=== PATIENT | male | born 1950 | race Caucasian/White ===

== ENCOUNTER → 2017-03-28 | Outpatient (CLI) | payer OTHER ==
[~2017-03-28] MED LIST: BLOOD PRESSURE; BLOOD SUGAR PO; CHOLESTEROL
[2017-03-28 17:17] LABS: BASO % 0.5 %; BASO ABS # 0.03 K/uL (0-0.2); COMPLETE YES; EOS % 2.3 %; IG% 0.8 %; LYMPH % 29.3 %; LYMPH ABS # 1.93 K/uL (1.2-3.4); MEAN CELL VOLUME 88.9 fL (80-100); MEAN CORPUSCULAR HEMOGLOBIN 30.2 pg (25-34); NEUT % 57.1 %; PLATELET COUNT 189 K/uL (130-400); RED BLOOD COUNT 5.06 M/uL (4.7-6.1); WHITE BLOOD COUNT 6.58 K/uL (4.8-10.8)
[2017-03-28 17:23] LABS: ALT/SGPT 34 U/L (12-78); BLOOD UREA NITROGEN 18 mg/dl (7-18); CALCIUM 9.9 mg/dl (8.5-10.1); CARBON DIOXIDE 29 mmol/L (21-32); CHLORIDE 100 mmol/L (98-107); CHOLESTEROL 120 mg/dl (0-200); CREATININE 0.94 mg/dl (0.60-1.40); GLUCOSE 165 mg/dl (70-99); POTASSIUM 3.7 mmol/L (3.5-5.1); SODIUM 136 mmol/L (136-145)
[2017-03-28 17:35] LABS: ALB/GLOB RATIO 0.9 (0.9-2); ALKALINE PHOSPHATASE 58 U/L (45-117); AST/SGOT 18 U/L (15-37); CHOLESTEROL/HDL RATIO 2.7; HDL CHOLESTEROL 45 mg/dl; LDL CHOLESTEROL CALCULATED 51 mg/dl; TRIGLYCERIDES 119 mg/dl (0-150); VERY LOW DENSITY LIPOPROT CALC 24 mg/dl
[2017-03-29 06:02] LABS: ESTIMATED AVERAGE GLUCOSE 160 mg/dl; HA1C FLAG Normal (Normal)
--- NOTE | 2017-04-03 12:30 | CODING QUERY MEDICAL NECESSITY ---
CQSUPPORTING DIAGNOSIS NEEDED A supporting diagnosis is required for the test/procedure performed on this patient in order for us to be reimbursed by the patient's insurance. Please provide a supporting diagnosis for the following test/procedure listed below next to the test name along with your signature. *If there is no additional diagnosis for this patient that would support the following test/procedure please document that below next to the test/procedure. Test(s)/Procedure(s) that require a supporting diagnosis: DOS 03/28/17 GLYCATED HEMOGLOBIN TEST Provider Signature: Date: Thank you Lea Devries Health Information Management Once completed, please kindly fax back to [phone] For questions please call [phone]
== END | disposition home or self-care (01) ==
LOC: C.LABBC 14:42
PROVIDERS: ATTEND Physician Assistant
DX: Z12.5 Encounter for screening for malignant neoplasm of prostate (principal); I21.3 ST elevation (STEMI) myocardial infarction of unspecified site; Z11.59 Encounter for screening for other viral diseases; E11.9 Type 2 diabetes mellitus without complications

== ENCOUNTER → 2018-01-22 | Outpatient (CLI) | payer OTHER ==
[2018-01-22 13:05] LABS: BASO % 0.6 %; BASO ABS # 0.04 K/uL (0-0.2); EOS % 2.1 %; EOS ABS # 0.14 K/uL (0-0.5); HEMATOCRIT 46.4 % (42-52); HEMOGLOBIN 15.8 g/dL (14.0-18.0); IG# 0.07 K/uL (0.00-0.02); LYMPH % 28.9 %; LYMPH ABS # 1.94 K/uL (1.2-3.4); MEAN CELL VOLUME 89.2 fL (80-100); MEAN CORPUSCULAR HEMOGLOBIN 30.4 pg (25-34); MEAN CORPUSCULAR HGB CONC 34.1 g/dl (32-36); MEAN PLATELET VOLUME 9.8 fL (7.4-10.4); MONO % 8.6 %; MONO ABS # 0.58 K/uL (0.11-0.59); NEUT % 58.8 %; NEUT ABS # 3.95 K/uL (1.4-6.5); PLATELET COUNT 175 K/uL (130-400); RED CELL DISTRIBUTION WIDTH CV 14.3 % (11.5-14.5); RED CELL DISTRIBUTION WIDTH SD 46.5 fL (36.4-46.3); WHITE BLOOD COUNT 6.72 K/uL (4.8-10.8)
[2018-01-22 13:41] LABS: HEMOGLOBIN A1C 7.7 % (4.5-5.6)
[2018-01-22 15:07] LABS: ALBUMIN 4.2 gm/dl (3.4-5.0); ALKALINE PHOSPHATASE 64 U/L (45-117); ALT/SGPT 35 U/L (12-78); AST/SGOT 23 U/L (15-37); BLOOD UREA NITROGEN 15 mg/dl (7-18); CALCIUM 9.9 mg/dl (8.5-10.1); CARBON DIOXIDE 28 mmol/L (21-32); CHOLESTEROL 130 mg/dl (0-200); CREATININE 0.85 mg/dl (0.60-1.40); GLUCOSE 140 mg/dl (70-99); LDL CHOLESTEROL CALCULATED 55 mg/dl; POTASSIUM 3.8 mmol/L (3.5-5.1); SODIUM 133 mmol/L (136-145); TOTAL PROTEIN 8.5 gm/dl (6.4-8.2)
== END | disposition home or self-care (01) ==
LOC: C.LABBC 11:40
PROVIDERS: ATTEND Internal Medicine
DX: Z00.00 Encounter for general adult medical examination without abnormal findings (principal); I10 Essential (primary) hypertension; E11.9 Type 2 diabetes mellitus without complications; E78.5 Hyperlipidemia, unspecified; I25.10 Atherosclerotic heart disease of native coronary artery without angina pectoris

== ENCOUNTER 2019-06-28 11:30 | Inpatient (IN) ==
--- NOTE | 2019-06-28 12:07 | CT Scan Report ---
HEAD CT NONCONTRAST CT DOSE: 1459.56 mGycm HISTORY: Stroke symptoms. Right arm weakness. stroke alert TECHNIQUE: Multiaxial CT images of the head were performed without the use of intravenous contrast. A utomated exposure control was utilized for this study. A dose lowering technique was utilized adheri ng to the principles of ALARA. Comparison: Head CT 02/11/2019. Findings: The paranasal sinuses and mastoid air cells are clear. The calvarium and skull base are int act. There is no mass, hematoma, midline shift, acute infarct. White matter hypodensity is nonspecifi c but suggestive of microvascular ischemic change. The ventricles and sulci demonstrate mild age-rela diane involutional changes. Motion artifact. Impression: Motion artifact. No definite acute intracranial abnormality. Electronically signed by: Lucas Manuel M.D. 06/28/2019 12:06 PM
[2019-06-28 12:21] LABS: Basophils # (auto) 0.02 K/uL (0-0.2); Basophils % (auto) 0.3 %; Eosinophils # (auto) 0.12 K/uL (0-0.5); Eosinophils % (auto) 1.8 %; Hematocrit (blood only) 44.9 % (42-52); Hemoglobin 15.1 g/dL (14.0-18.0); Immature Granulocytes # (auto) 0.06 K/uL (0.00-0.02); Immature Granulocytes % (auto) 0.9 %; Lymphocytes # (auto) 1.39 K/uL (1.2-3.4); Lymphocytes % (auto) 21.2 %; Mean Corpuscular Hemoglobin 30.7 pg (25-34); Mean Corpuscular Hgb Conc 33.6 g/dL (32-36); Mean Corpuscular Volume 91.3 fL (80-100); Mean Platelet Volume 10.4 fL (7.4-10.4); Monocytes # (auto) 0.54 K/uL (0.11-0.59); Monocytes % (auto) 8.2 %; Neutrophils # (auto) 4.42 K/uL (1.4-6.5); Neutrophils % (auto) 67.6 %; Platelet Count 147 K/uL (130-400); RDW Coefficient of Variation 14.8 % (11.5-14.5); Red Blood Count 4.92 M/uL (4.7-6.1); White Blood Count 6.55 K/uL (4.8-10.8)
[2019-06-28] MEDS ORDERED: TPA for Stroke IV STA (12:34)
[2019-06-28 12:36] LABS: INR 1.1 (0.9-1.1); Partial Thromboplastin Time 26.5 Seconds (21.0-31.0); Prothrombin Time 11.5 Seconds (9.0-12.0)
[2019-06-28 12:40] LABS: Alanine Aminotransferase 29 U/L (12-78); Aspartate Aminotransferase 17 U/L (15-37); BUN Creatinine Ratio 18.2 (10-20); Bilirubin,Total 1.1 mg/dl (0.2-1); Blood Urea Nitrogen 14 mg/dl (7-18); Calcium 9.3 mg/dl (8.5-10.1); Carbon Dioxide 28 mmol/L (21-32); Chloride 102 mmol/L (98-107); Creatinine Clr Calc Pharmacy 110.1 ml/min; Est GFR (African American) 110.6; Est GFR (Non-African American) 95.4; Globulin 4.2 gm/dl (2.5-4.0); Glucose 113 mg/dl (70-99); Magnesium 2.2 mg/dl (1.8-2.4); Potassium 3.6 mmol/L (3.5-5.1); Sodium 138 mmol/L (136-145); Total Protein 8.2 gm/dl (6.4-8.2)
[2019-06-28 12:43] LABS: Alkaline Phosphatase 58 U/L (45-117); Troponin I < 0.015 ng/ml (0-0.045)
[2019-06-28] MEDS ORDERED: Alteplase Bolus 8.2 MG in SYRINGE 0 ML IV ONE (12:44)
[2019-06-28] MEDS ORDERED: ALTEPLASE IV ONE (12:45)
[2019-06-28] MEDS ORDERED: PRIMARY PLUMSET, PE LINED TUBING, 113 IN, NON-DEHP (2260-0500) IV ONE (12:45)
[2019-06-28] MEDS ORDERED: RECOMBINANT IV ONE (12:45)
[2019-06-28 13:09] LABS: Appearance Urine Clear (Clear); Bilirubin Urine Negative (Negative); Blood Urine Negative (Negative); Color Urine Yellow; Glucose Urine UA Negative (Negative); Ketones Urine Negative (Negative); Leukocyte Esterase Urine Negative (Negative); Nitrite Urine Negative (Negative); Protein Urine Negative (Negative); Specific Gravity Urine 1.015 (1.000-1.030); Urobilinogen Urine Negative (Negative)
--- NOTE | 2019-06-28 14:06 | History & Physical Report ---
Date of Service June 28, 2019 Assessment & Plan (1) CVA (cerebrovascular accident): Admit to ICU for acute ischemic stroke Continue TPA Continue management of acute stroke Neurochecks every 4 hours as per protocol Speech/swallow study Echocardiogram US venous Doppler, to rule out DVT CT angio head /neck CBC CMP BNP Replenish electrolytes PT/OT Neurology consult Lipid panel Start aspirin for stroke Started atorvastatin 40 mg nightly p.o. Patient is full code Present on Admission?: Yes (2) Right arm weakness: As above Present on Admission?: Yes (3) Intellectual disability: Chronic, continue monitoring, continue home meds Present on Admission?: Yes (4) Diabetes: ACHS, SSI , Glycemic control per pharmacy, A1c Present on Admission?: Yes (5) Dyslipidemia: Lipid panel pending, started atorvastatin 40 mg p.o. nightly Present on Admission?: Yes (6) Hypertension: Continue triamterene 37.5/hydrochlorothiazide 25 mg tablet Monitor blood pressure every 4 hours Present on Admission?: Yes History of Present Illness Chief Complaint: Weakness of the right upper extremity Primary Care Provider: Renzo Patten MD Patient is a 69 years old male with past medical history of mental retardation since , diabetes mellitus, dyslipidemia, hypertension, was brought to the e mergency room with a concern that he cannot move his right hand since this morning 8:30 and he has CVA. Her physician called the stroke center in [facility] and they recommended to start TPA for ischemic stroke. Initial CT of the head did not define acute intracranial abnormality. There are visible areas of hypodensity that are nonspecific but suggestive of microvascular ischemic changes seen on the head CT without contrast. Patient is poor historian and review of system is is difficult. Brother who was sitting next to patient bedside states that patient did not have headache chills fever chest pain, shortness of breath, syncope, near syncope, fall, hematemesis, hematuria, dysuria, hemoptysis, nausea, vomiting. There is no change in bowel movements. Labs are reviewed: WBC 6.55, hemoglobin 15.1, hematocrit 44.9, platelets 147, PT 11.5, INR 1.1, APTT 26.5, sodium 138, potassium 3.6, chloride 102, BUN 14, creatinine 95.4, glucose 113, hemoglobin A1c pending, troponin -0 0.015, AST 17, ALT 29, magnesium 2.2 bilirubin 1.1. Urine all negative. Decision was made to admit patient to the ICU for further treatment and management of acute stroke. Allergies Allergy/AdvReac Type Severity Reaction Status Date / Time No Known Allergies Allergy Verified 05/18/19 11:09 Home Medications Home Medications Medication Instructions Recorded Confirmed Type aspirin 81 mg PO PM 11/13/18 05/18/19 History glimepiride 2 mg PO PM 11/13/18 05/18/19 History lovastatin 20 mg PO PM 11/13/18 05/18/19 History sitagliptin [Januvia] 100 mg PO PM 11/13/18 05/18/19 History metformin ER 500 mg 2,000 mg PO DAILY tab 05/14/19 05/18/19 History tablet,extended release 24 hr benzonatate 200 mg capsule 200 mg PO TID PRN #30 cap 05/18/19 05/18/19 Rx acetaminophen 500 mg tablet 1,000 mg PO PM 06/25/19 History triamterene 37.5 1 tab PO QAM tab 06/25/19 History mg-hydrochlorothiazide 25 mg tablet Past Med/Surg History Medical History History of small bowel obstruction (Resolved) Mentally challenged (Chronic) Diabetes (Chronic) Dyslipidemia (Chronic) Hypertension (Chronic) GI bleed (Resolved) Surgical History History of cholecystectomy (Resolved) History of colonoscopy (Resolved) Social History Preferred Language: Tuvaluan Communication Ability: Impaired Communication Ability Comment: mentally challenged/disability Refurbish Technician Required: No Beliefs That Will Affect Care: None Current Living Situation: Family Other Information That Helps Us Care for You: No Feels Safe at Home: Yes Safety Concerns: Feels Safe At This Time Smoking Status: Never smoker Do You Dip or Chew Tobacco: No ; Second Hand Exposure: No ; Tobacco Cessation Education Requested by Patient: No Hx Alcohol Use: No Hx Substance Use: No Review of Systems Review of Systems: All systems reviewed & are unremarkable except as noted in HPI & below Physical Exam Constitutional: WD/WN, vitals as above well developed and + obese Eyes: PERRL, conjunctivae normal, anicteric sclerae ENMT: external ear and nose normal, oropharynx normal Neck: trachea midline, no thyromegaly Respiratory: normal respiratory effort, lungs clear to auscultation Cardiovascular: RRR, no murmur, no edema Chest (Breasts): normal inspection/palpation of breasts Gastrointestinal (Abdomen): normal bowel sounds, soft, nontender, no hepatosplenomegaly Musculoskeletal: Right upper extremity weakness 2 of 5. Poor coordination. Patient is having mental disability and difficult to follow the instructions. Skin: no rashes, warm and dry Neurologic: patellar DTR's 2+ bilat, sensation intact Psychiatric: Patient with severe mental disability, nonverbal, unable to follow the instructions nor transferred to questions. Lymphatic: no cervical or axillary lymphadenopathy Results & Data Vital Signs (Past 12 Hours) Vital Signs Temp Pulse Pulse Resp BP BP Pulse Ox 06/28/19 13:51 75 18 158/73 H 96 06/28/19 13:37 76 20 139/76 96 06/28/19 13:21 74 22 150/84 H 96 06/28/19 13:07 74 18 152/94 H 97 06/28/19 12:53 76 18 158/97 H 96 06/28/19 12:24 78 20 158/74 H 97 06/28/19 12:09 72 20 162/89 H 97 06/28/19 12:01 97 06/28/19 11:59 78 22 173/96 H 97 06/28/19 11:58 96 06/28/19 11:34 36.9 C 81 18 179/102 H 100 Code Status & VTE Plan Code Status Family, brother POA requested full code VTE Prophylaxis Plan VTE Prophylaxis will be ordered: Yes PG Care Time/CCT Total # of Minutes Spent Total Time Spent with Patient: Total time spent is greater than 50% in coordination of care (as documented) at patient's floor/unit and/or counseling patient: (1) CVA (cerebrovascular accident) CVA mechanism: unspecified Qualified Code(s): I63.9 - Cerebral infarction, unspecified
--- NOTE | 2019-06-28 15:14 | Critical Care Consultation ---
Date of Consultation June 28, 2019 Assessment & Plan (1) CVA (cerebrovascular accident): REason Critically Ill: 69 year old man with history of intellectual disability who presents with stroke like symptoms status post TPA infusion Neuro: Right sided weakness last seen well at 8:[address] head, CTA head and neck negative Will consult neurology and continue to check neuro status Baseline intellectual disability, family says he is at his baseline Cardiovascular Possible stroke status post TPA Will monitor in ICU for 24 hours Rescan tomorrow around noon and step down to the floor Respiratory: No concerns at this time GI: No concern over GI issues at this time Renal: No concern for renal issues at this time. ID: No acute infection Dispo: ICU s/p TPA F/E/N: REgular diet DVT Ppx: Contraindicated secondary to TPA (2) Right arm weakness: (3) Intellectual disability: (4) History of small bowel obstruction: (5) History of cholecystectomy: (6) History of colonoscopy: (7) Mentally challenged: (8) Diabetes: (9) Dyslipidemia: Supervising Physician Co-Signing Physician Notes Dr. Swanson was the resident-physician during care of patient. I separately evaluated patient for taylor portions of the history and the exam. I was present during the critical portion of medical decision making, and I discussed the case with the resident. I generally agree with the findings and plan except for any additions/exceptions noted. Patient has baseline decrease mentation. Patient follows command. Keep systolic blood pressure less than 160. Continue with stroke protocol with neuro checks. Fall precautions. Follow-up CT head in [address] head is negative patient can be downgraded to medical floor. I have personally spent 35 minutes of critical care time in the direct management of this patient. This is a life/limb threatening event. This includes time spent evaluating patient, direct bedside care, chart review, placing orders, interpretation of diagnostic studies, discussion with consultants, patient, and/or family members regarding treatment decisions, as well as other required patient management activities. This time is exclusive of all separately billable procedures, and teaching time and separate from and in addition to any other critical care service time. History of Present Illness Reason for Consultation: Stroke; status post TPA Requesting Physician: Dr. Lazaro BUTLER Attending Physician: Dr. Bhumika BUTLER History of Present Illness Allen Bella is a 69 year old man with a past medical history significant for mental retardation, hypertension, hyperlipidemia, type II diabetes, and living under care of his brother. He was last seen well at around 8:30 this morning before he went in to a group adult daycare around nine am his family was called saying something was wrong with the right side of his body in particular his right arm. He was brought in to the emergency department and noted to have some abnormal right arm muscle strength and tone. After consulting with [facility] the decision was made to begin TPA. Patient is currently resting comfortably and says he feels fine. He is unable to give me a very thorough history but most of the history has been provided from his brother and sister who are present at bedside and the emergency room physician taking care of him. Allergies Allergy/AdvReac Type Severity Reaction Status Date / Time No Known Allergies Allergy Verified 05/18/19 11:09 Home Medications Home Medications Medication Instructions Recorded Confirmed Type aspirin 81 mg PO PM 11/13/18 05/18/19 History glimepiride 2 mg PO PM 11/13/18 05/18/19 History lovastatin 20 mg PO PM 11/13/18 05/18/19 History sitagliptin [Januvia] 100 mg PO PM 11/13/18 05/18/19 History metformin ER 500 mg 2,000 mg PO DAILY tab 05/14/19 05/18/19 History tablet,extended release 24 hr benzonatate 200 mg capsule 200 mg PO TID PRN #30 cap 05/18/19 05/18/19 Rx acetaminophen 500 mg tablet 1,000 mg PO PM 06/25/19 History triamterene 37.5 1 tab PO QAM tab 06/25/19 History mg-hydrochlorothiazide 25 mg tablet Patient History Medical History History of small bowel obstruction (Resolved) Mentally challenged (Chronic) Diabetes (Chronic) Dyslipidemia (Chronic) Hypertension (Chronic) GI bleed (Resolved) Surgical History History of cholecystectomy (Resolved) History of colonoscopy (Resolved) Social History Preferred Language: Armenian Communication Ability: Impaired Communication Ability Comment: mentally challenged/disability Compact Assembler Required: No Beliefs That Will Affect Care: None Current Living Situation: Family Other Information That Helps Us Care for You: No Feels Safe at Home: Yes Safety Concerns: Feels Safe At This Time Smoking Status: Never smoker Do You Dip or Chew Tobacco: No ; Second Hand Exposure: No ; Tobacco Cessation Education Requested by Patient: No Hx Alcohol Use: No Hx Substance Use: No Review of Systems Review of Systems: Unobtainable due to cognitive status Physical Exam Physical Exam: Constitutional: Patient appears comfortable and content, no apparent distress Eyes: EOMMI, PERRLA, anicteric sclerae ENMT: No abnormalities detected REspiratory: Chest expansion clear, regular resp rate, lungs clear to auscultation, breath sounds vesicular Cardiovascular: Regular rate and rhythm, no murmurs, rubs skips, or gallops. No edema, distal pulses intact GI: Abdomen soft, nontender Skin: No evidence of bleeding or ecchymosis Neuro: Right upper extremity weakness, difficult to obtain numbness. Patient is mentally challenged baseline Results & Data Vital Signs (Past 12 Hours) Vital Signs Temp Pulse Pulse Resp BP BP Pulse Ox 06/28/19 15:00 76 20 133/67 97 06/28/19 14:22 80 18 150/71 H 96 06/28/19 14:07 78 18 138/83 96 06/28/19 13:51 75 18 158/73 H 96 06/28/19 13:37 76 20 139/76 96 06/28/19 13:21 74 22 150/84 H 96 06/28/19 13:07 74 18 152/94 H 97 06/28/19 12:53 76 18 158/97 H 96 06/28/19 12:24 78 20 158/74 H 97 06/28/19 12:09 72 20 162/89 H 97 06/28/19 12:01 97 06/28/19 11:59 78 22 173/96 H 97 06/28/19 11:58 96 06/28/19 11:34 36.9 C 81 18 179/102 H 100 PG Care Time/CCT Total # of Minutes Spent Total Time Spent with Patient: Total time spent is greater than 50% in coordination of care (as documented) at patient's floor/unit and/or counseling patient: Resident Activity Tracking Resident Involvement: Resident Care Provided Care Provided: Adult Hospital Medicine (1) CVA (cerebrovascular accident) CVA mechanism: unspecified Qualified Code(s): I63.9 - Cerebral infarction, unspecified
[2019-06-28] MEDS ORDERED: CARBOHYDRATES FOR HYPOGLYCEMIA PO PRN (16:02)
[2019-06-28] MEDS ORDERED: BENZONATATE 100 MG CAPSULE PO PRN (16:02)
[2019-06-28] MEDS ORDERED: DEXTROSE 50% 50 ML SYRINGE IV PRN (16:02)
[2019-06-28] MEDS ORDERED: GLUCAGON FOR INJ 1 MG VIAL SQ PRN (16:02)
[2019-06-28] MEDS ORDERED: GLUCOSE 10 TABS/TUBE PO PRN (16:02)
[2019-06-28] MEDS ORDERED: GLUCOSE 40% GEL 15 GM TUBE PO PRN (16:02)
[2019-06-28] MEDS ORDERED: PHARMACY GLYCEMIC MGMT CONSULT PRN (16:12)
[2019-06-28] MEDS ORDERED: PHARMACIST DISCHARGE MED REC CONSULT PRN (16:13)
[2019-06-28] MEDS ORDERED: OPTIRAY 320 125ml IV PRN (17:23)
--- NOTE | 2019-06-28 17:50 | Emergency Department Note ---
Entered by Tonie Amaral acting as a scribe for History of Present Illness General Chief complaint: Weakness Stated complaint: RT ARM NO STRENGTH/RT LEG Source: patient Limitations: other (MR) History of Present Illness Provider complaint: Stroke Symptoms Onset (ago): hour(s) 3 Location: head Radiation: extremity (Right arm) Maximum Pain Intensity: 0 Exacerbated By: + none Associated symptoms: + other (Right wrist limp) The patient is a 69 year old male who presents to the Emergency Room with complaints of stroke symptoms that began about 3 hours ago. The patient's family states that the symptoms radiate into the patient's right arm and are not exacerbated by anything specific. The patient's family reports that the patient's last known well was at 8:30am and now he is experiencing right wrist weakness. The patient's family denies any recent falls or trauma and the patient has not been sick. The patient's family denies any history of stroke. HPI and ROS limited secondary to MR. Patient has had some more difficulty getting around lately and has been using his walker more frequently. Home Medications Home Medications Medication Instructions Recorded Confirmed Type aspirin 81 mg PO PM 11/13/18 05/18/19 History glimepiride 2 mg PO PM 11/13/18 05/18/19 History lovastatin 20 mg PO PM 11/13/18 05/18/19 History sitagliptin [Januvia] 100 mg PO PM 11/13/18 05/18/19 History metformin ER 500 mg 2,000 mg PO DAILY tab 05/14/19 05/18/19 History tablet,extended release 24 hr benzonatate 200 mg capsule 200 mg PO TID PRN #30 cap 05/18/19 05/18/19 Rx acetaminophen 500 mg tablet 1,000 mg PO PM 06/25/19 History triamterene 37.5 1 tab PO QAM tab 06/25/19 History mg-hydrochlorothiazide 25 mg tablet Allergies Allergy/AdvReac Type Severity Reaction Status Date / Time No Known Allergies Allergy Verified 05/18/19 11:09 Past Med/Surg History Medical History History of small bowel obstruction (Resolved) Mentally challenged (Chronic) Diabetes (Chronic) Dyslipidemia (Chronic) Hypertension (Chronic) GI bleed (Resolved) Surgical History History of cholecystectomy (Resolved) History of colonoscopy (Resolved) Social History Preferred Language: French Communication Ability: Impaired Communication Ability Comment: mentally challenged/disability 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 Physical Exam Vital Signs Vital Signs - 24 hr 06/28/19 11:34 06/28/19 11:58 06/28/19 11:59 Temperature 36.9 C Temperature Source Oral Sepsis Recent Fever Within 48 Hours No Sepsis New/Unexplained Change in Mental Status No Sepsis Action Taken by Nursing No Action Required Pulse Rate 81 Pulse Rate [Apical] 78 Pulse Rhythm [Apical] Regular Pulse Strength [Apical] Respiratory Rate 18 22 Respiratory Effort / Characteristics Non-Labored Spontaneous Respiratory Depth Normal Respiratory Pattern Blood Pressure 179/102 H Blood Pressure [Right Arm] 173/96 H Blood Pressure Mean 127 Blood Pressure Mean [Right Arm] 121 Blood Pressure Position Sitting Blood Pressure Position [Right Arm] Pulse Oximetry 100 96 97 Oxygen Delivery Method Room Air Room Air 06/28/19 12:01 06/28/19 12:09 06/28/19 12:24 Temperature Temperature Source Sepsis Recent Fever Within 48 Hours Sepsis New/Unexplained Change in Mental Status Sepsis Action Taken by Nursing Pulse Rate Pulse Rate [Apical] 72 78 Pulse Rhythm [Apical] Regular Regular Pulse Strength [Apical] Normal Normal Respiratory Rate 20 20 Respiratory Effort / Characteristics Non-Labored Spontaneous Respiratory Depth Normal Normal Respiratory Pattern Blood Pressure Blood Pressure [Right Arm] 162/89 H 158/74 H Blood Pressure Mean Blood Pressure Mean [Right Arm] 113 102 Blood Pressure Position Blood Pressure Position [Right Arm] Pulse Oximetry 97 97 97 Oxygen Delivery Method Room Air Room Air Room Air 06/28/19 12:53 06/28/19 13:07 06/28/19 13:21 Temperature Temperature Source Sepsis Recent Fever Within 48 Hours Sepsis New/Unexplained Change in Mental Status Sepsis Action Taken by Nursing Pulse Rate Pulse Rate [Apical] 76 74 74 Pulse Rhythm [Apical] Regular Regular Regular Pulse Strength [Apical] Normal Normal Normal Respiratory Rate 18 18 22 Respiratory Effort / Characteristics Non-Labored Non-Labored Non-Labored Respiratory Depth Normal Normal Normal Respiratory Pattern Regular Blood Pressure Blood Pressure [Right Arm] 158/97 H 152/94 H 150/84 H Blood Pressure Mean Blood Pressure Mean [Right Arm] 117 113 106 Blood Pressure Position Blood Pressure Position [Right Arm] Sitting Pulse Oximetry 96 97 96 Oxygen Delivery Method Room Air Room Air Room Air 06/28/19 13:37 06/28/19 13:51 Temperature Temperature Source Sepsis Recent Fever Within 48 Hours Sepsis New/Unexplained Change in Mental Status Sepsis Action Taken by Nursing Pulse Rate Pulse Rate [Apical] 76 75 Pulse Rhythm [Apical] Regular Regular Pulse Strength [Apical] Normal Normal Respiratory Rate 20 18 Respiratory Effort / Characteristics Non-Labored Respiratory Depth Normal Normal Respiratory Pattern Blood Pressure Blood Pressure [Right Arm] 139/76 158/73 H Blood Pressure Mean Blood Pressure Mean [Right Arm] 97 101 Blood Pressure Position Blood Pressure Position [Right Arm] Pulse Oximetry 96 96 Oxygen Delivery Method Room Air GENERAL: Patient is in no acute distress. HEENT: No acute trauma, normocephalic atraumatic, mucous membranes moist, no nasal congestion, no scleral icterus. NECK: No stridor, no adenopathy, no meningismus, trachea is midline. LUNGS: Clear to auscultation bilaterally, no wheeze, no rhonchi, breath sounds equal. HEART: Without murmurs gallops or rubs, regular rate and rhythm. ABDOMEN: Soft, nontender, bowel sounds positive, no hernias, no peritonitis. EXTREMITIES: No cyanosis or edema, full range of motion of all the joints without pain or difficulty, no signs for acute trauma. NEUROLOGIC: Some speech slur which is apparently baseline. No facial droop. No weakness in lower extremities. Right wrist supervisor covering and lining is poor. Movement of right arm seems uncontrolled. Proximal arm strength seems reasonable while distal arm is weak. SKIN: No rash, no jaundice, no diaphoresis. Course 1138: Past medical records reviewed. The patient was evaluated in room A01. A complete history and physical exam was performed. 1154: I spoke with Dr. Langley Sur[facility] about the patient's case. 1221: I followed up with Dr. Bundy about the patient's case and she believes she sees something on the CT that was not reported by radiology. 1226: I spoke with Dr. Manuel- Maggie about the patient's CT. The finding on CT noted by neurology was felt old, not subacute. 1245: I spoke with Dr. Bonilla about the patient's case and accepted the patient for further evaluation. 1253: I spoke with Dr. Corbett about the patient's case. Administered Medications Insulin Aspart (Novolog Flexpen) 0 units SC ACHS RONNIE Stop: 07/28/19 16:29 Last Admin: 06/28/19 18:01 Dose: 2 units Documented by: [id number] Cosigned by: [id number] Ioversol (Optiray 320 125ml) 120 ml IV ONCE PRN PRN Reason: Interaction Checking Stop: 07/02/19 17:22 Last Admin: 06/28/19 17:26 Dose: 120 ml Documented by: [id number] Discontinued Medications Alteplase, Recombinant (Activase For Stroke) 1 ea IV NOW STA; Protocol Stop: 06/28/19 12:35 Last Admin: 06/28/19 18:02 Dose: Not Given Documented by: [id number] Alteplase, Recombinant 8.2 mg/ (Syringe) 8.2 mls @ 8.2 mls/min IV ONCE ONE Stop: 06/28/19 12:45 Last Admin: 06/28/19 12:37 Dose: 8.2 mls/min Documented by: [id number] Cosigned by: [id number] Alteplase, Recombinant 74 mg/ (EMPTY BAG) 0.74 mls @ 0.74 mls/hr IV ONCE ONE Stop: 06/28/19 12:46 Last Infusion: 06/28/19 13:54 Dose: 0 mls/hr Documented by: [id number] Cosigned by: [id number] Admin: 06/28/19 12:39 Dose: 0.7 mls/hr Documented by: [id number] Cosigned by: [id number] Medical Decision Making Differential Diagnosis Differentials Include: Stroke, intracranial bleed, electrolyte imbalance, anemia, infection, medication reaction, seizure, nerve impingement, and trauma. Medical Records Attestation: I reviewed the patient's medical records. Home Medications Current Medication List: was personally reviewed by me Laboratory Data Attestation: I reviewed the patient's lab results. Result diagrams: 06/28/19 12:06 06/28/19 12:06 Lab Results 06/28/19 06/28/19 06/28/19 Range/Units 11:56 12:06 12:06 WBC 6.55 (4.8-10.8) K/uL RBC 4.92 (4.7-6.1) M/uL Hgb 15.1 (14.0-18.0) g/dL Hct 44.9 (42-52) % MCV 91.3 (80-100) fL MCH 30.7 (25-34) pg MCHC 33.6 (32-36) g/dL RDW Std Deviation 50.0 H (36.4-46.3) fL RDW Coeff of Ludin 14.8 H (11.5-14.5) % Plt Count 147 (130-400) K/uL MPV 10.4 (7.4-10.4) fL Immature Gran % (Auto) 0.9 % Neut % (Auto) 67.6 % Lymph % (Auto) 21.2 % [place] % (Auto) 8.2 % Eos % (Auto) 1.8 % Baso % (Auto) 0.3 % Immature Gran # (Auto) 0.06 H (0.00-0.02) K/uL Neut # (Auto) 4.42 (1.4-6.5) K/uL Lymph # (Auto) 1.39 (1.2-3.4) K/uL Candler # (Auto) 0.54 (0.11-0.59) K/uL Eos # (Auto) 0.12 (0-0.5) K/uL Baso # (Auto) 0.02 (0-0.2) K/uL PT 11.5 (9.0-12.0) Seconds INR 1.1 (0.9-1.1) APTT 26.5 (21.0-31.0) Seconds PTT Ratio 1.0 Sodium (136-145) mmol/L Potassium (3.5-5.1) mmol/L Chloride (98-107) mmol/L Carbon Dioxide (21-32) mmol/L Anion Gap (3-11) BUN (7-18) mg/dl Creatinine (0.6-1.4) mg/dl Est Cr Clr Drug Dosing ml/min Est GFR ( Amer) Est GFR (Non-Af Amer) BUN/Creatinine Ratio (10-20) Glucose (70-99) mg/dl POC Glucose 110 H (70-99) Calcium (8.5-10.1) mg/dl Magnesium (1.8-2.4) mg/dl Total Bilirubin (0.2-1) mg/dl AST (15-37) U/L ALT (12-78) U/L Alkaline Phosphatase (45-117) U/L Troponin I (0-0.045) ng/ml Total Protein (6.4-8.2) gm/dl Albumin (3.4-5.0) gm/dl Globulin (2.5-4.0) gm/dl Albumin/Globulin Ratio (0.9-2) Urine Color Urine Appearance (Clear) Urine pH (4.5-7.5) Ur Specific [place] (1.000-1.030) Urine Protein (Negative) Urine Glucose (UA) (Negative) Urine Ketones (Negative) Urine Blood (Negative) Urine Nitrite (Negative) Urine Bilirubin (Negative) Urine Urobilinogen (Negative) Ur Leukocyte Esterase (Negative) 06/28/19 06/28/19 Range/Units 12:06 12:55 WBC (4.8-10.8) K/uL RBC (4.7-6.1) M/uL Hgb (14.0-18.0) g/dL Hct (42-52) % MCV (80-100) fL MCH (25-34) pg MCHC (32-36) g/dL RDW Std Deviation (36.4-46.3) fL RDW Coeff of Ludin (11.5-14.5) % Plt Count (130-400) K/uL MPV (7.4-10.4) fL Immature Gran % (Auto) % Neut % (Auto) % Lymph % (Auto) % Cand[place] % (Auto) % Eos % (Auto) % Baso % (Auto) % Immature Gran # (Auto) (0.00-0.02) K/uL Neut # (Auto) (1.4-6.5) K/uL Lymph # (Auto) (1.2-3.4) K/uL Cand[place] # (Auto) (0.11-0.59) K/uL Eos # (Auto) (0-0.5) K/uL Baso # (Auto) (0-0.2) K/uL PT (9.0-12.0) Seconds INR (0.9-1.1) APTT (21.0-31.0) Seconds PTT Ratio Sodium 138 (136-145) mmol/L Potassium 3.6 (3.5-5.1) mmol/L Chloride 102 (98-107) mmol/L Carbon Dioxide 28 (21-32) mmol/L Anion Gap 8.0 (3-11) BUN 14 (7-18) mg/dl Creatinine 0.74 (0.6-1.4) mg/dl Est Cr Clr Drug Dosing 110.1 ml/min Est GFR ( Amer) 110.6 Est GFR (Non-Af Amer) 95.4 BUN/Creatinine Ratio 18.2 (10-20) Glucose 113 H (70-99) mg/dl POC Glucose (70-99) Calcium 9.3 (8.5-10.1) mg/dl Magnesium 2.2 (1.8-2.4) mg/dl Total Bilirubin 1.1 H (0.2-1) mg/dl AST 17 (15-37) U/L ALT 29 (12-78) U/L Alkaline Phosphatase 58 (45-117) U/L Troponin I < 0.015 (0-0.045) ng/ml Total Protein 8.2 (6.4-8.2) gm/dl Albumin 4.0 (3.4-5.0) gm/dl Globulin 4.2 H (2.5-4.0) gm/dl Albumin/Globulin Ratio 1.0 (0.9-2) Urine Color Yellow Urine Appearance Clear (Clear) Urine pH 6.0 (4.5-7.5) Ur Specific [place] 1.015 (1.000-1.030) Urine Protein Negative (Negative) Urine Glucose (UA) Negative (Negative) Urine Ketones Negative (Negative) Urine Blood Negative (Negative) Urine Nitrite Negative (Negative) Urine Bilirubin Negative (Negative) Urine Urobilinogen Negative (Negative) Ur Leukocyte Esterase Negative (Negative) Imaging Data Radiologist's Impression: Radiology results as stated below per my review and the radiologist's interpretation: HEAD CT NONCONTRAST CT DOSE: 1459.56 mGycm HISTORY: Stroke symptoms. Right arm weakness. stroke alert TECHNIQUE: Multiaxial CT images of the head were performed without the use of intravenous contrast. Automated exposure control was utilized for this study. A dose lowering technique was utilized adhering to the principles of ALARA. Comparison: Head CT 02/11/2019. Findings: The paranasal sinuses and mastoid air cells are clear. The calvarium and skull base are intact. There is no mass, hematoma, midline shift, acute infarct. White matter hypodensity is nonspecific but suggestive of microvascular ischemic change. The ventricles and sulci demonstrate mild age-related involutional changes. Motion artifact. Impression: Motion artifact. No definite acute intracranial abnormality. Electronically signed by: Lucas Manuel M.D. 06/28/2019 12:06 PM ECG Data Attestation: I personally reviewed and interpreted this ECG as follows: Indication: weakness Rate (beats per minute): 77 Rhythm: sinus rhythm Findings: + other (Old inferior infarct, QTC 407), + PAC and + T-wave inversion (Lateral); no ST elevation Comparison ECG Date: from (02/11/2019) Change: no significant change Blood Pressure Blood Pressure Findings: Elevated blood pressure Blood Pressure Disposition: further management by hospitalist [facility] Narrative There is no leukocytosis or worrisome anemia. No coagulopathy. No significant electrolyte abnormality or kidney failure. No evidence for liver enzyme elevation. EKG showed a sinus rhythm, no acute ischemia. Cardiac enzyme testing x1 is not consistent with acute cardiac injury. Urinalysis does not show evidence for infection. Brain CT shows no acute bleed or mass-effect. The patient presents with right arm weakness. Certainly, his findings were consistent with CVA. Given the findings and timing, a stroke alert was called. The patient was seen by neurology via telemedicine. Risks and benefits of TPA administration were discussed with the patient's brother. Patient did not have any contraindications for TPA. Blood pressure was reasonable. TPA was administered as he was within the 4-1/2-hour time window. There was some delay with TPA administration as there was some question on the CT reading that I discussed not only with neurology but also with the radiologist. The patient is in need of a hospital stay. His findings are consistent with CVA. He has been given TPA, hopefully we will see some improvement in his right arm weakness over the next few hours. I did speak to case management, I did consult the hospitalist as well as the ICU attending. Impression & Plan CVA (cerebrovascular accident), Right arm weakness, Intellectual disability Critical Care Time Critical Care Time: Yes Total Critical Care Time: 50 I have personally spent 50 minutes of critical care time in the direct management of this patient. This includes bedside care, interpretation of diagnostic studies, and testing, discussion with consultants, patient, and family members, and other required patient management activities. This 50 minutes is in excess of all separately billable procedures. Discharge Plan Visit Data *Final* Discharge Date/Time: 06/28/19 15:42 Chief Complaint: Weakness Stated Complaint: RT ARM NO STRENGTH/RT LEG ED Provider: Carlton Coelho Discharge Problem: CVA (cerebrovascular accident), Right arm weakness, Intellectual disability Patient Disposition: Admitted As Inpatient Discharge Instructions Interventions: ED Discharge Assessment Last Done: 06/28/19 15:42 Discharge Problem: CVA (cerebrovascular accident) Qualifiers: CVA mechanism: unspecified Qualified Code(s): I63.9 - Cerebral infarction, unsp ecified The scribe's documentation has been prepared under my direction and personally reviewed by me in its entirety. I confirm that the note above accurately reflects all work, treatment, procedures, and medical decision making performed by me.
[2019-06-28] MEDS: INSULIN ASPART 100 UNITS/ML 3 ML PEN SC SCH ×2 (18:01→20:38)
--- NOTE | 2019-06-28 18:03 | Ultrasound Report ---
US venous doppler LE CLINICAL HISTORY: 69 years-old Male presenting with stroke, leg pain, concern for DVT. TECHNIQUE: Real-time grayscale and color and spectral Doppler ultrasound imaging of the veins of the bilateral lower extremities was performed. Compression and augmentation were also utilized. COMPARISON: None. FINDINGS: RIGHT: Common femoral vein: Patent. Greater saphenous vein (superficial): Patent. Deep femoral vein: Patent. Femoral vein: Patent. Popliteal vein: Patent. Calf veins: Patent. LEFT: Common femoral vein: Patent. Greater saphenous vein (superficial): Patent. Deep femoral vein: Patent. Femoral vein: Patent. Popliteal vein: Patent. Calf veins: Patent. Other: None. IMPRESSION: No evidence of deep venous thrombosis. Electronically signed by: Renzo Ruth M.D. 06/28/2019 6:02 PM
--- NOTE | 2019-06-28 18:08 | CT Scan Report ---
CT ANGIOGRAM OF THE BRAIN; CT ANGIOGRAM OF THE NECK CLINICAL HISTORY: Strokelike symptoms. Right arm weakness. COMPARISON STUDY: Unenhanced CT of the brain performed the same day 06/28/2019. Carotid artery ultras ound dated 10/18/2010. TECHNIQUE: Following the IV administration of 120 of Optiray 320, CT angiogram of the head and neck w as performed from the aortic arch to the vertex. Images are reviewed in the axial, sagittal, and esteban nal planes. 3-D MIPS images are created and assessed. IV contrast was administered without complicati on. All measurements were calculated based on NASCET criteria. A dose lowering technique was utilize d adhering to the principles of ALARA. CT DOSE: 1305.96 mGycm FINDINGS: Brain parenchyma: There is age-related involutional change noting mild to moderate patchy subcortical and periventricular microangiopathic disease. There is no hemorrhage or mass effect. There is no vitaliy dence of enhancing mass lesion on the angiogram phase images. The ventricles, sulci, and cisterns are prominent secondary to involutional change. Question loss of alcantar-white matter differentiation left posterior parietal lobe. No extra-axial fluid collection is seen. Thoracic aorta: There is mild atherosclerotic calcification of the thoracic aorta. Visualized portion s of the thoracic aorta are normal in caliber. The aortic arch demonstrates standard 3-vessel anatomy . Right carotid arterial system: The right common carotid artery is widely patent, as are the right int ernal and external carotid arteries. Atherosclerotic plaque is noted in the carotid bulb. Left carotid arterial system: The left common carotid artery is widely patent. Advanced atherosclerot ic plaque is noted in the carotid bulb. There is high-grade stenosis with near complete occlusion (gr eater than 90% stenosis) at the origin of the left internal carotid artery. There is also high-grade stenosis with near complete occlusion at the origin of the left external carotid artery. Vertebral arteries: The vertebral arteries are patent bilaterally noting a right-sided dominance. Subclavian arteries: Widely patent bilaterally. Intracranial vasculature: There is atherosclerotic calcification of the cavernous carotid and vertebr al arteries. The internal carotid arteries are patent at the skull base, as are the anterior and midd le cerebral arteries bilaterally. The vertebrobasilar system and posterior cerebral arteries are wide ly patent. The right vertebral artery is dominant. There is no aneurysm, high-grade stenosis, or foca l vessel cut off seen throughout the intracranial circulation. Jugular veins: Patent bilaterally. Dural sinuses: Patent. Lung apices: Partially visualized upper lobe lung parenchyma appears clear. Soft tissues: The visualized pharyngeal soft tissues are normal in appearance noting angiographic pha se technique. The oropharyngeal airway appears widely patent. The salivary and thyroid glands are nor mal in appearance. No cervical lymphadenopathy is seen. Skeletal structures: The skeletal structures are osteopenic. The calvarium appears intact. The cervic al spine is maintained noting multilevel spondylosis. No lytic or blastic lesion is seen. Orbits: The bony orbits are intact. Orbital contents are normal in appearance. Sinuses and mastoids: Trace mucosal thickening is noted in the right maxillary antrum. The remaining paranasal sinuses are clear. The mastoid air cells are well pneumatized. IMPRESSION: 1. Question focal loss of alcantar-white matter differentiation is the left posterior parietal lobe. A fo cus of acute to subacute ischemia is not excluded. Consider MRI for further assessment. 2. Unremarkable CT angiogram of the brain. 3. There is high-grade stenosis (greater than 90%) at the origin of the left internal carotid artery. The remainder of the left internal carotid artery is patent. 4. There is also high-grade stenosis at the origin of the left external carotid artery. 5. The right carotid arterial system and the vertebral arteries are patent. Electronically signed by: Carlton Shen M.D. 06/28/2019 6:07 PM
[2019-06-28] MEDS: CALCIUM CARBONATE 500 MG CHEWABLE TAB PO PRN (19:35)
[2019-06-28] MEDS ORDERED: ACETAMINOPHEN 325 MG TAB PO PRN (20:28)
[2019-06-28] MEDS ORDERED: LOVASTATIN 20 MG TAB PO SCH (21:00)
[2019-06-28] MEDS ORDERED: ASPIRIN 81 MG ECTAB PO SCH (21:00)
[2019-06-29] MEDS: TRIAMTERENE/HCTZ 37.5/25MG TAB PO SCH (07:49)
[2019-06-29] MEDS: ATORVASTATIN 40 MG TAB PO SCH (07:49)
[2019-06-29] MEDS: INSULIN ASPART 100 UNITS/ML 3 ML PEN SC SCH ×4 (07:49→20:40)
[2019-06-29] MEDS: CALCIUM CARBONATE 500 MG CHEWABLE TAB PO PRN ×2 (07:52→17:59)
--- NOTE | 2019-06-29 08:58 | Critical Care Progress Note ---
Date of Service June 29, 2019 Assessment & Plan (1) CVA (cerebrovascular accident): REason Critically Ill: 69 year old man with history of intellectual disability who presents with stroke like symptoms status post TPA infusion Neuro: Right sided weakness last seen well at 8:[address] head, CTA head and neck negative Will consult neurology and continue to check neuro status Baseline intellectual disability, family says he is at his baseline Cardiovascular Possible stroke status post TPA Will monitor in ICU for [address] head at around 1 pm today. Potentially able to step down pending normal scan Respiratory: No concerns at this time GI: No concern over GI issues at this time Renal: No concern for renal issues at this time. ID: No acute infection Dispo: ICU s/p TPA F/E/N: REgular diet DVT Ppx: Contraindicated secondary to TPA (2) Right arm weakness: (3) Intellectual disability: (4) History of small bowel obstruction: (5) History of cholecystectomy: (6) History of colonoscopy: (7) Diabetes: (8) Dyslipidemia: Supervising Physician Co-Signing Physician Notes Dr. Swanson was the resident-physician during care of patient. I separately evaluated patient for taylor portions of the history and the exam. I was present during the critical portion of medical decision making, and I discussed the case with the resident. I generally agree with the findings and plan except for any additions/exceptions noted. Patient doing better. No adverse events to TPA. Blood pressure well controlled. Denies any complaints. We will repeat a CT head today. Patient should be able to go to stepdown unit. Right upper extremity weakness still persists. No slurring of speech appreciated. No difficulty swallowing. Mild crackles appreciated bilateral lower lobes. Will start patient on incentive spirometry. I have personally spent 32 minutes of critical care time in the direct management of this patient. This is a life/limb threatening event. This includes time spent evaluating patient, direct bedside care, chart review, placing orders, interpretation of diagnostic studies, discussion with consultants, patient, and/or family members regarding treatment decisions, as well as other required patient management activities. This time is exclusive of all separately billable procedures, and teaching time and separate from and in addition to any other critical care service time. Tito Bella is resting comfortably this morning, no apparent distress. He tells me he is not having any pain, and he feels normal. Review of Systems Review of Systems: All systems reviewed & are unremarkable except as noted in HPI & below Physical Exam Physical Exam: Constitutional: Patient appears comfortable and content, no apparent distress Eyes: EOMMI, PERRLA, anicteric sclerae ENMT: No abnormalities detected REspiratory: Chest expansion clear, regular resp rate, lungs clear to auscultation, breath sounds vesicular Cardiovascular: Regular rate and rhythm, no murmurs, rubs skips, or gallops. No edema, distal pulses intact GI: Abdomen soft, nontender Skin: No evidence of bleeding or ecchymosis Neuro: Right upper extremity weakness, difficulty raising it above about a 35 degree angle of flexion. Difficulty touching my finger with right hand as well. Cannot make a point. difficult to ascertain sensation. Results & Data Vital Signs (Past 12 Hours) Vital Signs Temp Pulse Pulse Resp BP BP BP 06/29/19 08:30 81 16 142/87 H 06/29/19 07:30 36.7 C 73 15 136/83 06/29/19 06:30 74 18 155/85 H 06/29/19 05:30 73 20 134/90 06/29/19 04:30 75 18 165/82 H 06/29/19 03:30 36.7 C 71 20 156/94 H 156/94 H 06/29/19 02:30 73 20 146/78 H 06/29/19 01:30 71 18 160/94 H 06/29/19 00:30 36.8 C 71 22 161/90 H 06/28/19 23:30 73 20 140/87 06/28/19 22:30 36.8 C 72 20 114/86 06/28/19 21:30 83 18 110/76 06/28/19 21:00 78 110/76 Pulse Ox 06/29/19 08:30 93 06/29/19 07:30 93 06/29/19 06:30 92 06/29/19 05:30 94 06/29/19 04:30 96 06/29/19 03:30 94 06/29/19 02:30 95 06/29/19 01:30 95 06/29/19 00:30 93 06/28/19 23:30 96 06/28/19 22:30 95 06/28/19 21:30 99 06/28/19 21:00 97 PG Care Time/CCT Total # of Minutes Spent Total Time Spent with Patient: Total time spent is greater than 50% in c oordination of care (as documented) at patient's floor/unit and/or counseling patient: Critical Care Time: Yes Total Critical Care Time: 32 Resident Activity Tracking Resident Involvement: Resident Care Provided Care Provided: Adult Hospital Medicine (1) CVA (cerebrovascular accident) CVA mechanism: unspecified Qualified Code(s): I63.9 - Cerebral infarction, unspecified
[2019-06-29] MEDS ORDERED: INSULIN GLARGINE SOLOSTAR 100 UNITS/ML 3 ML PEN SC SCH (09:30)
--- NOTE | 2019-06-29 10:07 | Neurology Consultation ---
Date of Consultation June 29, 2019 Assessment & Plan (1) CVA (cerebrovascular accident): Probable acute stroke localizing to the left cerebral hemisphere resulting in a persistent right hemiparesis, primarily affecting the distal right upper extremity with subtle involvement of the face as well. There may be some associated neurocognitive dysfunction as well although this issue is a bit difficult to assess in light of his history of intellectual disability. He was able to name and repeat simple phrases but did have some difficulty following commands. He does have some signs of visual neglect to the right. Stroke etiology likely large vessel atheroembolic related to the greater than 90% stenosis of the left internal carotid artery. I would recommend a brain MRI with and without contrast for further assessment. Patient will also need a consultation with vascular surgery for the left internal carotid artery stenosis. Continue with atorvastatin. Continue medical management of hypertension. Current blood pressure seems appropriate. Avoid aggressive lowering of blood pressure. Would start clopidogrel 75 mg/day 24 hours after administration of TPA. Patient will need a transthoracic echocardiogram with bubble study as well. Consultations with PT/OT/speech therapy. History of Present Illness Reason for Consultation: stroke Requesting Physician: Torres Bonilla MD Attending Physician: Dax Finch MD History of Present Illness The patient is a 69-year-old male with a chief complaint of right upper extremity weakness that began acutely about 3 hours prior to arrival in the emergency department. He was noted to have poor housekeeping lead strength for the right hand as well as some clumsiness or poorly controlled movement of the right arm in general. His speech was felt to be somewhat dysarthric as well although he has significant intellectual disability at baseline and who is uncertain if his speech character was significantly altered. He did seem to have some difficulty following instructions and commands as well during his initial assessment. His presentation was concerning for an acute stroke localizing to the left cerebral hemisphere. A tele-stroke consultation was obtained and he was subsequently administered TPA. The patient continues to display some right upper extremity weakness this morning, notably affecting the right hand. He has some cognitive difficulty as well although he has been generally felt to be back to his baseline in this regard. Past medical history notable for diabetes mellitus, hypertension, and hyperlipidemia. He takes a daily low-dose aspirin, antihypertensive, and statin. Additional details as below. Family history noncontributory Allergies Allergy/AdvReac Type Severity Reaction Status Date / Time No Known Allergies Allergy Verified 05/18/19 11:09 Home Medications Home Medications Medication Instructions Recorded Confirmed Type aspirin 81 mg PO PM 11/13/18 05/18/19 History glimepiride 2 mg PO PM 11/13/18 05/18/19 History lovastatin 20 mg PO PM 11/13/18 05/18/19 History sitagliptin [Januvia] 100 mg PO PM 11/13/18 05/18/19 History metformin ER 500 mg 2,000 mg PO DAILY tab 05/14/19 05/18/19 History tablet,extended release 24 hr benzonatate 200 mg capsule 200 mg PO TID PRN #30 cap 05/18/19 05/18/19 Rx acetaminophen 500 mg tablet 1,000 mg PO PM 06/25/19 History triamterene 37.5 1 tab PO QAM tab 06/25/19 History mg-hydrochlorothiazide 25 mg tablet Patient History Medical History History of small bowel obstruction (Resolved) Mentally challenged (Chronic) Diabetes (Chronic) Dyslipidemia (Chronic) Hypertension (Chronic) GI bleed (Resolved) Surgical History History of cholecystectomy (Resolved) History of colonoscopy (Resolved) Social History Preferred Language: Syriac Communication Ability: Impaired Communication Ability Comment: mentally challenged/disability Machine Setter Required: No Beliefs That Will Affect Care: None Current Living Situation: Family Other Information That Helps Us Care for You: No Feels Safe at Home: Yes Safety Concerns: Feels Safe At This Time Smoking Status: Never smoker Do You Dip or Chew Tobacco: No ; Second Hand Exposure: No ; Tobacco Cessation Education Requested by Patient: No Hx Alcohol Use: No Hx Substance Use: No Review of Systems Constitutional: no fever, no chills and no fatigue Eyes: no blind spots and no diplopia Ear, Nose, Mouth, Throat: no tinnitus and no hearing loss Respiratory: no cough and no dyspnea Cardiovascular: no chest pain and no palpitations Gastrointestinal: no nausea and no vomiting Genitourinary: no dysuria and no urinary incontinence Musculoskeletal: no myalgia Integumentary: no rash and no lesions Neurologic: as per Subjective / HPI; no tremor(s), no seizure-like activity and no headache(s) Psychiatric: no depression and no anxiety Hematologic / Lymphatic: no easy bleeding and no easy bruising Physical Exam Physical Exam: The patient is a well-developed, well-nourished elderly male. He is alert and fully oriented. Recent and remote memory cannot be adequately assessed due to intellectual disabilities. Attention and concentration normal. Patient is able to name objects and repeat phrases. He is able to follow simple commands, but does so with mild difficulty. Patient seems to have a normal comprehension of vocabulary. General fund of knowledge probably limited. There appears to be an element of visual neglect with confrontation testing to the right visual field. Visual acuity normal. Pupils equal round reactive to light and accommodation. Eye movements normal. There is no ptosis, nystagmus, or ophthalmoplegia. Facial sensation intact. There is flattening of the right nasolabial fold. Hearing intact. Palate elevates to midline. Shoulder shrug intact. Tongue protrudes to midline. Sensation intact to all modalities in all 4 limbs. Patient does not extinguish to double simultaneous stimulation area deep tendon reflexes are slightly increased for the right arm and leg as compared to the left. Plantar response for the right foot equivocal, left foot downgoing. Patient exhibits dysmetria [id number] and [id number] on the right. Ophthalmoscopic examination reveals normal-appearing optic disks and posterior segments. No papilledema or hemorrhages. Carotid pulses normal bilaterally, no bruits to auscultation. Gait and station cannot be tested due to safety concerns. Evaluation of muscle strength reveals a mild to moderate right hemiparesis, right arm greater than leg, affecting the face to a subtle degree as well. Patient has more significant weakness for the right upper extremity distally with impaired housekeeping lead strength and wrist extension strength. Distal strength 2 or 3 out of 5. Strength for the remaining limbs normal. Mus nicolasa tone normal throughout. No atrophy. No abnormal movements observed. Results & Data Vital Signs (Past 12 Hours) Vital Signs Temp Pulse Pulse Resp BP BP BP 06/29/19 09:30 80 18 138/94 06/29/19 09:01 82 22 124/53 L 06/29/19 08:30 81 16 142/87 H 06/29/19 07:30 36.7 C 73 15 136/83 06/29/19 06:30 74 18 155/85 H 06/29/19 05:30 73 20 134/90 06/29/19 04:30 75 18 165/82 H 06/29/19 03:30 36.7 C 71 20 156/94 H 156/94 H 06/29/19 02:30 73 20 146/78 H 06/29/19 01:30 71 18 160/94 H 06/29/19 00:30 36.8 C 71 22 161/90 H 06/28/19 23:30 73 20 140/87 06/28/19 22:30 36.8 C 72 20 114/86 Pulse Ox 06/29/19 09:30 92 06/29/19 09:01 91 06/29/19 08:30 93 06/29/19 07:30 93 06/29/19 06:30 92 06/29/19 05:30 94 06/29/19 04:30 96 06/29/19 03:30 94 06/29/19 02:30 95 06/29/19 01:30 95 06/29/19 00:30 93 06/28/19 23:30 96 06/28/19 22:30 95 Laboratory Results WBC 6.55, hemoglobin 15.1, hematocrit 44.9, platelet count 147, sodium 138, potassium 3.6, BUN 14, creatinine 0.74, glucose 113, magnesium 2.2, transaminases normal Diagnostic Findings A CT of the head completed yesterday was negative for hemorrhage or acute process. There are nonspecific white matter hypodensities suggestive of chronic microvascular ischemic change. The ventricles are moderately enlarged. I reviewed the images as well as the radiologist interpretation of this test. CT angiography of the head and neck reveal a high-grade stenosis, greater than 90% at the origin of the left internal carotid artery. There is a radiolucency within the left posterior parietal lobe suggestive of a subacute to acute stroke in this location. I reviewed the images as well as the radiologist interpretation of this test. Electrocardiogram reveals a sinus rhythm with occasional premature supraventricular complexes. 77 bpm. (1) CVA (cerebrovascular accident) CVA mechanism: unspecified Qualified Code(s): I63.9 - Cerebral infarction, unspecified
--- NOTE | 2019-06-29 10:32 | Hospitalist Progress Note ---
Date of Service June 29, 2019 Assessment & Plan (1) CVA (cerebrovascular accident): Day 2 s/p tPA Echocardiogram without embolic cause [address] head with no hemorrhage - started on VTE prophylaxis and plavix (patient admitted while taking ASA) Suspected cause from left carotid stenosis seen on CTA Started atorvastatin 40 mg nightly p.o. (2) Carotid artery stenosis with cerebral infarction: Vascular consult pending NPO after midnight (3) Right arm weakness: As above (4) Intellectual disability: Chronic, unclear severity (5) Diabetes: Home meds - glimepiride, sitagliptin and metformin Prior to consideration of carotid endarterectomy will continue management with insulin. BSG ACHS, SSI , Glycemic control per pharmacy, A1c (6) Dyslipidemia: LDL 37 on lovastatin, started atorvastatin 40 mg p.o. nightly (7) Hypertension: Continue triamterene 37.5/hydrochlorothiazide 25 mg tablet Monitor blood pressure every 4 hours (8) DVT prophylaxis: Lovenox 40mg SQ daily Subjective Patient seen in the morning. Able to move all 4 limbs but clearly favoring left side with less co-ordination on right. Denies any pain, change in speech or hear ing. Review of Systems Review of Systems: Unobtainable due to cognitive status Physical Exam Constitutional: WD/WN, vitals as above Eyes: PERRL; sclerae not anicteric and normal pupil size Respiratory: normal respiratory effort, lungs clear to auscultation Cardiovascular: RRR, no murmur, no edema Neurologic: + focal motor deficit (generalized right upper extremity weakness) Speech / Cognition: no expressive aphasia Motor/Sensory: no tremor and no sensory deficit (difficult to assess given interlectual disability) Cranial Nerves: PERRL, EOM intact bilaterally, normal facial strength, tongue midline, able to elevate shoulders bilaterally and no nystagmus Incomplete exam as patient only able to follow simple commands Psychiatric: Orientation: alert; + not oriented x 3 Results & Data Vital Signs (Past 12 Hours) Vital Signs Temp Pulse Pulse Resp BP BP BP 06/29/19 09:30 80 18 138/94 06/29/19 09:01 82 22 124/53 L 06/29/19 08:30 81 16 142/87 H 06/29/19 07:30 98.1 F 73 15 136/83 06/29/19 06:30 74 18 155/85 H 06/29/19 05:30 73 20 134/90 06/29/19 04:30 75 18 165/82 H 06/29/19 03:30 98.1 F 71 20 156/94 H 156/94 H 06/29/19 02:30 73 20 146/78 H 06/29/19 01:30 71 18 160/94 H 06/29/19 00:30 98.2 F 71 22 161/90 H 06/28/19 23:30 73 20 140/87 Pulse Ox 06/29/19 09:30 92 06/29/19 09:01 91 06/29/19 08:30 93 06/29/19 07:30 93 06/29/19 06:30 92 06/29/19 05:30 94 06/29/19 04:30 96 06/29/19 03:30 94 06/29/19 02:30 95 06/29/19 01:30 95 06/29/19 00:30 93 06/28/19 23:30 96 PG Care Time/CCT Total # of Minutes Spent Total Time Spent with Patient: Total time spent is greater than 50% in coordination of care (as documented) at patient's floor/unit and/or counseling patient: (1) CVA (cerebrovascular accident) CVA mechanism: unspecified Qualified Code(s): I63.9 - Cerebral infarction, unspecified
[2019-06-29] MEDS ORDERED: PERFLUTREN LIPID MICROSPHERE (DEFINITY) IV ONE (11:29)
[2019-06-29 12:58] LABS: Basophils # (auto) 0.03 K/uL (0-0.2); Basophils % (auto) 0.4 %; Eosinophils % (auto) 1.3 %; Hemoglobin 15.1 g/dL (14.0-18.0); Immature Granulocytes # (auto) 0.03 K/uL (0.00-0.02); Immature Granulocytes % (auto) 0.4 %; Lymphocytes # (auto) 1.44 K/uL (1.2-3.4); Lymphocytes % (auto) 18.6 %; Mean Corpuscular Hgb Conc 34.3 g/dL (32-36); Mean Corpuscular Volume 90.3 fL (80-100); Mean Platelet Volume 10.1 fL (7.4-10.4); Monocytes # (auto) 0.57 K/uL (0.11-0.59); Monocytes % (auto) 7.4 %; Neutrophils # (auto) 5.57 K/uL (1.4-6.5); Neutrophils % (auto) 71.9 %; Platelet Count 159 K/uL (130-400); RDW Coefficient of Variation 14.7 % (11.5-14.5); RDW Standard Deviation 49.1 fL (36.4-46.3); Red Blood Count 4.87 M/uL (4.7-6.1); White Blood Count 7.74 K/uL (4.8-10.8)
[2019-06-29 13:06] LABS: Estimated Average Glucose 146 mg/dl; Hemoglobin A1C 6.7 % (4.5-5.6)
--- NOTE | 2019-06-29 13:12 | CT Scan Report ---
CT head/brain wo con CLINICAL HISTORY: 24 hour post tPA scanned. Stroke. Evaluate for hemorrhage.. COMPARISON STUDY: 06/28/2019 TECHNIQUE: Axial CT of the brain is performed from the vertex to the skull base. IV contrast was not administered for this examination. A dose lowering technique was utilized adhering to the principles of ALARA. CT DOSE: 1459.56 mGycm FINDINGS: No intra or extra-axial mass lesions are visualized. There is no CT evidence of acute cortical infarc tion. There is no evidence of midline shift. There is no acute hemorrhage. No calvarial fractures ar e visualized. Increased density at the tentorium remain stable. This likely represents tentorial calc ification. There are patchy white matter hypodensities likely on a small vessel basis. There is a more focal macario p white matter infarct within the left centrum semiovale. There is no evidence of pathologic ventricular dilatation. There is a trace right mastoid effusion. IMPRESSION: 1. No acute intracranial hemorrhage. 2. No acute intracranial findings Electronically signed by: Edmond Mei M.D. 06/29/2019 1:11 PM
[2019-06-29 13:13] LABS: INR 1.2 (0.9-1.1); Partial Thromboplastin Time 26.6 Seconds (21.0-31.0); Prothrombin Time 11.8 Seconds (9.0-12.0)
[2019-06-29 13:23] LABS: BUN Creatinine Ratio 14.8 (10-20); Calcium 9.3 mg/dl (8.5-10.1); Creatinine Clr Calc Pharmacy 105.9 ml/min; Est GFR (African American) 108.8; Est GFR (Non-African American) 93.9; Potassium 3.5 mmol/L (3.5-5.1)
--- NOTE | 2019-06-29 14:02 | Pharmacy Report ---
Pharmacy Glycemic Short Note 2 - Date of Service June 29, 2019 - Glycemic Short BSG Results (Last 24 hours): 06/28/19 06/28/19 06/29/19 16:18 20:26 07:45 Glucose POC Glucose 91 111 H 214 H 06/29/19 06/29/19 11:08 12:46 Glucose 240 H POC Glucose 196 H OUTPATIENT ANTIDIABETIC REGIMEN: * Metformin 2000mg ER daily * Glimepiride 2mg qpm * Januvia 100mg qpm ASSESSMENT: * Patient presenting with CVA well controlled on outpatient oral antidiabetic medications and required minimal insulin yesterday. Patient was mildly hyperglycemic this morning but trended back down at lunch. A weight based lantus dose between a stress level 1 and 2 was given this morning and a scale will be ordered for this evening based on BSG. The patient does appear to be tolerating a diet. PLAN FOR INPATIENT GLYCEMIC CONTROL: * Hold outpatient oral diabetes medications * Basal insulin * Lantus 10 units SQ this morning * Lantus 5,8,or 15 units this evening based on BSG (SEE MAR for details) * Bolus insulin * NovoLog per scale ACHS or Q6hrs while NPO * Goal Range: Low 110 mg/dL - High 140 mg/dL * Correction Factor: 30 mg/dL/unit * Nutritional / Prandial insulin per carb ratio of 1 unit per 10 grams CHO consumed PLAN FOR DISCHARGE: * Patient well controlled on outpatient regimen, would recommend continuing at discharge
[2019-06-29] MEDS ORDERED: ASPIRIN 81 MG ECTAB PO STA (15:14)
[2019-06-29] MEDS: CLOPIDOGREL BISULFATE 75 MG TAB PO SCH (19:35)
[2019-06-29] MEDS ORDERED: ENOXAPARIN INJ 40 MG/0.4 ML SYR SQ SCH (20:00)
[2019-06-29] MEDS: INSULIN GLARGINE SOLOSTAR 100 UNITS/ML 3 ML PEN SC SCH (20:41)
--- NOTE | 2019-06-29 23:35 | Magnetic Resonance Report ---
MRI OF THE BRAIN WITHOUT CONTRAST CLINICAL HISTORY: Possible stroke. COMPARISON STUDY: Head CT June 29, 2019. CTA of the head and head CT June 28, 2019. TECHNIQUE: Utilizing a 1.5 Sana magnet and dedicated coil, multiplanar, multiecho imaging of the bra in was performed without IV contrast. FINDINGS: This exam is moderately compromised by motion artifact. However, diffusion weighted sequenc e demonstrates multifocal acute infarcts within the left parietal lobe and posterior aspect of the le ft frontal lobe. There is no mass effect or no hemorrhage is identified. Ventricular dilatation is un changed. The basilar cisterns are patent. There are no extra axial collections. Flow-voids within the right mastoid air cells is noted. There is a suspected additional old infarct within the left pariet al lobe. IMPRESSION: 1. Multifocal small acute infarcts within the left parietal and posterior left frontal lobes. No mass effect. No hemorrhage. 2. Exam moderately compromised by motion artifact. 3. Old left parietal infarct. Electronically signed by: Lamont Wilson M.D. 06/29/2019 11:34 PM
[2019-06-30 06:05] LABS: Basophils # (auto) 0.02 K/uL (0-0.2); Basophils % (auto) 0.3 %; Eosinophils % (auto) 3.2 %; Hematocrit (blood only) 44.7 % (42-52); Immature Granulocytes # (auto) 0.02 K/uL (0.00-0.02); Immature Granulocytes % (auto) 0.3 %; Lymphocytes % (auto) 23.7 %; Mean Corpuscular Hgb Conc 33.6 g/dL (32-36); Mean Corpuscular Volume 89.4 fL (80-100); Monocytes # (auto) 0.74 K/uL (0.11-0.59); Monocytes % (auto) 11.7 %; Neutrophils # (auto) 3.86 K/uL (1.4-6.5); Neutrophils % (auto) 60.8 %; Platelet Count 152 K/uL (130-400); RDW Coefficient of Variation 14.9 % (11.5-14.5); RDW Standard Deviation 48.5 fL (36.4-46.3); White Blood Count 6.34 K/uL (4.8-10.8)
[2019-06-30 06:19] LABS: INR 1.1 (0.9-1.1); Partial Thromboplastin Time 26.8 Seconds (21.0-31.0); Prothrombin Time 11.5 Seconds (9.0-12.0)
[2019-06-30 06:40] LABS: BUN Creatinine Ratio 17.9 (10-20); Calcium 9.3 mg/dl (8.5-10.1); Creatinine Clr Calc Pharmacy 98.7 ml/min; Est GFR (Non-African American) 94.9; Potassium 3.3 mmol/L (3.5-5.1)
[2019-06-30 07:03] LABS: Estimated Average Glucose 146 mg/dl; Hemoglobin A1C 6.7 % (4.5-5.6)
[2019-06-30] MEDS ORDERED: POTASSIUM CHLORIDE 20 MEQ TABCR PO STA ×2 (08:21→15:34)
[2019-06-30] MEDS: INSULIN ASPART 100 UNITS/ML 3 ML PEN SC SCH ×2 (08:33→12:19)
[2019-06-30] MEDS: TRIAMTERENE/HCTZ 37.5/25MG TAB PO SCH (08:35)
[2019-06-30] MEDS: ATORVASTATIN 40 MG TAB PO SCH (08:35)
[2019-06-30] MEDS: CLOPIDOGREL BISULFATE 75 MG TAB PO SCH (08:35)
--- NOTE | 2019-06-30 09:30 | Consultation ---
Date of Consultation June 30, 2019 Assessment & Plan (1) Carotid artery stenosis with cerebral infarction: Pt with severe L ICA stenosis of 90% by CTA, and acute L hemispheric CVA with residual R hand deficit after tPA. Pt discussed with Dr Figueredo, recommends L CEA in next 2 weeks or so. WIll see in office next week with his POA, Gene. Discussed with Gene by phon as well, he is agreeable. Please call if needed otherwise. Present on Admission?: Yes History of Present Illness Reason for Consultation: L CVA, LICAS Attending Physician: Dax Finch MD History of Present Illness 69 yo m with hx of severe intellectual disability, HTN, DMII, and dyslipiemia, admitted with acute L hemispheric CVA, seen in consultation today for LICAS of 90%. Pt also underwent tPA administration. Pt unable to give meaningful hx d/t mental disability, so most hx obtained from prior notes and brother, Gene, who is POA. Pt apparently was in normal state of health until sx began, which included R arm weakness and worse than normal speech deficiency. Per chart, pt's R arm weakness remains despite tPA admin, but is improved from presentation. No prior hx of CVA. NECK CTA demonstrates severe stenosis of LICA, 90%. BRAIN MRI demonstrates small L lacunar and posterior frontal lobe infarcts. Allergies Allergy/AdvReac Type Severity Reaction Status Date / Time No Known Allergies Allergy Verified 05/18/19 11:09 Home Medications Home Medications Medication Instructions Recorded Confirmed Type aspirin 81 mg PO PM 11/13/18 05/18/19 History glimepiride 2 mg PO PM 11/13/18 05/18/19 History lovastatin 20 mg PO PM 11/13/18 05/18/19 History sitagliptin [Januvia] 100 mg PO PM 11/13/18 05/18/19 History metformin ER 500 mg 2,000 mg PO DAILY tab 05/14/19 05/18/19 History tablet,extended release 24 hr benzonatate 200 mg capsule 200 mg PO TID PRN #30 cap 05/18/19 05/18/19 Rx acetaminophen 500 mg tablet 1,000 mg PO PM 06/25/19 History triamterene 37.5 1 tab PO QAM tab 06/25/19 History mg-hydrochlorothiazide 25 mg tablet Patient History Medical History History of small bowel obstruction (Resolved) Mentally challenged (Chronic) Diabetes (Chronic) Dyslipidemia (Chronic) Hypertension (Chronic) GI bleed (Resolved) Surgical History History of cholecystectomy (Resolved) History of colonoscopy (Resolved) Social History Preferred Language: [place] Citizen Communication Ability: Impaired Communication Ability Comment: mentally challenged/disability Hand Trimmer Required: No Beliefs That Will Affect Care: None Current Living Situation: Family Other Information That Helps Us Care for You: No Feels Safe at Home: Yes Safety Concerns: Feels Safe At This Time Smoking Status: Never smoker Do You Dip or Chew Tobacco: No ; Second Hand Exposure: No ; Tobacco Cessation Education Requested by Patient: No Hx Alcohol Use: No Hx Substance Use: No Review of Systems Review of Systems: Unobtainable due to mental health condition and Unobtainable due to cognitive status Physical Exam Constitutional: WD/WN, vitals as above well developed, well nourished, + obese, healthy appearing, + disheveled and comfortable; not in distress and not combative Eyes: PERRL, conjunctivae normal, anicteric sclerae ENMT: external ear and nose normal, oropharynx normal Ears: no hearing impairment Nose: no nasal discharge Neck: no tracheal deviation, no neck crepitus and neck nontender Respiratory: normal respiratory effort, lungs clear to auscultation does not use accessory muscles and no cough Auscultation: lungs clear to auscultation bilaterally and + diminished lung sounds; no rhonchi and no wheezes Cardiovascular: Rate/Rhythm: regular rate and regular rhythm Heart Sounds: no gallop and no murmur Vessels: + carotid bruit, femoral pulses present, posterior tibial pulses present, dorsalis pedis pulses present, brachial pulses present and radial pulses present; no femoral bruit and + abnormal peripheral pulses Extremities: normal capillary refill; no edema Gastrointestinal (Abdomen): normal bowel sounds, soft, nontender, no hepatosplenomegaly Inspection/Auscultation: abdomen normal to inspection and normal bowel sounds; abdomen not distended Percussion/Palpation: abdomen soft; abdomen nontender, no guarding, abdomen not rigid and no abdominal mass Musculoskeletal: Head/Neck/Chest: normocephalic, head atraumatic and neck supple Extremities: extremities normal to inspection; + abnormal strength (R hand/arm 1/5, other ext 5/5) Skin: no rashes, warm and dry normal turgor; no lesions, no ulcers, no induration, no erythema, no eschar, no excoriations and no mottling Neurologic: moves all extremities, + focal motor deficit (R arm/hand weakness), awake and + confused Speech / Cognition: + abnormal speech (slow, d/t disability) and + abnormal cognition; no receptive aphasia Motor/Sensory: + pronator drift (r arm); no tremor Cranial Nerves: normal facial strength and tongue midline Psychiatric: Orientation: alert, oriented to person and oriented to place Apperance: appropriately dressed and appeared stated age Affect: + anxious affect, + tearful affect and + labile affect Thought Process: + thought process not goal directed, + thought process not linear or logical and + thought process not clear or coherent Results & Data Vital Signs (Past 12 Hours) Vital Signs Temp Pulse Resp BP Pulse Ox 06/30/19 07:05 36.4 C L 72 15 146/84 H 96 06/30/19 02:40 36.7 C 78 22 125/62 94 06/29/19 23:41 36.4 C L 72 20 116/77 94
--- NOTE | 2019-06-30 09:37 | Neurology Progress Note ---
Date of Service June 30, 2019 Assessment & Plan (1) CVA (cerebrovascular accident): Posterior left hemispheric multifocal infarct resulting in a right hemiparesis, distal right upper extremity and flattening of the right nasolabial fold, relatively sparing the right leg. He has some associated visual neglect to the right and perhaps an element of receptive aphasia. Significant intellectual disability at baseline makes cognitive assessment somewhat difficult, however. Patient should continue with clopidogrel, atorvastatin, and his antihypertensive therapy. Ongoing management of diabetes mellitus will also be important for secondary stroke risk reduction. See discussion below re garding the 90% left ICA stenosis as well. (2) Carotid artery stenosis with cerebral infarction: 90% stenosis at the origin of the left internal carotid artery, likely symptomatic, resulting in a multifocal appearing posterior left MCA territory infarct as described above. Case discussed with vascular surgery service this morning. Given acuity of stroke and residual neurological deficit, plan for surgical treatment/carotid endarterectomy probably within the next 2 to 3 weeks. Patient will have additional follow-up with Dr. Menchaca. See above discussion regarding medical management. Subjective Follow-up for stroke The patient is a 69-year-old male who presented with a right hemiparesis primarily affecting the distal right upper extremity with an element of speech/language dysfunction and suspected right visual neglect as well. He has a history of intellectual disabilities which confounded his cognitive assessment to a degree. Given that his presentation was highly suggestive of an acute left hemispheric infarct, he was administered TPA in the emergency department after a tele-stroke consultation. His cognitive functioning seems to have returned to baseline although he continues to exhibit significant distal weakness of the right upper extremity with some flattening of the right nasolabial fold. Follow-up imaging has revealed a 90% stenosis at the origin of the left internal carotid artery as an acute, multifocal infarct within the left parietal and posterior left frontal lobes. A transthoracic echocardiogram revealed some apical akinesia with an ejection fraction of 50 to 55%. No right to left shunt. No atrial fibrillation identified. History of diabetes and dyslipidemia on medication. Patient have been taking daily aspirin. Antiplatelet therapy switch to clopidogrel 24 hours after administration of TPA. Vascular surgery has been consulted regarding the above ICA stenosis. Plan for endarterectomy probably in 2 to 3 weeks. Review of Systems Constitutional: no fever Cardiovascular: no chest pain and no palpitations Neurologic: as per Subjective / HPI, + localized weakness, + lack of coordination and + confusion; no tremor(s), no seizure-like activity and no headache(s) Physical Exam Physical Exam: The patient is alert and oriented to person and hospital only. He is attentive. He is able to name objects but does have difficulty repeating phrases. Comprehension of vocabulary intact although general fund of knowledge limited. Visual jaquez grossly full to confrontation although there is an element of right hemifield neglect with confrontation testing. Pupils equal round reactive to light and accommodation. Eye movements normal. No ptosis, nystagmus, or ophthalmoplegia. Facial sensation intact. There is flattening of the right nasolabial fold. Hearing intact. Palate elevates to midline. Shoulder shrug intact. Tongue protrudes to midline. There is moderate to severe distal weakness for the right upper extremity. Patient unable to open the hand or extend the fingers to command. Tends to hold the right hand in a somewhat flexed posture. Minimal spontaneous movement of the hand. Patient has limited ability to lift the right upper extremity out of bed against gravity. Movements are grossly incoordinated or dysmetria for the right upper limb. Strength for the remaining limbs is intact. Results & Data Vital Signs (Past 12 Hours) Vital Signs Temp Pulse Resp BP Pulse Ox 06/30/19 07:05 36.4 C L 72 15 146/84 H 96 06/30/19 02:40 36.7 C 78 22 125/62 94 06/29/19 23:41 36.4 C L 72 20 116/77 94 (1) CVA (cerebrovascular accident) CVA mechanism: unspecified Qualified Code(s): I63.9 - Cerebral infarction, unspecified
[2019-06-30] MEDS: INSULIN GLARGINE SOLOSTAR 100 UNITS/ML 3 ML PEN SC SCH (09:58)
[2019-06-30] MEDS ORDERED: STROKE PATIENT DISCHARGE STA (15:31)
--- NOTE | 2019-06-30 15:43 | Discharge Summary ---
Date of Service June 30, 2019 Admission HPI Per Admitting Provider Patient is a 69 years old male with past medical history of mental retardation since , diabetes mellitus, dyslipidemia, hypertension, was brought to the emergency room with a concern that he cannot move his right hand since this morning 8:30 and he has CVA. Her physician called the stroke center in [facility] and they recommended to start TPA for ischemic stroke. Initial CT of the head did not define acute intracranial abnormality. There are visible areas of hypodensity that are nonspecific but suggestive of microvascular ischemic changes seen on the head CT without contrast. Patient is poor historian and review of system is is difficult. Brother who was sitting next to patient bedside states that patient did not have headache chills fever chest pain, shortness of breath, syncope, near syncope, fall, hematemesis, hematuria, dysuria, hemoptysis, nausea, vomiting. There is no change in bowel movements. Labs are reviewed: WBC 6.55, hemoglobin 15.1, hematocrit 44.9, platelets 147, PT 11.5, INR 1.1, APTT 26.5, sodium 138, potassium 3.6, chloride 102, BUN 14, creatinine 95.4, glucose 113, hemoglobin A1c pending, troponin -0 0.015, AST 17, ALT 29, magnesium 2.2 bilirubin 1.1. Urine all negative. Decision was made to admit patient to the ICU for further treatment and management of acute stroke. Admission Exam Per Admitting Provider Constitutional: WD/WN, vitals as above well developed and + obese Eyes: PERRL, conjunctivae normal, anicteric sclerae ENMT: external ear and nose normal, oropharynx normal Neck: trachea midline, no thyromegaly Respiratory: normal respiratory effort, lungs clear to auscultation Cardiovascular: RRR, no murmur, no edema Chest (Breasts): normal inspection/palpation of breasts Gastrointestinal (Abdomen): normal bowel sounds, soft, nontender, no hepatosplenomegaly Musculoskeletal: Right upper extremity weakness 2 of 5. Poor coordination. Patient is having mental disability and difficult to follow the instructions. Skin: no rashes, warm and dry Neurologic: patellar DTR's 2+ bilat, sensation intact Psychiatric: Patient with severe mental disability, nonverbal, unable to follow the instructions nor transferred to questions. 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) Speech / Cognition: no expressive aphasia Motor/Sensory: no tremor and no sensory deficit (difficult to assess given interlectual disability) Cranial Nerves: PERRL, EOM intact bilaterally, normal facial strength, tongue midline, able to elevate shoulders bilaterally and no nystagmus Psychiatric Orientation: alert; + not oriented x 3 Discharge Data Allergies Allergy/AdvReac Type Severity Reaction Status Date / Time No Known Allergies Allergy Verified 05/18/19 11:09 Consultations 06/28/19 12:43 ED Decision to Admit Stat 06/28/19 16:02 Consult Case Management - Discharge Planning Routine Consult Neurology Routine 06/29/19 10:31 Consult Vascular Surgery Routine Ordered Studies 06/28/19 11:41 CT head/brain wo con Stat 06/28/19 16:02 CT angio head w con Routine CT angio neck with con Routine US venous doppler LE BI Stat 06/29/19 10:31 MR brain wo con Routine 06/29/19 13:02 CT head/brain wo con Urgent Hospital Course (1) CVA (cerebrovascular accident): CVA with right hemiparesis, distal right upper extremity and flattening of the right nasolabial fold, relatively sparing the right leg. He has some associa diane visual neglect to the right and perhaps an element of receptive aphasia. Treated with tPA in the ER. Echocardiogram without embolic cause [address] head with no hemorrhage Suspected cause from left carotid stenosis seen on CTA and will follow up with vascular surgery Started atorvastatin 40 mg nightly p.o. ASA switched to plavix (2) Carotid artery stenosis with cerebral infarction: Reviewed by vascular surgery as an inpatient and recommended outpatient follow up for discussion regarding carotid endarterectomy. (3) Intellectual disability: Chronic, unclear severity (4) Diabetes: Home meds - glimepiride, sitagliptin and metformin. Continue as appears well controlled on this regimen. (5) Dyslipidemia: LDL 37 on lovastatin, started atorvastatin 40 mg p.o. nightly (6) Hypertension: Continue triamterene 37.5/hydrochlorothiazide 25 mg tablet Appears well controlled on current regimen. Total Time Total Time Spent Total Time Spent (In Minutes): 50 Total Time Includes: Examination of the Patient, Discharge Planning, Medication Reconciliation and Communication With Other Providers Discharge Plan Discharge Items Patient Disposition: Transfer Inpatient Rehab Fac Reason For Visit: STROKE, DEIRDRE ON RIGHT ARM Discharge Diagnosis: Cerebrovascular accident Carotid artery stenosis with cerebral infarction Type 2 diabetes mellitus Condition on Discharge: Good Activity: Resume your previous activity Non-emergency contact: Primary Care Provider and Neurologist Call non-emergency contact if: you have any medication questions and your symptoms worsen Follow-up/Referrals: Renzo Patten MD [Primary Care Provider] - Wicho Owens MD [Physician] - (within 4 weeks) Henry Menchaca MD [Physician] - (Approx 1 week) Diet: Carb Consistent or DM2 Addtl Attending Provider Instructions: Shankar Bella is a 69-year-old male with intellectual disability. Presented to the ER with right-sided weakness, especially his right wrist. CT head negative. Discussed with telestroke neurology and recommendation for alteplase which was given. Subsequent imaging confirmed posterior left hemispheric multifocal infarct resulting in a right hemiparesis, distal right upper extremity and flattening of the right nasolabial fold, relatively sparing the right leg. He has some associated visual neglect to the right and perhaps an element of receptive aphasia. Neck CTA showed 90% carotid artery stenosis as likely cause of the stroke - reviewed by vascular surgery and plan for vascular endarterectomy probably within 2-3 weeks (outpatient appointment in approx 1 week). His aspirin was switched to clopidogrel which he is to continue indefinitely and lovastatin switched to higher intensity atorvastatin although LDL already low. His diabetes appears adequately controlled on current medications therefore no changes were made. No new diet changes recommend by speech and language therapy. Pending Studies at Discharge: No Stand-Alone Forms: My [facility] [employer] Items Patient informed of condition?: Yes DNR: No Discharge Level of Care: Acute rehab Communicable Disease: No Discharge Prognosis: Improving Lines: None Urinary Catheter: No Medications and DC Order Prescriptions: New clopidogrel 75 mg Tablet 75 mg PO QAM Qty: 30 RF: 0 atorvastatin 40 mg Tablet 40 mg PO QAM Qty: 30 RF: 0 Continued triamterene-hydrochlorothiazid 37.5-25 mg tablet 1 tab PO QAM RF: 0 acetaminophen [Tylenol Extra Strength] 500 mg tablet 1,000 mg PO PM RF: 0 metformin 500 mg tablet extended release 24 hr 2,000 mg PO DAILY RF: 0 benzonatate 200 mg capsule 200 mg PO TID PRN (Reason: cough) Qty: 30 RF: 1 glimepiride 2 mg tablet 2 mg PO PM RF: 0 sitagliptin 100 mg tablet 100 mg PO PM RF: 0 Discontinued aspirin 81 mg Tablet,Delayed Release (Dr/Ec) 81 mg PO PM RF: 0 lovastatin 20 mg tablet 20 mg PO PM RF: 0 No Action FreeStyle Lite Strips strip .ROUTE .MEDSUPPLY Qty: 50 RF: 5 Discharge Orders: Discharge Order (Routine); Ordered 06/30/19 Ordered By: Dax Mcclure/Other Patient Handouts: Stroke Sx, Stroke Ischemic, Stroke Taking Meds, Stroke Self Care, Stroke Carotid Artery, Stroke Dc, Stroke Risk Factors Admission Data Admit Date/Time: 06/28/19 13:52 Attending Provider: Dax Finch Admit Provider: Torres Bonilla Primary Care Provider: Renzo Patten Other Providers: Jona Swanson ; Davi Bai ; Wicho Owens ; Jannet Laws ; Henry Menchaca Other Interventions: Discharge Summary Assessment (RN) Last Done: 06/30/19 18:57 DC Date/Time DO NOT enter until pt leaves facility: 06/30/19 19:00
== END 2019-06-30 19:00 | DRG 62 ==
LOC: ED 11:30 → SUATTDRO 13:52 → 1E 13:52 → 2E 06-29 15:17

== ENCOUNTER 2019-07-21 07:26 | Inpatient (IN) ==
--- NOTE | 2019-07-09 15:58 | PAT Medication Instructions ---
Medication Instructions Date of Service July 09, 2019 Home Medications Medication Instructions Recorded benzonatate 200 mg capsule 200 mg PO TID PRN #30 cap 05/18/19 atorvastatin 40 mg PO QAM #30 tab 06/30/19 clopidogrel 75 mg PO QAM #30 tab 06/30/19 blood sugar diagnostic strips #50 ea 07/05/19 glimepiride 2 mg PO PM sitagliptin 100 mg PO PM metformin ER 500 mg tablet,extended release 24 hr 2,000 mg PO DAILY benzonatate 200 mg capsule 200 mg PO TID PRN acetaminophen 500 mg tablet 1,000 mg PO PM triamterene 37.5 mg-hydrochlorothiazide 25 mg tablet 1 tab PO QAM atorvastatin 40 mg PO QAM clopidogrel 75 mg PO QAM ASK your prescriber and surgeon clopidogrel 75 mg PO QAM DO NOT take the morning of surgery metformin ER 500 mg tablet,extended release 24 hr 2,000 mg PO DAILY benzonatate 200 mg capsule 200 mg PO TID PRN triamterene 37.5 mg-hydrochlorothiazide 25 mg tablet 1 tab PO QAM Take morning of surgery With a small sip of water, OTHERWISE NOTHING TO EAT OR DRINK AFTER MIDNIGHT: atorvastatin 40 mg PO QAM Take evening before surgery glimepiride 2 mg PO PM sitagliptin 100 mg PO PM benzonatate 200 mg capsule 200 mg PO TID PRN (if needed) acetaminophen 500 mg tablet 1,000 mg PO PM Other Notes If you have any questions please call us at [phone] or [phone] or [phone] or [phone]
--- NOTE | 2019-07-12 10:29 | Anesthesiology Consultation ---
Date of Service July 12, 2019 Assessment & Plan (1) Encounter for pre-operative examination: - S/P CVA: 06/28/19: Posterior left hemispheric multifocal infarct s/p tPA ([facility])- right sided residual deficit- on plavix. Found to have significant carotid artery disease in workup for this (reason for upcoming procedure) - Intellectual disability: since (no definitive diagnosis). Patient resides at [facility])- brother (Gene) is POA and will be present AM DOS. - Plavix instructions: per surgeon/prescriber - Check BSG AM DOS Chart Review Chart Review: Pending: Refer to Additional Notes / Consult section (pending preop testing (labs, EKG, CXR)) and Patient seen in Pre Admission Testing Teaching & Discussion Pre-Anesthesia Teaching/Discussion Notes: Instructed NPO after midnight before surgery,except medications with 15 cc of water. Medication instructions provided according to the PAT guidelines. History Surgery Operation Date: 07/21/19 10:35 Proposed Procedures p Left Carotid Endarterectomy - Henry Menchaca MD Height/Weight Height: 5 ft 10 in Weight: 88.81 kg (weight per senior care 07/07; patient unable to follow commands to obtain standing weight at PAT visit) Allergies Allergy/AdvReac Type Severity Reaction Status Date / Time No Known Allergies Allergy Verified 07/09/19 14:30 Medications Home Medications Medication Instructions Recorded Confirmed Last Taken glimepiride 2 mg PO PM 11/13/18 07/12/19 11/12/18 sitagliptin 100 mg PO PM 11/13/18 07/12/19 11/12/18 metformin ER 500 mg 2,000 mg PO DAILY tab 05/14/19 07/12/19 Unknown tablet,extended release 24 hr benzonatate 200 mg capsule 200 mg PO TID PRN #30 cap 05/18/19 07/12/19 Unknown acetaminophen 500 mg tablet 1,000 mg PO PM 06/25/19 07/12/19 Unknown triamterene 37.5 1 tab PO QAM tab 06/25/19 07/12/19 Unknown mg-hydrochlorothiazide 25 mg tablet atorvastatin 40 mg PO QAM #30 tab 06/30/19 07/12/19 Unknown clopidogrel 75 mg PO QAM #30 tab 06/30/19 07/12/19 Unknown blood sugar diagnostic strips #50 ea 07/05/19 07/12/19 Unknown Past Medical History Medical History Carotid artery stenosis with cerebral infarction CVA (cerebrovascular accident) 06/28/19: Posterior left hemispheric multifocal infarct s/p tPA ([facility])- right sided residual deficit- on plavix Intellectual disability resides at [facility])- brother (Gene) is POA and will be present AM DOS History of small bowel obstruction Diabetes NIDDM Dyslipidemia Hypertension Exercise / Class Metabolic Activity III < 4 Walking/Shop/Light housework (walked with walker prior to CVA 06/28/19- right sided weakness; now using wheelchair since recent stroke) Past Surgical History Surgical History History of cholecystectomy History of colonoscopy Past Anesthesia History No Hx of Anesthesia Complications and No Family Hx of Anesthesia Complications History of PONV No Hx of PONV and No Hx of Motion Sickness Social History Smoking Status: Never smoker Do You Dip or Chew Tobacco: No Hx Alcohol Use: No Hx Substance Use: No substance use type: does not use Review of Systems Inform obtained from brother (Gene)- patient's POA: Patient does not appear to have chest pain, shortness of breath, cough, wheezing, palpitations. Physical Exam Vital Signs VITALS BP 116/77 P 89 TEMP Unable to obtain due to patient inability to follow commands SP02 97%RA RESP 16 PHYSICAL Full neck and c-spine range of motion. Full TMJ range of motion. TMD 3 finger breaths Mallampati Score 2 Dentition: poor dentition Lungs: clear throughout to auscultation Cardiac: regular rate and rhythm, no murmurs noted Spine: normal Carotid arteries: negative bruit Extremities: no edema Testing Laboratory Results 06/30/19 HGBA1C 6.7% Echocardiogram Date: 06/29/19 EF 50-55%. Apical akinesis. Mild to moderate cLVH. No visualized apical thrombus. No significant valvular abnormalities. Other Testing Neck/Brain CTA: 06/28/19: Question focal loss of alcantar-white matter differentiation is the left posterior parietal lobe. A focus of acute to subacute ischemia is not excluded. Consider MRI for further assessment. Unremarkable CT angiogram of the brain. There is high-grade stenosis (greater than 90%) at the origin of the left internal carotid artery. The remainder of the left internal carotid artery is patent. There is also high-grade stenosis at the origin of the left external carotid artery. The right carotid arterial system and the vertebral arteries are patent.
--- NOTE | 2019-07-12 11:43 | XRay Report ---
XR chest Pre-admission PA/Lat CLINICAL HISTORY: pat preoperative evaluation COMPARISON STUDY: 02/11/2019 FINDINGS: Diminished inspiratory volumes. Lungs are considered clear. Minimal atelectasis left base. IMPRESSION: Minimal atelectasis left base. Otherwise negative chest. The above report was generated using voice recognition software. It may contain grammatical, syntax or spelling errors. Electronically signed by: Julio Gonzalez M.D. 07/12/2019 11:42 AM
[2019-07-12 12:53] LABS: Basophils # (auto) 0.04 K/uL (0-0.2); Basophils % (auto) 0.5 %; Eosinophils # (auto) 0.16 K/uL (0-0.5); Eosinophils % (auto) 2.2 %; Hematocrit (blood only) 45.4 % (42-52); Hemoglobin 15.5 g/dL (14.0-18.0); Immature Granulocytes # (auto) 0.08 K/uL (0.00-0.02); Immature Granulocytes % (auto) 1.1 %; Lymphocytes # (auto) 1.27 K/uL (1.2-3.4); Lymphocytes % (auto) 17.2 %; Mean Corpuscular Hemoglobin 30.4 pg (25-34); Mean Corpuscular Hgb Conc 34.1 g/dL (32-36); Mean Platelet Volume 10.4 fL (7.4-10.4); Monocytes # (auto) 0.69 K/uL (0.11-0.59); Monocytes % (auto) 9.3 %; Neutrophils # (auto) 5.15 K/uL (1.4-6.5); Neutrophils % (auto) 69.7 %; Platelet Count 172 K/uL (130-400); RDW Coefficient of Variation 14.2 % (11.5-14.5); RDW Standard Deviation 46.6 fL (36.4-46.3); White Blood Count 7.39 K/uL (4.8-10.8)
[2019-07-12 13:02] LABS: INR 1.1 (0.9-1.1); Partial Thromboplastin Time 26.8 Seconds (21.0-31.0); Prothrombin Time 11.4 Seconds (9.0-12.0)
[2019-07-12 13:07] LABS: BUN Creatinine Ratio 18.1 (10-20); Calcium 9.8 mg/dl (8.5-10.1); Creatinine Clr Calc Pharmacy 99.3 ml/min; Est GFR (African American) 106.6; Potassium 3.8 mmol/L (3.5-5.1)
--- NOTE | 2019-07-21 06:55 | History & Physical Report ---
Date of Service July 21, 2019 History of Present Illness Primary Care Provider: Renzo Patten MD June 30, 2019 Assessment & Plan (1) Carotid artery stenosis with cerebral infarction: Pt with severe L ICA stenosis of 90% by CTA, and acute L hemispheric CVA with residual R hand deficit after tPA. Pt discussed with Dr Figueredo, recommends L CEA in next 2 weeks or so. WIll see in office next week with his POA, Gene. Discussed with Gene by phon as well, he is agreeable. Please call if needed otherwise. Present on Admission?: Yes History of Present Illness Reason for Consultation: L CVA, LICAS Attending Physician: Dax Finch MD History of Present Illness 69 yo m with hx of severe intellectual disability, HTN, DMII, and dyslipiemia, admitted with acute L hemispheric CVA, seen in consultation today for LICAS of 90%. Pt also underwent tPA administration. Pt unable to give meaningful hx d/t mental disability, so most hx obtained from prior notes and brother, Gene, who is POA. Pt apparently was in normal state of health until sx began, which included R arm weakness and worse than normal speech deficiency. Per chart, pt's R arm weakness remains despite tPA admin, but is improved from presentation. No prior hx of CVA. NECK CTA demonstrates severe stenosis of LICA, 90%. BRAIN MRI demonstrates small L lacunar and posterior frontal lobe infarcts. Allergies Allergy/AdvReac Type Severity Reaction Status Date / Time No Known Allergies Allergy Verified 05/18/19 11:09 Home Medications Home Medications Medication Instructions Recorded Confirmed Type aspirin 81 mg PO PM 11/13/18 05/18/19 History glimepiride 2 mg PO PM 11/13/18 05/18/19 History lovastatin 20 mg PO PM 11/13/18 05/18/19 History sitagliptin [Januvia] 100 mg PO PM 11/13/18 05/18/19 History metformin ER 500 mg 2,000 mg PO DAILY tab 05/14/19 05/18/19 History tablet,extended release 24 hr benzonatate 200 mg capsule 200 mg PO TID PRN #30 cap 05/18/19 05/18/19 Rx acetaminophen 500 mg tablet 1,000 mg PO PM 06/25/19 History triamterene 37.5 1 tab PO QAM tab 09/27/19 History mg-hydrochlorothiazide 25 mg tablet Patient History Medical History History of small bowel obstruction (Resolved) Mentally challenged (Chronic) Diabetes (Chronic) Dyslipidemia (Chronic) Hypertension (Chronic) GI bleed (Resolved) Surgical History History of cholecystectomy (Resolved) History of colonoscopy (Resolved) Social History Preferred Language: German Communication Ability: Impaired Communication Ability Comment: mentally challenged/disability Eeg Technologist Required: No Beliefs That Will Affect Care: None Current Living Situation: Family Other Information That Helps Us Care for You: No Feels Safe at Home: Yes Safety Concerns: Feels Safe At This Time Smoking Status: Never smoker Do You Dip or Chew Tobacco: No ; Second Hand Exposure: No ; Tobacco Cessation Education Requested by Patient: No Hx Alcohol Use: No Hx Substance Use: No Review of Systems Review of Systems: Unobtainable due to mental health condition and Unobtainable due to cognitive status Physical Exam Constitutional: WD/WN, vitals as above well developed, well nourished, + obese, healthy appearing, + disheveled and comfortable; not in distress and not combative Eyes: PERRL, conjunctivae normal, anicteric sclerae ENMT: external ear and nose normal, oropharynx normal Ears: no hearing impairment Nose: no nasal discharge Neck: no tracheal deviation, no neck crepitus and neck nontender Respiratory: normal respiratory effort, lungs clear to auscultation does not use accessory muscles and no cough Auscultation: lungs clear to auscultation bilaterally and + diminished lung sounds; no rhonchi and no wheezes Cardiovascular: Rate/Rhythm: regular rate and regular rhythm Heart Sounds: no gallop and no murmur Vessels: + carotid bruit, femoral pulses present, posterior tibial pulses present, dorsalis pedis pulses present, brachial pulses present and radial pulses present; no femoral bruit and + abnormal peripheral pulses Extremities: normal capillary refill; no edema Gastrointestinal (Abdomen): normal bowel sounds, soft, nontender, no hepatosplenomegaly Inspection/Auscultation: abdomen normal to inspection and normal bowel sounds; abdomen not distended Percussion/Palpation: abdomen soft; abdomen nontender, no guarding, abdomen not rigid and no abdominal mass Musculoskeletal: Head/Neck/Chest: normocephalic, head atraumatic and neck supple Extremities: extremities normal to inspection; + abnormal strength (R hand/arm 1/5, other ext 5/5) Skin: no rashes, warm and dry normal turgor; no lesions, no ulcers, no induration, no erythema, no eschar, no excoriations and no mottling Neurologic: moves all extremities, + focal motor deficit (R arm/hand weakness), awake and + confused Speech / Cognition: + abnormal speech (slow, d/t disability) and + abnormal cognition; no receptive aphasia Motor/Sensory: + pronator drift (r arm); no tremor Cranial Nerves: normal facial strength and tongue midline Psychiatric: Orientation: alert, oriented to person and oriented to place Apperance: appropriately dressed and appeared stated age Affect: + anxious affect, + tearful affect and + labile affect Thought Process: + thought process not goal directed, + thought process not linear or logical and + thought process not clear or coherent Results & Data Vital Signs (Past 12 Hours) Vital Signs Temp Pulse Resp BP Pulse Ox 06/30/19 07:05 36.4 C L 72 15 146/84 H 96 06/30/19 02:40 36.7 C 78 22 125/62 94 06/29/19 23:41 36.4 C L 72 20 116/77 94 Signed By: <Electronically signed by Jannet Laws PA-C> 06/30/19 0930 <Electronically signed by Henry Figueredo MD> 07/02/19 1451 Created: 06/30/19 0908 The status of this report is Signed. Draft = Not yet reviewed or approved by Medical Physician. Signed = Reviewed and approved by Medical Physician Allergies Allergy/AdvReac Type Severity Reaction Status Date / Time No Known Allergies Allergy Verified 07/09/19 14:30 Home Medications Home Medications Medication Instructions Recorded Confirmed Type glimepiride 2 mg PO PM 11/13/18 07/12/19 History sitagliptin 100 mg PO PM 11/13/18 07/12/19 History metformin ER 500 mg 2,000 mg PO DAILY tab 05/14/19 07/12/19 History tablet,extended release 24 hr benzonatate 200 mg capsule 200 mg PO TID PRN #30 cap 05/18/19 07/12/19 Rx acetaminophen 500 mg tablet 1,000 mg PO PM 06/25/19 07/12/19 History triamterene 37.5 1 tab PO QAM tab 06/25/19 07/12/19 History mg-hydrochlorothiazide 25 mg tablet atorvastatin 40 mg PO QAM #30 tab 06/30/19 07/12/19 Rx clopidogrel 75 mg PO QAM #30 tab 06/30/19 07/12/19 Rx blood sugar diagnostic strips #50 ea 07/05/19 07/12/19 Rx 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 ([facility])- right sided residual deficit- on plavix Intellectual disability resides at [facility] ([place])- brother (Gene) is POA and will be present AM DOS History of small bowel obstruction Diabetes NIDDM Dyslipidemia Hypertension Surgical History History of cholecystectomy History of colonoscopy Social History Preferred Language: German Communication Ability: Effective Eeg Technologist Required: No Beliefs That Will Affect Care: None Current Living Situation: Skilled Nursing Current Living Situation Comment: [facility] Other Information That Helps Us Care for You: No Feels Safe at Home: Yes Safety Concerns: Feels Safe At This Time Smoking Status: Never smoker Do You Dip or Chew Tobacco: No ; Second Hand Exposure: No ; Tobacco Cessation Education Requested by Patient: No Hx Alcohol Use: No Hx Substance Use: No
[~2019-07-21 07:26] MED LIST changes: -BLOOD PRESSURE; -BLOOD SUGAR PO; +CEFAZOLIN 2000MG 2,000 MG/15 ML SYR IV SCH; -CHOLESTEROL; +LACTATED RINGERS 1,000 ML IV SCH; +LIDOCAINE HCL 2% 2 ML VIAL/AMP(20MG/ML) INFIL ONE; +LR 15ML/HR IV SCH; +NITROGLYCERIN 5 MG/ML 10 ML VIAL ONE; +ONDANSETRON INJ 2 MG/ML 2 ML VIAL ONE; +PROPOFOL IV EMULSION 10 MG/ML 20 ML VIAL IV ONE; +ROCURONIUM BROMIDE 10 MG/ML 5 ML VIAL ONE; +fentaNYL citrate 100 MCG/2 ML VIAL ONE
[2019-07-21] MEDS ORDERED: ePHEDrine sulfate 50 MG/ML AMP IV PRN (08:30)
[2019-07-21] MEDS ORDERED: MEPERIDINE HCL 25 MG/ML CARP IV PRN (08:30)
[2019-07-21] MEDS ORDERED: HYDROmorphone INJ 1 MG/ML SYRINGE IV PRN (08:30)
[2019-07-21] MEDS ORDERED: PHENYLEPHRINE 100MCG/ML 5ML SYR IV PRN (08:30)
[2019-07-21] MEDS ORDERED: fentaNYL citrate 100 MCG/2 ML VIAL IV PRN (08:30)
[2019-07-21] MEDS ORDERED: ONDANSETRON INJ 2 MG/ML 2 ML VIAL IV PRN ×2 (08:30→13:35)
[2019-07-21] MEDS ORDERED: LABETALOL HCL IV 5 MG/ML 20ML IV PRN (08:30)
[2019-07-21] MEDS ORDERED: ATROPINE SULFATE 0.1 MG/ML 10ML SYR IV PRN (08:30)
[2019-07-21 08:33] LABS: Potassium 3.6 mmol/L (3.5-5.1)
[2019-07-21] MEDS ORDERED: CEFAZOLIN 250 MG/ML 1 GM VIAL ONE (08:40)
[2019-07-21] MEDS ORDERED: LIDOCAINE HCL 1% 20 ML VIAL ONE (08:40)
[2019-07-21] MEDS ORDERED: BUPIVACAINE/EPINEPHRINE 0.5% MPF 1:200,000 30 ML VIAL ONE (08:40)
[2019-07-21] MEDS ORDERED: HEPARIN (PORCINE) 1000 UNIT/ML 10 ML (CATH LAB USE ONLY) ONE (08:40)
[2019-07-21] MEDS ORDERED: GELATIN SPONGE SZ 100 ONE (08:41)
[2019-07-21] MEDS ORDERED: THROMBIN FOR SOLN 20000 UNIT KIT ONE (08:41)
[2019-07-21] MEDS ORDERED: MIDAZOLAM HCL 1 MG/ML 2ML VIAL ONE (09:13)
--- NOTE | 2019-07-21 09:23 | History & Physical Bridge Note ---
Date of Service July 21, 2019 History & Physical Bridge Note I have examined the patient, reviewed the History & Physical and in the interval since the performance of the History & Physical I have noted the following changes of clinical significance: no changes noted
--- NOTE | 2019-07-21 11:57 | Post Operative Brief Note ---
Immediate Post Op Note v1 Date of Surgery July 21, 2019 Pre & Post Diagnosis Operation Date: 07/21/19 09:20 Pre-Op Diagnosis: Left Carotid Artery Stenosis, Symptomatic Post-Op Diagnosis: Left Carotid Artery Stenosis, Symptomatic I identified the patient and participated in the time-out.: Yes Procedure Operation Date: 07/21/19 09:20 Actual Procedures p Left Carotid Endarterectomy with Patch Angioplasty(Left) - Henry Menchaca MD Surgeon Henry Menchaca MD Pharmacy Ancillary MD Elizabeth L.Minarchick,PAC Estimated Blood Loss 50 Findings Consistent with Post-Op Diagnosis Anesthesia Type General Complications none Disposition Accompanied Patient To Recovery: No Disposition: Recovery Room
--- NOTE | 2019-07-21 12:02 | Operative Report ---
Post Operative Report Pre & Post Diagnosis Operation Date: 07/21/19 09:20 Pre-Op Diagnosis: Left Carotid Artery Stenosis, Symptomatic Post-Op Diagnosis: Left Carotid Artery Stenosis, Symptomatic I identified the patient and participated in the time-out.: Yes Procedure Operation Date: 07/21/19 09:20 Actual Procedures p Left Carotid Endarterectomy with Patch Angioplasty(Left) - Henry Menchaca MD Surgeon MD Dr. Bernarda King Cyanide Case Hardener Jannet Laws Estimated Blood Loss 50 Findings See Below Patient had a severely stenotic calcified and intraplaque hemorrhage. Fluids 1100 cc cryst Specimens Left carotid artery plaque Drains None Anesthesia Type General Complications none Disposition Accompanied Patient To Recovery: Yes Disposition: Recovery Room Indications Symptomatic left carotid artery stenosis. Description of Procedure The patient was brought to the operating room and identified correctly, where an arterial line was placed and general anesthesia was secured. The left neck was prepped and sterilely draped. An oblique incision was made along the anterior border of the right sternocleidomastoid muscle. The platysma was divided and dissection was carried down to the carotid sheath. The facial vein was doubly ligated and divided exposing the carotid bifurcation. The vagus nerve , XII nerve and ansa cervicalis were identified and kept free from dissection and retraction. The internal, external, and common carotid arteries were dissected free proximally and distally. 8000 U of Heparin was given intravenously. The external carotid as well as superior thyroid vessels were encircled with vessel loops. Once the heparin was allowed to circulate for approximately 5 minutes, clamps were placed starting with the internal carotid followed by the common carotid and external carotid. An anterior arteriotomy was made on the common carotid artery using an 11 blade. Ge scissors was used to extend the arteriotomy through the plaque on to the distal soft internal carotid artery. The plaque was heavily calcified, ulcerated with intraplaque hemorrhage, and nearly occlusive. A shunt was then inserted into the into the internal carotid artery and revealed good backbleeding. The proximal end of the shunt was then inserted into the common carotid artery and secured in place. The Doppler attached to the shunt was turned on and revealed good flow through the shunt. A [place] elevator was used to create an endarterectomy plane. The proximal endpoint was created using Ge scissors as well as a distal endpoint was created with the Ge scissors. The plaque was freed out of the external carotid artery .With downward retraction on the plaque, a smooth distal endpoint was created. All debris was meticulously debrided from the inside of the lumen and confirmed with instillation of heparinized saline. Once endarterectomy was completed, a bovine pericardial patch was then cut to the appropriate size and sewn into internal carotid artery using a 6-0 Prolene sutures starting at the internal carotid artery corner of the arteriotomy. Before the patch was completed, the shunt was pulled and all the arteries were backbleed extruding any air and debris. The patch was then completed. The external carotid clamp was removed first, followed by the common carotid artery clamp, and finally the internal carotid artery clamp, restoring blood flow to the brain. Thrombin soaked gel foam was used to achieve hemostasis. Meticulous hemostasis was secured. The wound was then closed in multiple layers using 3-0 Vicryl suture then a 4-0 Vicryl subcutaneous layer closing the skin. Dermabond was applied over the incision. The patient tolerated the procedure well and was extubated on table. The patient was moving all four extremities to command prior to and upon transfer to the recovery room. Dr. Menchaca was present and scrubbed for the entirety of the procedure. I attest to the content of the Intraoperative Record and any orders documented therein. Any exceptions are noted below.
[2019-07-21] MEDS ORDERED: NEOSTIGMINE METHYLSULFATE 5 MG/5 ML SYR ONE (12:59)
[2019-07-21] MEDS ORDERED: HEPARIN SOD (PORCINE) 1000 UNIT/ML 10 ML VIAL ONE (12:59)
[2019-07-21] MEDS ORDERED: ePHEDrine sulfate 50 MG/ML AMP ONE (12:59)
[2019-07-21] MEDS ORDERED: GLYCOPYRROLATE 0.2 MG/ML VIAL ONE (12:59)
[2019-07-21] MEDS ORDERED: PHENYLEPHRINE HCL 10 MG/ML VIAL ONE (12:59)
--- NOTE | 2019-07-21 13:07 | Anesthesiology Progress Note ---
Date of Service July 21, 2019 Anesthesia Post Procedure Vital Signs Vital Signs: Temp Pulse Pulse Resp BP Pulse Ox 07/21/19 12:50 36.3 C L 69 18 113/57 L 98 07/21/19 12:40 69 18 113/57 L 98 07/21/19 12:30 82 16 106/63 98 07/21/19 12:22 36.2 C L 93 H 16 115/87 98 07/21/19 08:03 36.8 C 20 L 20 150/91 H 96 Transfer of Care Handoff Completed per policy Notes Mental Status: alert / awake / arousable Patient Amnestic to Procedure: Yes Nausea / Vomiting: adequately controlled Pain: adequately controlled Airway Patency, RR, SpO2: stable & adequate BP & HR: stable & adequate Hydration State: stable & adequate Anesthetic Complications: no major complications apparent and Pt Satisfied with anesthetic care Notes: The patient is awake and stable at baseline. He is moving all of his extremities. He will be monitored in the ICU overnight. Report was given to the ICU attending.
--- NOTE | 2019-07-21 13:12 | Critical Care Consultation ---
Date of Consultation July 21, 2019 Assessment & Plan (1) Admitted to intensive care unit: Reason critically ill: 69yo male with a PMHx significant for intellectual disability, HTN, HLD, Diabetes and recent L CVA who is being monitored after L carotid endarterectomy. NEURO: -baseline intellectual disability -However, post op will have q4 neuro checks for any deviation from baseline -Has scheduled tylenol and PRN [place] and morphine ordered per primary team for pain post-op. -Hx of L CVA in MCA region with tPa administration- continue plavix and statin -Periodically agitated-redirecting currently, can consider one-to one sitter should agitation increase. Would avoid sedatives as neuro checks necessary. CV -Has Hx of coronary artery disease, HTN, HLD CAD -had 90% stenosis of L carotid on neck CTA -s/p endarterectomy on 07/21 -will continue to monitor for post-op complications such as hematoma, breathing issues, infection, etc. HLD -continue home statin HTN -continue triamterene 37.5mg/HCTZ 25mg per primary team Pulmonary -No concerns currently -will continue to monitor post-op Renal/ -No concerns currently -No putnam GI -Diet ordered per primary team ID -no concerns currently Lines: PIV DVT prophylaxis: SCDs Dispo: ICU for monitoring post-op (2) Postop carotid endarterectomy surveillance, encounter for: (3) Hypotension (arterial): Supervising Physician Co-Signing Physician Notes Dr. Reyes was the resident-physician during care of patient. I separately evaluated patient for taylor portions of the history and the exam. I was present during the critical portion of medical decision making, and I discussed the case with the resident. I generally agree with the findings and plan except for any additions/exceptions noted. Patient has a recent history of ischemic stroke with left MCA infarct that is post TPA earlier this month. He was found to have 90% occlusion of the left carotid artery. He underwent a left carotid endarterectomy today. He appears to be very stable status post procedure. He is agitated at times and requesting to go home. He denies any pain. No chest pain, abdominal pain, nausea or vomiting. Denies dyspnea. He does have a history of significant intellectual disability. The family is available at bedside and he appears to be more comfortable when his siblings are near him. He does have a low blood pressure on the arterial waveform with systolics in the 90s. His noninvasive blood pressure does have systolics in the low 100s. The waveform on the art line does not appear to be very good at the moment. We will just continue to follow the noninvasive blood pressure. We will try to avoid any anxiolytics or sedatives in his case so as not to alter his exam findings. That being said, it is quite difficult to assess a proper neuro exam on him given that he does not want to cooperate entirely with the exam at this time. That being said there does not appear to be any significant deficits outside of his baseline per the family. Rest of care per Dr. Menchaca. I have personally spent 35 minutes of critical care time in the direct management of this patient. This is a life/limb threatening event. This includes time spent evaluating patient, direct bedside care, chart review, placing orders, interpretation of diagnostic studies, discussion with consultants, patient, and/or family members regarding treatment decisions, as well as other required patient management activities. This time is exclusive of all separately billable procedures, and teaching time and separate from and in addition to any other critical care service time. History of Present Illness Attending Physician: Henry Menchaca MD History of Present Illness Pt is a 69yo male with a PMHx significant for intellectual disability, HTN, HLD, Diabetes and recent L CVA who is being monitored in the ICU after L carotid endarterectomy on 07/21. Has a Hx of right sided symptoms secondary to the L CVA in early June. Family at bedside state that he has been having progressive return of function to his right hand since discharge. Has been at [facility] for rehab. Allergies Allergy/AdvReac Type Severity Reaction Status Date / Time No Known Allergies Allergy Verified 07/09/19 14:30 Home Medications Home Medications Medication Instructions Recorded Confirmed Type glimepiride 2 mg PO PM 11/13/18 07/21/19 History sitagliptin [Januvia] 100 mg PO PM 11/13/18 07/21/19 History metformin ER 500 mg 2,000 mg PO DAILY tab 05/14/19 07/21/19 History tablet,extended release 24 hr benzonatate 200 mg capsule 200 mg PO TID PRN #30 cap 05/18/19 07/21/19 Rx acetaminophen 500 mg tablet 1,000 mg PO PM 06/25/19 07/21/19 History triamterene 37.5 1 tab PO QAM tab 06/25/19 07/21/19 History mg-hydrochlorothiazide 25 mg tablet atorvastatin 40 mg PO QAM #30 tab 06/30/19 07/21/19 Rx clopidogrel 75 mg PO QAM #30 tab 06/30/19 07/21/19 Rx blood sugar diagnostic strips #50 ea 07/05/19 07/12/19 Rx Patient History Medical History Carotid artery stenosis with cerebral infarction CVA (cerebrovascular accident) 06/28/19: Posterior left hemispheric multifocal infarct s/p tPA ([facility])- right sided residual deficit- on plavix Intellectual disability resides at [facility] ([place])- brother (Gene) is POA and will be present AM DOS History of small bowel obstruction Diabetes NIDDM Dyslipidemia Hypertension Surgical History History of cholecystectomy History of colonoscopy Social History Preferred Language: B[place] Communication Ability: Impaired Prism Measurer Required: No Beliefs That Will Affect Care: None Current Living Situation: [facility] Current Living Situation Comment: [facility] Other Information That Helps Us Care for You: No Feels Safe at Home: Yes Safety Concerns: Feels Safe At This Time Smoking Status: Never smoker Do You Dip or Chew Tobacco: No ; Second Hand Exposure: No ; Tobacco Cessation Education Requested by Patient: No Hx Alcohol Use: No Hx Substance Use: No Review of Systems Review of Systems: Unobtainable due to mental health condition Physical Exam Physical Exam: General: Alert, agitated. Skin: Right neck wound without visible bleeding, redness. Psych: Pt is verbal, agitated, requesting discharge. Neuro: Unable to determine whether CN intact, Able to move all extremities grossly, unable to ascertain muscular strength or sensory deficits given intellectual disability and agitation. HEENT: NC/AT Chest: Nontender to palpation. CV: RRR, Normal s1, s2. No murmurs appreciated Resp: Breath sounds clear but decreased bilaterally, no increased effort of breathing. Abdomen: Soft, nontender, nondistended. No guarding. Extremities: No edema in lower extremities bilaterally. MSK: Grossly moves all extremities. Results & Data Vital Signs (Past 12 Hours) Vital Signs Temp Pulse Pulse Resp BP Pulse Ox 07/21/19 12:50 36.3 C L 69 18 113/57 L 98 07/21/19 12:40 69 18 113/57 L 98 07/21/19 12:30 82 16 106/63 98 07/21/19 12:22 36.2 C L 93 H 16 115/87 98 07/21/19 08:03 36.8 C 20 L 20 150/91 H 96 Laboratory Results Laboratory Results - last 24 hr 07/21/19 07/21/19 07/21/19 08:13 08:25 12:31 Sodium 133 L Potassium 3.6 Chloride 97 L Carbon Dioxide 28 Anion Gap 8.0 POC Glucose 124 H 132 H Nasal Screen MRSA (PCR) 07/21/19 13:45 Sodium Potassium Chloride Carbon Dioxide Anion Gap POC Glucose Nasal Screen MRSA (PCR) Pending Medications Administered Home Medications glimepiride 2 mg PO PM 11/13/18 [History Confirmed 07/21/19] sitagliptin [Januvia] 100 mg PO PM 11/13/18 [History Confirmed 07/21/19] metformin ER 500 mg tablet,extended release 24 hr 2,000 mg PO DAILY tab 05/14/19 [History Confirmed 07/21/19] benzonatate 200 mg capsule 200 mg PO TID PRN #30 cap 05/18/19 [Rx Confirmed 07/21/19] acetaminophen 500 mg tablet 1,000 mg PO PM 06/25/19 [History Confirmed 07/21/19] triamterene 37.5 mg-hydrochlorothiazide 25 mg tablet 1 tab PO QAM tab 06/25/19 [History Confirmed 07/21/19] atorvastatin 40 mg PO QAM #30 tab 06/30/19 [Rx Confirmed 07/21/19] clopidogrel 75 mg PO QAM #30 tab 06/30/19 [Rx Confirmed 07/21/19] blood sugar diagnostic strips #50 ea 07/05/19 [Rx Confirmed 07/12/19] Active Medications Acetaminophen (Tylenol) 1,000 mg PO PM RONNIE Stop: 08/20/19 20:59 Hydrocodone Bitart/Acetaminophen ([place] 5/325) 1 - 2 tab PO Q4H PRN PRN Reason: Moderate Pain Stop: 08/04/19 13:34 Last Admin: 07/21/19 14:12 Dose: 1 tab Documented by: Atorvastatin Calcium (Lipitor) 40 mg PO QAM RONNIE Stop: 08/21/19 08:59 Benzonatate (Tessalon Perle) 200 mg PO TID PRN PRN Reason: cough Stop: 08/20/19 13:34 Clopidogrel Bisulfate (Plavix) 75 mg PO QAM RONNIE Stop: 08/21/19 08:59 Dextrose (Dextrose 50%) 25 - 50 ml IV UD PRN; Protocol PRN Reason: Hypoglycemia Protocol Stop: 08/20/19 13:59 Glucagon (Glucagen) 1 mg IM UD PRN; Protocol PRN Reason: Hypoglycemia Protocol Stop: 08/20/19 13:59 Glucose (Glucose 40%) 15 - 30 gm PO UD PRN; Protocol PRN Reason: Hypoglycemia Protocol Stop: 08/20/19 13:59 Glucose (Dex4 Glucose) 4 - 8 tabs PO UD PRN; Protocol PRN Reason: Hypoglycemia Protocol Stop: 08/20/19 13:59 Cefazolin Sodium (Ancef 2000mg) 2,000 mg in 15 mls @ 2.5 mls/min IV PREOP RONNIE; Protocol Stop: 07/22/19 05:59 Last Admin: 07/21/19 09:26 Dose: 2.5 mls/min Documented by: Dextrose/Sodium Chloride (D5w And 1/2nss) 1,000 mls @ 125 mls/hr IV .Q8H RONNIE Stop: 08/20/19 13:34 Last Admin: 07/21/19 14:34 Dose: 125 mls/hr Documented by: Cefazolin Sodium (Ancef 2000mg) 2,000 mg in 15 mls @ 3.75 mls/min IV Q8H RONNIE; Protocol Stop: 07/22/19 02:03 Miscellaneous (Carbohydrates For Hypoglycemia) 15 - 30 gm PO UD PRN PRN Reason: Hypoglycemia Treatment Stop: 08/20/19 13:59 Miscellaneous Information (Consult Glycemic Management Pharmacy) 1 ea N/A UD PRN PRN Reason: Consult Stop: 08/20/19 13:42 Morphine Sulfate (Morphine Sulfate) 3 - 4 mg IV Q2H PRN PRN Reason: Severe Pain Stop: 08/04/19 13:34 Morphine Sulfate (Morphine Sulfate) 1 - 2 mg IV Q2H PRN PRN Reason: Severe Pain Stop: 08/04/19 13:44 Ondansetron HCl (Zofran) 4 mg IV ONE PRN PRN Reason: Nausea And Vomiting Triamterene/HCTZ (Maxzide 37.5/25mg) 1 tab PO QAM [facility] Stop: 08/21/19 08:59 PG Care Time/CCT Total # of Minutes Spent Total Time Spent with Patient: Total time spent is greater than 50% in coordination of care (as documented) at patient's floor/unit and/or counseling patient: Critical Care Time: Yes Total Critical Care Time: 35 Resident Activity Tracking Resident Involvement: Resident Care Provided Care Provided: Adult Hospital Medicine
[2019-07-21] MEDS ORDERED: HYDROCODONE/ACETAMOPHEN 5/325MG TAB PO PRN (13:35)
[2019-07-21] MEDS ORDERED: D5W AND 1/2NSS 1,000 ML IV SCH (13:35)
[2019-07-21] MEDS ORDERED: MoRPHine SULFATE 4 MG/ML 1 ML CARP\\VIAL IV PRN (13:35)
[2019-07-21] MEDS ORDERED: BENZONATATE 100 MG CAPSULE PO PRN (13:35)
[2019-07-21] MEDS ORDERED: PHARMACY GLYCEMIC MGMT CONSULT PRN (13:43)
[2019-07-21] MEDS ORDERED: MoRPHine SULFATE 2 MG/ML CARP IV PRN (13:45)
[2019-07-21] MEDS ORDERED: GLUCAGON FOR INJ 1 MG VIAL IM PRN (14:00)
[2019-07-21] MEDS ORDERED: GLUCOSE 10 TABS/TUBE PO PRN (14:00)
[2019-07-21] MEDS ORDERED: DEXTROSE 50% 50 ML SYRINGE IV PRN (14:00)
[2019-07-21] MEDS ORDERED: CARBOHYDRATES FOR HYPOGLYCEMIA PO PRN (14:00)
[2019-07-21] MEDS ORDERED: GLUCOSE 40% GEL 15 GM TUBE PO PRN (14:00)
[2019-07-21] MEDS: PHENYLEPHRINE HCL 20 MG in DEXTROSE 5% 500 ML IV SCH ×2 (15:13→21:58)
[2019-07-21] MEDS: SODIUM CHLORIDE 0.9% 1000ML 1,000 ML IV SCH ×2 (15:30→23:25)
--- NOTE | 2019-07-21 15:36 | Pharmacy Report ---
Glycemic Control Consultation - Date of Service July 21, 2019 - Scope Scope: Glycemic Pharmacist consulted by Dr Menchaca on 07/21 for glycemic control and to write orders per [facility] inpatient glycemic control protocol - Objective Weight: 91.1 kg Accuchecks BSG (last 24hrs): 07/21/19 07/21/19 08:25 12:31 POC Glucose 124 H 132 H Laboratory Data (last 24hrs): 07/21/19 08:13 Potassium 3.6 Carbon Dioxide 28 Anion Gap 8.0 - Recent Pertinent Medications Outpatient Anti-diabetic Regimen: * Metformin ER 2g po daily * Glimepiride 2 mg po qPM * Sitagliptin 100 mg po qPM * A1c = 6.7% 06/30/19 Risk Factors for Insulin Resistance: * Steroids: * Infection: cefazolin periop * Pressors: phenylephrine * IVF: D5NS @ 125 mL/hr changed to NS @ 125 mL/hr * Recent Surgery: POD 0 s/p carotid endarterectomy * Diet: T2DM - Assessment & Plan Assessment & Plan: ASSESSMENT: * 69 yo M with T2DM and excellent outpatient control on three oral agents. Admitted 07/21 and POD 0 s/p carotid endarterectomy 2nd recent CVA * Pt is maintained on oral antidiabetic agents as an outpatient * Oral agents are not recommended for inpatient use d/t drug interactions, changing PO intake, and difficulty titrating for acute hyper/hypoglycemia. ADA recommends re-initiating outpatient oral agents 1-2 days prior to discharge if/when appropriate if they were held on admission. * Will hold oral agents for admission and utilize SQ basal bolus insulin regimen which is the recommended regimen for inpatient glycemic control. * Will initiate weight based insulin dosing for insulin yoselyn patient and titrate based on BSG trends. PLAN FOR INPATIENT GLYCEMIC CONTROL: * Holding outpatient oral diabetes medications * Basal insulin * Lantus 16 units SQ x1 (hold if patient consumes less than 50% of dinner) * Bolus insulin * NovoLog per scale ACHS or Q6hrs while NPO * Goal Range: Low 110 mg/dL - High 140 mg/dL * Correction Factor: 25 mg/dL/unit * Nutritional / Prandial insulin per carb ratio of 1 unit per 9 grams CHO consumed * Please note that the plan above was derived based on current level of insulin resistance and hospital stress. These recommendations are appropriate for inpatient admission only. Plan of care upon discharge will need to be reassessed to avoid potential outpatient hypo/hyperglycemia. Thank you.
[2019-07-21 15:39] LABS: Basophils # (auto) 0.01 K/uL (0-0.2); Basophils % (auto) 0.1 %; Eosinophils # (auto) 0.03 K/uL (0-0.5); Eosinophils % (auto) 0.3 %; Hematocrit (blood only) 38.9 % (42-52); Hemoglobin 13.1 g/dL (14.0-18.0); Immature Granulocytes # (auto) 0.03 K/uL (0.00-0.02); Immature Granulocytes % (auto) 0.3 %; Lymphocytes # (auto) 0.93 K/uL (1.2-3.4); Lymphocytes % (auto) 7.9 %; Mean Corpuscular Hemoglobin 29.8 pg (25-34); Mean Corpuscular Hgb Conc 33.7 g/dL (32-36); Mean Corpuscular Volume 88.6 fL (80-100); Monocytes # (auto) 0.63 K/uL (0.11-0.59); Monocytes % (auto) 5.3 %; Neutrophils # (auto) 10.16 K/uL (1.4-6.5); Neutrophils % (auto) 86.1 %; Platelet Count 150 K/uL (130-400); RDW Coefficient of Variation 14.2 % (11.5-14.5); RDW Standard Deviation 46.5 fL (36.4-46.3); Red Blood Count 4.39 M/uL (4.7-6.1); White Blood Count 11.79 K/uL (4.8-10.8)
[2019-07-21] MEDS ORDERED: INFLUENZA ADMINISTRATION CHARGE ONE (15:45)
[2019-07-21] MEDS ORDERED: INFLUENZA VACCINE HIGH DOSE 65+ 0.5 ML SYR IM ONE (15:45)
[2019-07-21] MEDS ORDERED: LANTUS PER UNIT CHARGE SQ SCH ×2 (16:30)
[2019-07-21] MEDS ORDERED: LANTUS PER UNIT CHARGE SQ ONE (16:30)
[2019-07-21] MEDS: INSULIN ASPART 100 UNITS/ML 3 ML PEN SC SCH ×2 (17:49→21:01)
[2019-07-21] MEDS: CEFAZOLIN 2000MG 2,000 MG/15 ML SYR IV SCH (17:59)
[2019-07-21] MEDS: ACETAMINOPHEN 500 MG TAB PO SCH (20:52)
[2019-07-21] MEDS ORDERED: GLIMEPIRIDE 2 MG TAB PO SCH (21:00)
[2019-07-22] MEDS ORDERED: INSULIN ASPART 100 UNITS/ML 3 ML PEN SC ONE (02:00)
[2019-07-22] MEDS: CEFAZOLIN 2000MG 2,000 MG/15 ML SYR IV SCH (02:29)
[2019-07-22 04:40] LABS: Basophils # (auto) 0.01 K/uL (0-0.2); Basophils % (auto) 0.1 %; Eosinophils # (auto) 0.14 K/uL (0-0.5); Eosinophils % (auto) 1.4 %; Hematocrit (blood only) 38.3 % (42-52); Hemoglobin 12.6 g/dL (14.0-18.0); Immature Granulocytes # (auto) 0.03 K/uL (0.00-0.02); Immature Granulocytes % (auto) 0.3 %; Lymphocytes % (auto) 14.5 %; Mean Corpuscular Hemoglobin 29.6 pg (25-34); Mean Corpuscular Hgb Conc 32.9 g/dL (32-36); Mean Corpuscular Volume 90.1 fL (80-100); Mean Platelet Volume 9.4 fL (7.4-10.4); Monocytes # (auto) 1.03 K/uL (0.11-0.59); Monocytes % (auto) 10.6 %; Neutrophils # (auto) 7.07 K/uL (1.4-6.5); Neutrophils % (auto) 73.1 %; Platelet Count 161 K/uL (130-400); RDW Coefficient of Variation 14.6 % (11.5-14.5); RDW Standard Deviation 47.7 fL (36.4-46.3); Red Blood Count 4.25 M/uL (4.7-6.1); White Blood Count 9.68 K/uL (4.8-10.8)
[2019-07-22] MEDS: PHENYLEPHRINE HCL 20 MG in DEXTROSE 5% 500 ML IV SCH (04:41)
[2019-07-22 04:59] LABS: BUN Creatinine Ratio 10.4 (10-20); Creatinine Clr Calc Pharmacy 97.7 ml/min; Est GFR (African American) 107.7; Est GFR (Non-African American) 92.9; Magnesium 1.9 mg/dl (1.8-2.4); Potassium 3.5 mmol/L (3.5-5.1)
[2019-07-22 05:00] LABS: Phosphorus 2.7 mg/dl (2.5-4.9)
[2019-07-22] MEDS: SODIUM CHLORIDE 0.9% 1000ML 1,000 ML IV SCH (07:55)
[2019-07-22] MEDS: INSULIN ASPART 100 UNITS/ML 3 ML PEN SC SCH ×4 (08:02→22:09)
[2019-07-22] MEDS: CLOPIDOGREL BISULFATE 75 MG TAB PO SCH (08:03)
[2019-07-22] MEDS: ATORVASTATIN 40 MG TAB PO SCH (08:03)
--- NOTE | 2019-07-22 08:08 | Anesthesiology Progress Note ---
Date of Service July 22, 2019 Anesthesia Post Procedure Vital Signs Vital Signs: Temp Pulse Pulse Resp BP BP Pulse Ox 07/22/19 03:09 68 14 113/72 93 07/22/19 02:30 67 14 134/102 H 93 07/22/19 02:00 71 21 125/73 93 07/22/19 01:38 72 19 122/75 95 07/22/19 00:00 36.6 C 67 19 123/78 94 07/21/19 23:30 64 14 140/71 94 07/21/19 23:08 67 18 137/71 95 07/21/19 22:15 65 16 95 07/21/19 22:00 72 21 121/70 96 07/21/19 21:45 70 18 98 07/21/19 21:30 62 14 119/59 L 95 07/21/19 21:15 68 15 94 07/21/19 21:00 64 17 133/70 94 07/21/19 20:45 77 23 95 07/21/19 20:30 65 20 116/69 98 07/21/19 20:15 62 16 95 07/21/19 20:01 60 15 94/60 L 96 07/21/19 20:00 59 L 15 94 07/21/19 19:45 36.3 C L 64 15 93 07/21/19 19:31 66 19 108/70 94 07/21/19 19:30 69 19 94 07/21/19 19:15 68 17 91 07/21/19 19:00 65 22 115/69 93 07/21/19 18:47 129 H 28 H 93 07/21/19 18:46 74 17 106/65 96 07/21/19 18:45 72 19 95 07/21/19 18:30 71 11 L 121/67 94 07/21/19 18:15 76 16 112/69 91 07/21/19 18:00 71 22 109/66 96 07/21/19 17:45 76 23 116/72 97 07/21/19 17:30 79 15 124/65 07/21/19 17:15 70 20 118/79 07/21/19 17:00 65 18 123/75 07/21/19 16:45 62 15 112/73 07/21/19 16:30 64 16 123/80 97 07/21/19 16:15 61 16 126/69 96 07/21/19 16:00 65 10 L 126/83 96 07/21/19 15:45 59 L 18 134/75 96 07/21/19 15:31 36.2 C L 63 18 117/65 97 07/21/19 15:30 65 26 H 100 07/21/19 15:17 74 21 96 07/21/19 15:15 70 14 101/64 96 07/21/19 15:14 70 18 99/60 L 97 07/21/19 15:00 64 15 97/58 L 97 07/21/19 14:30 64 15 94/63 L 92 07/21/19 14:20 59 L 15 100/58 L 94 07/21/19 14:15 67 14 97/71 L 94 07/21/19 14:09 64 21 103/49 L 94 07/21/19 14:00 61 17 92 07/21/19 13:45 65 19 95 07/21/19 13:30 65 16 112/53 L 94 07/21/19 13:15 60 20 93 07/21/19 13:13 60 16 94 07/21/19 13:09 36.2 C L 60 15 94/57 L 92 07/21/19 12:50 36.3 C L 69 18 113/57 L 98 07/21/19 12:40 69 18 113/57 L 98 07/21/19 12:30 82 16 106/63 98 07/21/19 12:22 36.2 C L 93 H 16 115/87 98 Notes Mental Status: alert / awake / arousable Patient Amnestic to Procedure: Yes Nausea / Vomiting: adequately controlled Pain: adequately controlled Airway Patency, RR, SpO2: stable & adequate BP & HR: stable & adequate Hydration State: stable & adequate Anesthetic Complications: no major complications apparent and Pt Satisfied with anesthetic care
[2019-07-22] MEDS ORDERED: LANTUS PER UNIT CHARGE SQ SCH ×2 (09:00→21:00)
[2019-07-22] MEDS ORDERED: TRIAMTERENE/HCTZ 37.5/25MG TAB PO SCH (09:00)
--- NOTE | 2019-07-22 11:04 | Critical Care Progress Note ---
Date of Service July 22, 2019 Assessment & Plan (1) Admitted to intensive care unit: Reason critically ill: 69yo male with a PMHx significant for intellectual disability, HTN, HLD, Diabetes and recent L CVA who is being monitored after L carotid endarterectomy. NEURO: -baseline intellectual disability -However, post op will have q4 neuro checks for any deviation from baseline -Has scheduled tylenol and PRN Lind[place] and morphine ordered per primary team for pain post-op. -Hx of L CVA in MCA region with tPa administration- continue plavix and statin -Periodically agitated-redirecting currently, can consider one-to one sitter should agitation increase. Would avoid sedatives as neuro checks necessary. CV -Has Hx of coronary artery disease, HTN, HLD CAD -had 90% stenosis of L carotid on neck CTA -s/p endarterectomy on 07/21 -will continue to monitor for post-op complications such as hematoma, breathing issues, infection, etc. HLD -continue home statin HTN -continue triamterene 37.5mg/HCTZ 25mg per primary team Pulmonary -No concerns currently -will continue to monitor post-op Renal/ -Has been having trouble urinating. -Goes frequently, little out -straight cathed with 1200cc output -bladder scans as needed, consider further straight cathing. -d/c fluids. GI -Diet ordered per primary team ID -no concerns currently ENDO -Hx of diabetes -ICU protocol for hyperglycemia Lines: PIV DVT prophylaxis: SCDs Dispo: ICU for monitoring post-op Supervising Physician Co-Signing Physician Notes Dr. Reyes was the resident-physician during care of patient. I separately evaluated patient for taylor portions of the history and the exam. I was present during the critical portion of medical decision making, and I discussed the case with the resident. I generally agree with the findings and plan except for any additions/exceptions noted. Patient is doing clinically better status post left carotid endarterectomy. He was off and off for this morning. He has no significant focal deficits. I thin k he is safe to be transferred outside of the ICU at this time. Rest of care per Dr. Menchaca Subjective Mr. Bella was agitated overnight and continues to be. Has been having trouble urinating, Has been striaght cathed with signifcant output. Review of Systems Review of Systems: Unobtainable due to mental health condition Physical Exam Physical Exam: General: Alert, agitated. Skin: Right neck wound without visible bleeding, some redness. Psych: Pt is verbal, agitated. Neuro: Unable to determine whether CN intact, Able to move all extremities grossly. HEENT: NC/AT Chest: Nontender to palpation. CV: RRR, Normal s1, s2. No murmurs appreciated Resp: Breath sounds clear but decreased bilaterally, no increased effort of breathing. Abdomen: Soft, nontender, nondistended. No guarding. Extremities: No edema in lower extremities bilaterally. MSK: Grossly moves all extremities. Results & Data Vital Signs (Past 12 Hours) Vital Signs Temp Pulse Resp BP Pulse Ox 07/22/19 09:00 81 20 101/68 94 07/22/19 08:00 75 19 95 07/22/19 07:54 82 18 139/88 91 07/22/19 07:00 36.8 C 73 20 118/78 95 07/22/19 03:09 68 14 113/72 93 07/22/19 02:30 67 14 134/102 H 93 07/22/19 02:00 71 21 125/73 93 07/22/19 01:38 72 19 122/75 95 07/22/19 00:00 36.6 C 67 19 123/78 94 07/21/19 23:30 64 14 140/71 94 07/21/19 23:08 67 18 137/71 95 Laboratory Results Laboratory Results - last 24 hr 07/21/19 07/21/19 07/21/19 12:31 13:45 15:26 WBC 11.79 H RBC 4.39 L Hgb 13.1 L Hct 38.9 L MCV 88.6 MCH 29.8 MCHC 33.7 RDW Std Deviation 46.5 H RDW Coeff of Ludin 14.2 Plt Count 150 MPV 9.0 Immature Gran % (Auto) 0.3 Neut % (Auto) 86.1 Lymph % (Auto) 7.9 [place] % (Auto) 5.3 Eos % (Auto) 0.3 Baso % (Auto) 0.1 Immature Gran # (Auto) 0.03 H Neut # (Auto) 10.16 H Lymph # (Auto) 0.93 L [place] # (Auto) 0.63 H Eos # (Auto) 0.03 Baso # (Auto) 0.01 Sodium Potassium Chloride Carbon Dioxide Anion Gap BUN Creatinine Est Cr Clr Drug Dosing Est GFR ( Amer) Est GFR (Non-Af Amer) BUN/Creatinine Ratio Glucose POC Glucose 132 H Lactate Calcium Phosphorus Magnesium Nasal Screen MRSA (PCR) Negative 07/21/19 07/21/19 07/21/19 15:26 16:36 20:59 WBC RBC Hgb Hct MCV MCH MCHC RDW Std Deviation RDW Coeff of Ludin Plt Count MPV Immature Gran % (Auto) Neut % (Auto) Lymph % (Auto) [place] % (Auto) Eos % (Auto) Baso % (Auto) Immature Gran # (Auto) Neut # (Auto) Lymph # (Auto) [place] # (Auto) Eos # (Auto) Baso # (Auto) Sodium Potassium Chloride Carbon Dioxide Anion Gap BUN Creatinine Est Cr Clr Drug Dosing Est GFR ( Amer) Est GFR (Non-Af Amer) BUN/Creatinine Ratio Glucose POC Glucose 177 H 154 H Lactate 1.1 Calcium Phosphorus Magnesium Nasal Screen MRSA (PCR) 07/22/19 07/22/19 07/22/19 02:28 04:29 04:29 WBC 9.68 RBC 4.25 L Hgb 12.6 L Hct 38.3 L MCV 90.1 MCH 29.6 MCHC 32.9 RDW Std Deviation 47.7 H RDW Coeff of Ludin 14.6 H Plt Count 161 MPV 9.4 Immature Gran % (Auto) 0.3 Neut % (Auto) 73.1 Lymph % (Auto) 14.5 [place] % (Auto) 10.6 Eos % (Auto) 1.4 Baso % (Auto) 0.1 Immature Gran # (Auto) 0.03 H Neut # (Auto) 7.07 H Lymph # (Auto) 1.40 [place] # (Auto) 1.03 H Eos # (Auto) 0.14 Baso # (Auto) 0.01 Sodium 133 L Potassium 3.5 Chloride 101 Carbon Dioxide 27 Anion Gap 5.0 BUN 8 Creatinine 0.79 Est Cr Clr Drug Dosing 97.7 Est GFR ( Amer) 107.7 Est GFR (Non-Af Amer) 92.9 BUN/Creatinine Ratio 10.4 Glucose 136 H POC Glucose 151 H Lactate Calcium 8.0 L Phosphorus 2.7 Magnesium 1.9 Nasal Screen MRSA (PCR) 07/22/19 11:15 WBC RBC Hgb Hct MCV MCH MCHC RDW Std Deviation RDW Coeff of Ludin Plt Count MPV Immature Gran % (Auto) Neut % (Auto) Lymph % (Auto) [place] % (Auto) Eos % (Auto) Baso % (Auto) Immature Gran # (Auto) Neut # (Auto) Lymph # (Auto) [place] # (Auto) Eos # (Auto) Baso # (Auto) Sodium Potassium Chloride Carbon Dioxide Anion Gap BUN Creatinine Est Cr Clr Drug Dosing Est GFR ( Amer) Est GFR (Non-Af Amer) BUN/Creatinine Ratio Glucose POC Glucose 124 H Lactate Calcium Phosphorus Magnesium Nasal Screen MRSA (PCR) Medications Administered Home Medications glimepiride 2 mg PO PM 11/13/18 [History Confirmed 07/21/19] sitagliptin [Januvia] 100 mg PO PM 11/13/18 [History Confirmed 07/21/19] metformin ER 500 mg tablet,extended release 24 hr 2,000 mg PO DAILY tab 05/14/19 [History Confirmed 07/21/19] benzonatate 200 mg capsule 200 mg PO TID PRN #30 cap 05/18/19 [Rx Confirmed 07/21/19] acetaminophen 500 mg tablet 1,000 mg PO PM 06/25/19 [History Confirmed 07/21/19] triamterene 37.5 mg-hydrochlorothiazide 25 mg tablet 1 tab PO QAM tab 06/25/19 [History Confirmed 07/21/19] atorvastatin 40 mg PO QAM #30 tab 06/30/19 [Rx Confirmed 07/21/19] clopidogrel 75 mg PO QAM #30 tab 06/30/19 [Rx Confirmed 07/21/19] blood sugar diagnostic strips #50 ea 07/05/19 [Rx Confirmed 07/12/19] Active Medications Acetaminophen (Tylenol) 1,000 mg PO PM RONNIE Stop: 08/20/19 20:59 Last Admin: 07/21/19 20:52 Dose: 1,000 mg Documented by: Hydrocodone Bitart/Acetaminophen (Lindside 5/325) 1 - 2 tab PO Q4H PRN PRN Reason: Moderate Pain Stop: 08/04/19 13:34 Last Admin: 07/21/19 14:12 Dose: 1 tab Documented by: Atorvastatin Calcium (Lipitor) 40 mg PO QAM RONNIE Stop: 08/21/19 08:59 Last Admin: 07/22/19 08:03 Dose: 40 mg Documented by: Benzonatate (Tessalon Perle) 200 mg PO TID PRN PRN Reason: cough Stop: 08/20/19 13:34 Clopidogrel Bisulfate (Plavix) 75 mg PO QAM [facility] Stop: 08/21/19 08:59 Last Admin: 07/22/19 08:03 Dose: 75 mg Documented by: Dextrose (Dextrose 50%) 25 - 50 ml IV UD PRN; Protocol PRN Reason: Hypoglycemia Protocol Stop: 08/20/19 13:59 Glucagon (Glucagen) 1 mg IM UD PRN; Protocol PRN Reason: Hypoglycemia Protocol Stop: 08/20/19 13:59 Glucose (Glucose 40%) 15 - 30 gm PO UD PRN; Protocol PRN Reason: Hypoglycemia Protocol Stop: 08/20/19 13:59 Glucose (Dex4 Glucose) 4 - 8 tabs PO UD PRN; Protocol PRN Reason: Hypoglycemia Protocol Stop: 08/20/19 13:59 Phenylephrine HCl 20 mg/ (Dextrose) 502 mls @ 0 mls/hr IV .Q0M [facility]; Protocol Stop: 08/20/19 14:59 Last Titration: 07/22/19 07:30 Dose: 0 mcg/kg/min, 0 mls/hr Documented by: Insulin Aspart (Novolog Flexpen) 0 units SC [facility]; Protocol Stop: 08/20/19 16:29 Last Admin: 07/22/19 08:02 Dose: 1 units Documented by: Miscellaneous (Carbohydrates For Hypoglycemia) 15 - 30 gm PO UD PRN PRN Reason: Hypoglycemia Treatment Stop: 08/20/19 13:59 Miscellaneous Information (Consult Glycemic Management Pharmacy) 1 ea N/A UD PRN PRN Reason: Consult Stop: 08/20/19 13:42 Morphine Sulfate (Morphine Sulfate) 3 - 4 mg IV Q2H PRN PRN Reason: Severe Pain Stop: 08/04/19 13:34 Morphine Sulfate (Morphine Sulfate) 1 - 2 mg IV Q2H PRN PRN Reason: Severe Pain Stop: 08/04/19 13:44 Last Admin: 07/21/19 16:29 Dose: 2 mg Documented by: Ondansetron HCl (Zofran) 4 mg IV ONE PRN PRN Reason: Nausea And Vomiting PG Care Time/CCT Total # of Minutes Spent Total Time Spent with Patient: Total time spent is greater than 50% in coordination of care (as documented) at patient's floor/unit and/or counseling patient: Resident Activity Tracking Resident Involvement: Resident Care Provided Care Provided: Adult Hospital Medicine
--- NOTE | 2019-07-22 13:01 | Surgery Progress Note ---
Date of Service July 22, 2019 Assessment & Plan (1) Carotid artery stenosis with cerebral infarction: Doing well post op Will transfer to floor. (2) Urinary retention with incomplete bladder emptying: Has 400+ residual after voiding 200 cc Will consult urology Subjective Patient awake and alert. He is answering questions appropriately. Physical Exam Constitutional: WD/WN, vitals as above Neck: trachea midline Skin: + wound (dry and clean. minimal swelling) Neurologic: moves all extremities; no focal motor deficits Speech / Cognition: normal speech Psychiatric: Orientation: alert Genitourinary: + prostate abnormality Results & Data Vital Signs (Past 12 Hours) Vital Signs Temp Pulse Resp BP Pulse Ox 07/22/19 11:00 73 16 127/75 07/22/19 10:00 77 20 127/66 95 07/22/19 09:00 81 20 101/68 94 07/22/19 08:00 75 19 95 07/22/19 07:54 82 18 139/88 91 07/22/19 07:00 36.8 C 73 20 118/78 95 07/22/19 03:09 68 14 113/72 93 07/22/19 02:30 67 14 134/102 H 93 07/22/19 02:00 71 21 125/73 93 07/22/19 01:38 72 19 122/75 95
[2019-07-22] MEDS ORDERED: MoRPHine SULFATE 4 MG/ML 1 ML CARP\\VIAL IV STA (13:04)
--- NOTE | 2019-07-22 14:53 | Pharmacy Report ---
Pharmacy Glycemic Short Note 2 - Date of Service July 22, 2019 - Glycemic Short BSG Results (Last 24 hours): 07/21/19 07/21/19 07/22/19 16:36 20:59 02:28 Glucose POC Glucose 177 H 154 H 151 H 07/22/19 07/22/19 04:29 11:15 Glucose 136 H POC Glucose 124 H OUTPATIENT ANTIDIABETIC REGIMEN: * Metformin ER 2G daily * gilmepiride 2mg qpm * januvia 100mg qpm ASSESSMENT: * Fasting and post prandial BSGs acceptable * Patient received 21 units of insulin yesterday (16 of basal) * 12 units of lantus was given this morning and a scale placed for this evening. Dosed more conservatively given minimal intake at meals PLAN FOR INPATIENT GLYCEMIC CONTROL: * Hold outpatient oral diabetes medications * Basal insulin * Lantus 12 units SQ this morning * Lanus per scale this evening (0,4,or 8 units-see MAR for details) * Bolus insulin * NovoLog per scale ACHS or Q6hrs while NPO * Goal Range: Low 110 mg/dL - High 140 mg/dL * Correction Factor: 25 mg/dL/unit * Nutritional / Prandial insulin per carb ratio of 1 unit per 9 grams CHO consumed PLAN FOR DISCHARGE: * Well controlled on outpatient regimen. Would recommend continuation of home regimen on discharge
[2019-07-22] MEDS: ACETAMINOPHEN 500 MG TAB PO SCH (20:29)
[2019-07-23 07:11] VITALS: BP 138/78; PULSE 80; TEMP 97.7; O2SAT 94
[2019-07-23] MEDS ORDERED: METFORMIN HCL ER 500 MG TABCR PO SCH (08:00)
--- NOTE | 2019-07-23 08:52 | Urology Consultation ---
Date of Consultation July 23, 2019 Assessment & Plan (1) Urinary retention with incomplete bladder emptyinyo M with post operative retention s/p left carotid endarterectomy Encouraged by the fact that pt was able to void small amounts spontaneously. Recommend maintaining putnam catheter for 3-4 days then attempt TOV, okay to perform at [facility] where discharge planning intends for pt to return to. Recommend initiating alfuzosin and finasteride for max medical therapy unless deemed too high risk by vascular surgery. Alfuzosin chosen over tamsulosin to minimize risk of hypotension/orthostasis. Please monitor BP with initiation given pt's CV events. MILAN deferred today given pt's cognitive status and inability to provide consent, no family members at bedside. If TOV successful at rehab facility, okay to followup with PCP. If unsuccessful, replace putnam catheter and contact our office to arrange followup. Thank you for allowing us to participate in the acute care of Mr. Bella. Please reconsult us with additional questions, concerns or changes in patient status. History of Present Illness Reason for Consultation: post op retention Requesting Physician: Dr. Menchaca Attending Physician: Henry Menchaca MD History of Present Illness 69yo M with significant PMHx for severe intellectual disability, HTN, DMII, s/p L hemispheric CVA presented to [facility] for planned left carotid endartectomy. We were consulted to assist in post operative retention management s/p successful putnam catheter placement. All information received from chart review given pt's cognitive impairment. Post procedure, pt able to spontaneously void 200cc, with PVR >500cc prompting catheter placement. No previous Urology evaluation by our service accessible by record. No BPH medications on board. Per nursing, pt has been bothered by catheter but no sign of acute pain or bladder spasms. Draining clear yellow, no sign of pulling or trauma. Pt oriented to self, not place or time. Baseline voiding pattern unable to be obtained. Asking for "tummy rubs" while in room with him. Allergies Allergy/AdvReac Type Severity Reaction Status Date / Time No Known Allergies Allergy Verified 07/09/19 14:30 Home Medications Home Medications Medication Instructions Recorded Confirmed Type glimepiride 2 mg PO PM 11/13/18 07/21/19 History sitagliptin [Januvia] 100 mg PO PM 11/13/18 07/21/19 History metformin ER 500 mg 1,500 mg PO DAILY tab 05/14/19 07/22/19 History tablet,extended release 24 hr benzonatate 200 mg capsule 200 mg PO TID PRN #30 cap 05/18/19 07/21/19 Rx acetaminophen 500 mg tablet 1,000 mg PO PM 06/25/19 07/21/19 History triamterene 37.5 1 tab PO QAM tab 06/25/19 07/21/19 History mg-hydrochlorothiazide 25 mg tablet atorvastatin 40 mg PO QAM #30 tab 06/30/19 07/21/19 Rx clopidogrel 75 mg PO QAM #30 tab 06/30/19 07/21/19 Rx blood sugar diagnostic strips #50 ea 07/05/19 07/12/19 Rx Patient History Medical History Carotid artery stenosis with cerebral infarction CVA (cerebrovascular accident) 06/28/19: Posterior left hemispheric multifocal infarct s/p tPA ([facility])- right sided residual deficit- on plavix Intellectual disability resides at [facility] ([place])- brother (Gene) is POA and will be present AM DOS History of small bowel obstruction Diabetes NIDDM Dyslipidemia Hypertension Surgical History History of cholecystectomy History of colonoscopy Social History Preferred Language: Uzbek Communication Ability: Impaired Telecommunications Specialist Required: No Beliefs That Will Affect Care: None Current Living Situation: Long-Term Current Living Situation Comment: [facility] Other Information That Helps Us Care for You: No Feels Safe at Home: Yes Safety Concerns: Feels Safe At This Time Smoking Status: Never smoker Do You Dip or Chew Tobacco: No ; Second Hand Exposure: No ; Tobacco Cessation Education Requested by Patient: No Hx Alcohol Use: No Hx Substance Use: No Review of Systems Review of Systems: Unobtainable due to cognitive status Physical Exam Constitutional: no acute distress and not ill appearing Eyes: no nystagmus ENMT: Ears: no hearing impairment Neck: trachea midline Respiratory: no respiratory distress and no cough Cardiovascular: Vessels: no JVD Chest (Breasts): Chest: normal inspection of chest Gastrointestinal (Abdomen): Inspection/Auscultation: abdomen not distended and no abdominal edema Percussion/Palpation: abdomen soft; abdomen nontender Musculoskeletal: Head/Neck/Chest: normocephalic and head atraumatic Skin: no rashes, warm and dry Neurologic: awake; not confused and not obtunded Psychiatric: Orientation: alert and oriented x 3 Eye Contact: good eye contact Affect: no depressed affect Genitourinary: bladder normal to inspection; no CVA tenderness Lymphatic: no lymphadenopathy and no lymphedema Results & Data Vital Signs (Past 12 Hours) Vital Signs Temp Pulse Resp BP Pulse Ox 07/23/19 07:10 36.5 C 80 17 138/78 94 07/23/19 00:20 36.6 C 65 16 118/72 95 PG Care Time/CCT Total # of Minutes Spent Total Time Spent with Patient: Total time spent is greater than 50% in coordination of care (as documented) at patient's floor/unit and/or counseling patient:
[2019-07-23] MEDS: CLOPIDOGREL BISULFATE 75 MG TAB PO SCH (08:57)
[2019-07-23] MEDS: ATORVASTATIN 40 MG TAB PO SCH (08:57)
[2019-07-23] MEDS: INSULIN ASPART 100 UNITS/ML 3 ML PEN SC SCH ×2 (08:59→12:35)
[2019-07-23] MEDS ORDERED: FINASTERIDE 5 MG TAB PO SCH (09:00)
[2019-07-23] MEDS ORDERED: ALFUZOSIN HCL 10 MG TAB PO SCH (09:00)
--- NOTE | 2019-07-23 10:59 | Surgery Progress Note ---
Date of Service July 23, 2019 Assessment & Plan (1) Carotid artery stenosis with cerebral infarction: Doing well post op. Transfer back to [facility] for rehab today. (2) Urinary retention with incomplete bladder emptying: Pt will be d/c with Haddad catheter, with plans to remove for voiding trial in 3-4 days per Urology. Subjective 69 yo m POD #2 after L CEA d/t [facility] with CVA, seen in f/u today. Pt with noted mental disability and unable to answer questions well, however, states no pain. Seen by Urology this AM. Stable per RN. Review of Systems Review of Systems: Unobtainable due to cognitive status Physical Exam Constitutional: WD/WN, vitals as above Neck: trachea midline Skin: + wound (dry and clean. minimal swelling) Neurologic: moves all extremities; no focal motor deficits Psychiatric: Orientation: alert Results & Data Vital Signs (Past 12 Hours) Vital Signs Temp Pulse Resp BP Pulse Ox 07/23/19 07:10 36.5 C 80 17 138/78 94 07/23/19 00:20 36.6 C 65 16 118/72 95
--- NOTE | 2019-07-23 11:04 | Discharge Summary ---
Date of Service July 23, 2019 Admission HPI Per Admitting Provider History of Present Illness 69 yo m with hx of severe intellectual disability, HTN, DMII, and dyslipiemia, admitted with acute L hemispheric CVA, seen in consultation today for LICAS of 90%. Pt also underwent tPA administration. Pt unable to give meaningful hx d/t mental disability, so most hx obtained from prior notes and brother, Gene, who is POA. Pt apparently was in normal state of health until sx began, which included R arm weakness and worse than normal speech deficiency. Per chart, pt's R arm weakness remains despite tPA admin, but is improved from presentation. No prior hx of CVA. NECK CTA demonstrates severe stenosis of LICA, 90%. BRAIN MRI demonstrates small L lacunar and posterior frontal lobe infarcts. Signed By: <Electronically signed by Jannet Laws PA-C> 06/30/19 [id number] <Electronically signed by Henry Menchaca MD> 07/02/19 1451 Created: 06/30/19 0908 The status of this report is Signed. Draft = Not yet reviewed or approved by Medical Physician. Signed = Reviewed and approved by Medical Physician Admission Exam Per Admitting Provider Constitutional: WD/WN, vitals as above well developed, well nourished, + obese, healthy appearing, + disheveled and comfortable; not in distress and not combative Eyes: PERRL, conjunctivae normal, anicteric sclerae ENMT: external ear and nose normal, oropharynx normal Ears: no hearing impairment Nose: no nasal discharge Neck: no tracheal deviation, no neck crepitus and neck nontender Respiratory: normal respiratory effort, lungs clear to auscultation does not use accessory muscles and no cough Auscultation: lungs clear to auscultation bilaterally and + diminished lung sounds; no rhonchi and no wheezes Cardiovascular: Rate/Rhythm: regular rate and regular rhythm Heart Sounds: no gallop and no murmur Vessels: + carotid bruit, femoral pulses present, posteri or tibial pulses present, dorsalis pedis pulses present, brachial pulses present and radial pulses present; no femoral bruit and + abnormal peripheral pulses Extremities: normal capillary refill; no edema Gastrointestinal (Abdomen): normal bowel sounds, soft, nontender, no hepatosplenomegaly Inspection/Auscultation: abdomen normal to inspection and normal bowel sounds; abdomen not distended Percussion/Palpation: abdomen soft; abdomen nontender, no guarding, abdomen not rigid and no abdominal mass Musculoskeletal: Head/Neck/Chest: normocephalic, head atraumatic and neck supple Extremities: extremities normal to inspection; + abnormal strength (R hand/arm 1/5, other ext 5/5) Skin: no rashes, warm and dry normal turgor; no lesions, no ulcers, no induration, no erythema, no eschar, no excoriations and no mottling Neurologic: moves all extremities, + focal motor deficit (R arm/hand weakness), awake and + confused Speech / Cognition: + abnormal speech (slow, d/t disability) and + abnormal cognition; no receptive aphasia Motor/Sensory: + pronator drift (r arm); no tremor Cranial Nerves: normal facial strength and tongue midline Psychiatric: Orientation: alert, oriented to person and oriented to place Apperance: appropriately dressed and appeared stated age Affect: + anxious affect, + tearful affect and + labile affect Thought Process: + thought process not goal directed, + thought process not linear or logical and + thought process not clear or coherent Principal Diagnosis 1. s/p L CEA 2. LICAS with CVA 3. Post op Urinary retention Discharge Exam Constitutional WD/WN, vitals as above Neck trachea midline Skin + wound (dry and clean. minimal swelling) Neurologic moves all extremities; no focal motor deficits Psychiatric Orientation: alert Discharge Data Allergies Allergy/AdvReac Type Severity Reaction Status Date / Time No Known Allergies Allergy Verified 07/09/19 14:30 Consultations 07/21/19 13:35 Consult Experimental Worker Routine 07/22/19 14:51 Consult Urology Routine Procedures Performed Operation Date: 07/21/19 09:20 Actual Procedures p Left Carotid Endarterectomy with Patch Angioplasty(Left) - Henry Menchaca MD Hospital Course (1) Carotid artery stenosis with cerebral infarction: Doing well post op. Transfer back to [facility] for rehab today. (2) Urinary retention with incomplete bladder emptying: Pt will be d/c with Haddad catheter, with plans to remove for voiding trial in 3-4 days per Urology. Has been started on proscar and alfuzosin. Follow up with Urology if pt fails voiding trial. Total Time Total Time Spent Total Time Spent (In Minutes): 15 minutes Total Time Includes: Examination of the Patient, Discharge Planning and Medication Reconciliation Discharge Plan Discharge Items Patient Disposition: Transfer Inpatient Rehab Fac Reason For Visit: Left Carotid Artery Stenting, Symptomatic Discharge Diagnosis: 1. s/p Left Carotid Endarterectomy with bovine patch 2. Symptomatic Left Internal Carotid Artery Stenosis with CVA 3. Post op Urinary Retention Condition on Discharge: Good Activity: Per Instructions section Non-emergency contact: Primary Care Provider and Surgeon Call non-emergency contact if: you have any medication questions, your pain is not controlled, your temperature is above 101, your wound has increased redness and your wound has increased drainage Follow-up/Referrals: Renzo Patten MD [Primary Care Provider] - Lenore Mathur CRNP [Nurse Practitioner] - (Follow up with Urology in 3-4 days IF pt fails voiding trial. ) Jannet Laws PA-C [Physician Heel Slugger] - (Follow up with Dr Menchaca or Jannet Laws PA-C, in 2 weeks in office. Call [phone] for appt. ) Diet: Carb Consistent or DM2 and Heart Healthy Addtl Attending Provider Instructions: 1. Pt may increase activity as tolerated. 2. Pt may shower and/or bathe as needed, just dry L neck incision gently. 3. Pt to have Haddad catheter removed for voiding trial in 3-4 days. If pt fails voiding trial, call Urology for appt. 4. Pt needs follow up appt in office with Dr Menchaca or Jannet Laws PA-C, in 2 weeks to eval L neck wound. Pending Studies at Discharge: No Stand-Alone Forms: My [facility] Skilled Items Patient informed of condition?: No DNR: No Discharge Level of Care: Acute rehab Communicable Disease: No Discharge Prognosis: Improving Lines: None Urinary Catheter: Yes (Voiding trial in 3-4 days. Follow up with Urology if fails. ) Medications and DC Order Prescriptions: New finasteride [Proscar] 5 mg Tablet 5 mg PO QAM Qty: 0 RF: 0 alfuzosin 10 mg Tablet Extended Release 24 Hr 10 mg PO QAM Qty: 0 RF: 0 Continued triamterene-hydrochlorothiazid [Maxzide-25mg] 37.5-25 mg tablet 1 tab PO QAM RF: 0 acetaminophen [Tylenol Extra Strength] 500 mg tablet 1,000 mg PO PM RF: 0 FreeStyle Lite Strips strip .ROUTE .MEDSUPPLY Qty: 50 RF: 5 metformin 500 mg tablet extended release 24 hr 1,500 mg PO DAILY RF: 0 benzonatate 200 mg capsule 200 mg PO TID PRN (Reason: cough) Qty: 30 RF: 1 glimepiride 2 mg tablet 2 mg PO PM RF: 0 Januvia 100 mg tablet 100 mg PO PM RF: 0 clopidogrel 75 mg Tablet 75 mg PO QAM Qty: 30 RF: 0 atorvastatin 40 mg Tablet 40 mg PO QAM Qty: 30 RF: 0 Discharge Orders: Discharge Order (Routine); Ordered 07/23/19 Ordered By: Jannet Laws Admission Data Admit Date/Time: 07/21/19 09:23 Attending Provider: Henry Menchaca Admit Provider: Henry Menchaca Primary Care Provider: Renzo Patten Other Providers: [facility] ; Carlton Enriquez ; Wicho Taylor ; Ponce Ashley ; Britton Gutiérrez ; Etienne Oates ; Alexander Joyce ; Davi Bai ; Lurdes Ceron ; Kenny Diaz ; Joya Fagan ; Leonard Red ; Joshua Rogers ; Jaleel Frausto ; Simon Shahid ; Arsh Chaudhry ; Joshua Kidd ; Ismael Marie I. ; Bartolo Johnson ; Lenore Mathur ; Sourav WILSON,Kleber Barton ; Taina Patten I ; Alberto Jackson ; Ghazal Eagle
--- NOTE | 2019-07-23 13:00 | Pharmacy Report ---
Pharmacy Glycemic Short Note 2 - Date of Service July 23, 2019 - Glycemic Short BSG Results (Last 24 hours): 07/22/19 07/22/19 07/23/19 17:09 20:39 08:12 POC Glucose 152 H 138 H 137 H 07/23/19 12:11 POC Glucose 99 OUTPATIENT ANTIDIABETIC REGIMEN: * Metformin ER 2G daily * gilmepiride 2mg qpm * januvia 100mg qpm ASSESSMENT: 07/23: * Patient received total of 22 units of insulin yesterday; 16 of which was basal Lantus and the rest bolus Novolog. * Dr. Menchaca ordered home dose of Metformin starting this morning and also okayed resumption of Januvia this evening. * Fasting and post prandial BSGs are within goal. * Removed carb ratio with lunch today since BSG at 99 and Metformin started this morning. 07/22: * Fasting and post prandial BSGs acceptable * Patient received 21 units of insulin yesterday (16 of basal) * 12 units of lantus was given this morning and a scale placed for this evening. Dosed more conservatively given minimal intake at meals PLAN FOR INPATIENT GLYCEMIC CONTROL: * Resumed Metformin ER 1500 mg QAM * Resumed Januvia 100 mg QPM * Basal insulin: None since patient to be discharged soon and all oral anti- diabetic agents will be resumed. * Bolus insulin: removed Carb Ratio * NovoLog per scale ACHS or Q6hrs while NPO * Goal Range: Low 110 mg/dL - High 140 mg/dL * Correction Factor: 25 mg/dL/unit * Nutritional / Prandial insulin per carb ratio: None PLAN FOR DISCHARGE: * HbA1c = 6.7% * Well controlled on outpatient regimen. Would recommend continuation of home regimen on discharge
[2019-07-23] MEDS ORDERED: SITAGLIPTIN PHOSPHATE 100 MG TAB PO SCH (21:00)
== END 2019-07-23 13:44 | DRG 38 ==
LOC: ASU 07:26 → 1E 11:57 → 3E 07-22 14:49

== ENCOUNTER 2021-07-26 17:54 | Observation (INO) ==
--- NOTE | 2021-07-26 18:49 | Emergency Department Note ---
Impression & Plan Chest pain, Elevated troponin I level, Abnormal EKG, Abdominal wall pain in left flank, Closed rib fracture ED Provider Note TraumaNAME: AMANDO BLANDON AGE: 71 SEX: M : 1950 ARRIVES VIA: Walk-In INFORMANT: Patient, the patient's sister ED PROVIDER(S): Jossue Velasquez DO CHIEF COMPLAINT: Left flank pain HPI: The patient is a 71-year-old male who presented to the emergency department for an evaluation of left flank pain. The patient has had left flank pain intermittently throughout the day. He denies having any chest pain or back pain. He points to his left upper quadrant. He has had no diarrhea black or bloody bowel movements. He has some underlying learning disability and most of his history comes from his sister. They did call his family doctor but they were referred to the emergency department because "he might need x-rays". He has had no vomiting. He has had no black or bloody bowel movements. He denies having any chest pain. He said no recent trauma. The patient denies having any dysuria but his sister did notice he has had some decreased urine output. He is also had some urinary incontinence recently which would be new for him. ROS: See above HPI for pertinent positives & negatives. A total of 10 systems reviewed and were otherwise negative. PAST MEDICAL HISTORY: See Below PAST SURGICAL HISTORY: See Below FAMILY HISTORY: See Below SOCIAL HISTORY: See Below HOME MEDICATIONS: See Below ALLERGIES: See Below VITALS: See Below PHYSICAL EXAMINATION: GENERAL: The patient is awake and alert. He is walking around the room and appears to be comfortable. EYES: The conjunctivae are clear. The pupils are round and reactive. EARS, NOSE, MOUTH AND THROAT: The nose is without any evidence of any deformity. NECK: The neck is nontender and supple. RESPIRATORY: Normal respiratory effort is noted there is no evidence of wheezing rhonchi or rales CARDIOVASCULAR: Regular rate and rhythm noted there no murmurs rubs or gallops normal S1 normal S2. GASTROINTESTINAL: The abdomen is soft. Abdomen is nontender. MUSCULOSKELETAL/EXTREMITIES: There is no evidence of gross deformity full range of motion is noted in the hips and shoulders. SKIN: There is no obvious evidence of any rash. There are no petechiae, pallor or cyanosis noted. NEUROLOGIC: Patient is awake alert and oriented to person place and situation. He is at his baseline according to his sister. MEDICAL DECISION MAKING: The patient is a 71-year-old male who presented to the emergency department for an evaluation of the left upper quadrant abdominal pain and left lower chest pain. The patient's pain was thought to be musculoskeletal in nature. He was found to have a rib fracture on CT of the abdomen and pelvis but he had no. The patient also had an abnormal EKG and an elevated troponin. The EKG does appear to be consistent with previous tracing however the elevated troponin would be a new finding. I discussed the patient's laboratory and radiographic studies with him and his family member. Because of his findings I also discussed his case with the on-call [facility] hospitalist. They have agreed to evaluate the patient in the emergency department for further management and disposition. The patient appears to be pain-free at this time. He was given aspirin in the emergency department. Triage Nursing notes reviewed. Prior medical records reviewed Vital Signs: reviewed and remarkable for elevated blood pressure. Differential diagnosis: Renal colic, UTI, appendicitis, diverticulitis, mesenteric ischemia, aortic pathology, infections, inflammatory bowel disease, PUD, biliary pathology, as well as other pathologies. ER treatment provided: See below Diagnostics interpreted by me: ECG: EKG was obtained in the emergency department. My interpretation is sinus rhythm at 72 bpm. First-degree AV block was noted. Inferior Q waves with high and low lateral ST depressions were noted. T wave abnormalities were noted in the anterior leads. This was compared to a tracing from August 062018. No significant changes were noted. Cardiac Monitoring: An order was placed for continuous cardiac monitoring. The monitor shows a rate of 77 bpm with sinus rhythm. Laboratory studies: As stated above and show below. Imaging studies: See below Consultation(s): I discussed this case with Dr. Hernandez who is on-call for the [facility]. 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 ([facility])- right sided residual deficit- on plavix Diabetes NIDDM Dyslipidemia GI bleed History of small bowel obstruction Hypertension Intellectual disability resides at [facility] ([place] brother (Gene) is POA and will be present AM DOS Postop carotid endarterectomy surveillance, encounter for Urinary retention with incomplete bladder emptying Surgical History History of cholecystectomy History of colonoscopy Family History Other No pertinent family history Social History Smoking Status: Never smoker Second Hand Exposure: No; Hx Alcohol Use: Yes Alcohol type: beer Hx Substance Use: No Preferred Language: Swiss Communication Ability: Impaired Visual Impairment: No Limitations Hearing Ability: Normal Diagnostics Sales Developer Required: No Beliefs That Will Affect Care: None marital status: Single Current Living Situation: Family Current Living Situation Comment: lives with sister current occupational status: other 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 [employer] Feels Safe at Home: Yes caffeine: Yes Seatbelt Use: always Sunscreen Use: Yes Assistive Devices: Walker Allergies Allergies Allergy/AdvReac Type Severity Reaction Status Date / Time amoxicillin [From Augmentin] Allergy Unknown CAN'T Verified 07/26/21 19:04 REMEMBER clavulanic acid Allergy Unknown CAN'T Verified 07/26/21 19:04 [From Augmentin] REMEMBER Penicillins Allergy Unknown CAN'T Verified 07/26/21 19:04 REMEMBER Home Meds Home Medications Medication Instructions Recorded Confirmed acetaminophen 500 mg tablet 1,000 mg PO DIRECTED PRN 06/25/19 07/26/21 (Tylenol Extra Strength) aspirin 81 mg tablet,delayed 81 mg PO QPM 08/06/19 07/26/21 release glimepiride 2 mg tablet 2 mg PO DAILY 07/26/21 07/26/21 insulin glargine 100 unit/mL (3 12 unit SUBCUT QPM 07/26/21 07/26/21 mL) subcutaneous pen (Basaglar KwikPen U-100 Insulin) Previous Rx's Medication Instructions Recorded atorvastatin 40 mg tablet 40 mg PO DAILY #90 tab 02/01/21 metformin 500 mg tablet,extended 2,000 mg PO DAILY #360 tab 02/01/21 release 24 hr sitagliptin 100 mg tablet (Januvia) 100 mg PO DAILY #90 tab 02/01/21 blood sugar diagnostic (FreeStyle #100 ea 05/02/21 Lite Strips) clopidogrel 75 mg tablet 75 mg PO DAILY #90 tab 05/11/21 finasteride 5 mg tablet (Proscar) 5 mg PO DAILY #90 tab 07/09/21 triamterene 37.5 1 tab PO DAILY #90 tab 07/09/21 mg-hydrochlorothiazide 25 mg tablet (Maxzide-25mg) Results & Data (ED) Vital Signs Vital Signs - 24 hr 07/26/21 18:04 07/26/21 18:53 07/26/21 20:55 Temperature 36.9 C Temperature Source Oral Pulse Rate 80 Pulse Rate [Apical] 73 71 Pulse Rhythm [Apical] Regular Pulse Strength [Apical] Normal Respiratory Rate 18 18 19 Respiratory Effort / Characteristics Non-Labored Respiratory Depth Normal Normal Blood Pressure 161/88 H Blood Pressure [Left Arm] 157/100 H 150/100 H Blood Pressure Mean 112 Blood Pressure Mean [Left Arm] 119 116 Pulse Oximetry 96 95 95 Oxygen Delivery Method Room Air Room Air Sepsis Recent Fever Within 48 Hours No Sepsis New/Unexplained Change in Mental Status No Sepsis Action Taken by Nursing No Action Required 07/26/21 22:08 Temperature Temperature Source Pulse Rate Pulse Rate [Apical] 77 Pulse Rhythm [Apical] Pulse Strength [Apical] Respiratory Rate 16 Respiratory Effort / Characteristics Respiratory Depth Blood Pressure Blood Pressure [Left Arm] Blood Pressure Mean Blood Pressure Mean [Left Arm] Pulse Oximetry 96 Oxygen Delivery Method Sepsis Recent Fever Within 48 Hours Sepsis New/Unexplained Change in Mental Status Sepsis Action Taken by Assisted Medications Current Medication List: was personally reviewed by me Laboratory Data Attestation: I reviewed the patient's lab results. Result diagrams: 07/26/21 18:55 07/26/21 18:55 Lab Results 07/26/21 07/26/21 07/26/21 Range/Units 18:55 18:55 18:55 WBC 9.56 (4.8-10.8) K/uL RBC 4.91 (4.7-6.1) M/uL Hgb 14.5 (14.0-18.0) g/dL Hct 43.7 (42-52) % MCV 89.0 (80-100) fL MCH 29.5 (25-34) pg MCHC 33.2 (32-36) g/dL RDW Std Deviation 45.7 (36.4-46.3) fL RDW Coeff of Ludin 14.0 (11.5-14.5) % Plt Count 191 (130-400) K/uL MPV 9.8 (7.4-10.4) fL Immature Gran % (Auto) 0.4 % Neut % (Auto) 70.4 % Lymph % (Auto) 18.0 % [place] % (Auto) 9.4 % Eos % (Auto) 1.6 % Baso % (Auto) 0.2 % Neut # (Auto) 6.73 H (1.4-6.5) K/uL Lymph # (Auto) 1.72 (1.2-3.4) K/uL [place] # (Auto) 0.90 H (0.11-0.59) K/uL Eos # (Auto) 0.15 (0-0.5) K/uL Baso # (Auto) 0.02 (0-0.2) K/uL Immature Gran # (Auto) 0.04 H (0.00-0.02) K/uL PT 11.7 (9.0-12.0) Seconds INR 1.2 H (0.9-1.1) APTT 25.6 (21.0-31.0) Seconds PTT Ratio 1.0 D-Dimer (0-500) ug/L FEU Sodium 137 (136-145) mmol/L Potassium 3.8 (3.5-5.1) mmol/L Chloride 103 (98-107) mmol/L Carbon Dioxide 26 (21-32) mmol/L Anion Gap 8.0 (3-11) BUN 13 (7-18) mg/dl Creatinine 0.78 (0.6-1.4) mg/dl Est Cr Clr Drug Dosing Not Reportable Est GFR ( Amer) 106.7 ml/min Est GFR (Non-Af Amer) 92.1 ml/min BUN/Creatinine Ratio 17.2 (10-20) Glucose 158 H (70-99) mg/dl Calcium 9.3 (8.5-10.1) mg/dl Total Bilirubin 1.0 (0.2-1) mg/dl AST 20 (15-37) U/L ALT 32 (12-78) U/L Alkaline Phosphatase 81 (45-117) U/L Troponin I 0.205 H* (0-0.045) ng/ml Total Protein 7.9 (6.4-8.2) gm/dl Albumin 3.7 (3.4-5.0) gm/dl Globulin 4.2 H (2.5-4.0) gm/dl Albumin/Globulin Ratio 0.9 (0.9-2) Lipase 117 (73-393) U/L COVID-19 Eval Order SARS-CoV-2 (PCR) (Negative) 07/26/21 07/26/21 07/26/21 Range/Units 18:55 20:54 20:54 WBC (4.8-10.8) K/uL RBC (4.7-6.1) M/uL Hgb (14.0-18.0) g/dL Hct (42-52) % MCV (80-100) fL MCH (25-34) pg MCHC (32-36) g/dL RDW Std Deviation (36.4-46.3) fL RDW Coeff of Ludin (11.5-14.5) % Plt Count (130-400) K/uL MPV (7.4-10.4) fL Immature Gran % (Auto) % Neut % (Auto) % Lymph % (Auto) % [place] % (Auto) % Eos % (Auto) % Baso % (Auto) % Neut # (Auto) (1.4-6.5) K/uL Lymph # (Auto) (1.2-3.4) K/uL [place] # (Auto) (0.11-0.59) K/uL Eos # (Auto) (0-0.5) K/uL Baso # (Auto) (0-0.2) K/uL Immature Gran # (Auto) (0.00-0.02) K/uL PT (9.0-12.0) Seconds INR (0.9-1.1) APTT (21.0-31.0) Seconds PTT Ratio D-Dimer 350 (0-500) ug/L FEU Sodium (136-145) mmol/L Potassium (3.5-5.1) mmol/L Chloride (98-107) mmol/L Carbon Dioxide (21-32) mmol/L Anion Gap (3-11) BUN (7-18) mg/dl Creatinine (0.6-1.4) mg/dl Est Cr Clr Drug Dosing Est GFR ( Amer) ml/min Est GFR (Non-Af Amer) ml/min BUN/Creatinine Ratio (10-20) Glucose (70-99) mg/dl Calcium (8.5-10.1) mg/dl Total Bilirubin (0.2-1) mg/dl AST (15-37) U/L ALT (12-78) U/L Alkaline Phosphatase (45-117) U/L Troponin I (0-0.045) ng/ml Total Protein (6.4-8.2) gm/dl Albumin (3.4-5.0) gm/dl Globulin (2.5-4.0) gm/dl Albumin/Globulin Ratio (0.9-2) Lipase (73-393) U/L COVID-19 Eval Order Covid19 at [facility] SARS-CoV-2 (PCR) NEGATIVE (Negative) Administered Medications Discontinued Medications Aspirin (Aspirin Chew 324 Mg) 324 mg PO NOW STA Stop: 07/26/21 20:35 Last Admin: 07/26/21 20:53 Dose: 324 mg Documented by: [id number] Lorazepam (Lorazepam 1 Mg Tab) 1 mg PO NOW STA Stop: 07/26/21 21:23 Last Admin: 07/26/21 21:32 Dose: 1 mg Documented by: [id number] Imaging Data Radiologist's Impression: Abdomen/Pelvis CT 07/26/21 18:39 CT SCAN OF THE ABDOMEN AND PELVIS WITHOUT IV CONTRAST CLINICAL HISTORY: Left flank pain. COMPARISON STUDY: Abdominal CT dated 11/13/2018. TECHNIQUE: CT scan of the abdomen and pelvis is performed from the lung bases to the proximal femora. Images are reviewed in the axial, sagittal, and coronal planes. IV contrast was not administered for this examination. A dose lowering technique was utilized adhering to the principles of ALARA. The examination is compromised by motion artifact. CT DOSE: 823.32 mGy.cm FINDINGS: Lung bases: The heart is mildly enlarged and without pericardial effusion. The pulmonary trunk is dilated measuring up to 4.8 cm diameter. This suggests pulmonary artery hypertension. The coronary arteries and mitral annulus are densely calcified. There is mild aneurysmal dilatation of the ascending thoracic aorta which measures up to 4.2 cm diameter. There is a tiny hiatal hernia. There is eventration of the right hemidiaphragm with bibasilar atelectasis. Mild patchy airspace consolidation is seen in the lingula. Liver: The unenhanced liver is normal in size, contour, and attenuation. There is no intrahepatic biliary ductal dilatation. There are numerous calcified hepatic granulomas. Gallbladder: Surgically absent noting clips in the gallbladder fossa. Spleen: Normal in size and attenuation. Pancreas: The unenhanced pancreas is grossly unremarkable. Adrenal glands: Unremarkable. Kidneys: The unenhanced kidneys demonstrate cortical atrophy and are without hydronephrosis. There is a 4 mm nonobstructing calculus in the right lower pole. A 2 mm nonobstructing calculus is noted in the left kidney. No ureteral stone is identified. A 13 mm exophytic cyst arises from the left upper pole. Abdominal vasculature: The abdominal aorta is normal in course and caliber noting moderate atherosclerotic calcification. Bowel: There is mild/moderate colonic fecal retention. No bowel obstruction is identified. The appendix is well-visualized and normal. Peritoneum: There is no intraperitoneal free air or abdominal ascites. Lymphadenopathy: None. Pelvic viscera: The prostate gland is enlarged and heterogeneous noting median lobe hypertrophy. The bladder wall appears thickened and trabeculated suggesting chronic outlet obstruction. Skeletal structures: The skeletal structures are osteopenic. Mild to moderate lumbosacral spondylosis is observed. No lytic or blastic lesions are seen. There is an age indeterminant left anterior 5th rib fracture, which is new from 2018. Additional chronic rib fractures are seen bilaterally. IMPRESSION: 1. Motion degraded examination. 2. There is mild patchy airspace consolidation in the lingula. Correlate clinically for evidence of an infectious/inflammatory pneumonitis. 3. There is an age indeterminant left anterior 5th rib fracture which is new from 2019. This may be subacute or chronic. Correlate for point tenderness. 4. No acute infectious or inflammatory findings are seen in the abdomen or pelvis. 5. Bilateral nephrolithiasis. 6. Cardiomegaly. 7. Dilatation of the pulmonary trunk and mild aneurysmal dilatation of the ascending thoracic aorta are similar to previous. 8. Additional findings as above. ACT 112: Negative or not required by law. Electronically signed by: Carlton Shen M.D. 07/26/2021 7:49 PM Chest X-Ray 07/26/21 18:41 SINGLE VIEW CHEST CLINICAL HISTORY: Left upper quadrant abdominal pain. FINDINGS: An AP, portable, semierect chest radiograph is compared to study dated 08/06/2019. The heart is enlarged. The pulmonary vasculature is noncongested. There are low lung volumes with bibasilar atelectasis. No airspace consolida tion, large pleural effusion, or pneumothorax is identified. The skeletal structures are osteopenic. The bony thorax is grossly intact. IMPRESSION: Mild cardiomegaly with no acute cardiopulmonary abnormality. ACT 112: Negative or not required by law. Electronically signed by: Carlton Shen M.D. 07/26/2021 7:15 PM Discharge Plan Visit Data Chief Complaint: Abdominal Pain Stated Complaint: ABDOMINAL PAIN ON L SIDE ED Provider: Jossue Velasquez Discharge Problem: Chest pain, Elevated troponin I level, Abnormal EKG, Abdominal wall pain in left flank, Closed rib fracture Patient Disposition: Being Evaluated by Hospitalist Forms Stand Alone Forms: [facility] Prescriptions Prescriptions: No Action acetaminophen [Tylenol Extra Strength] 500 mg tablet 1,000 mg PO DIRECTED PRN (Reason: Pain) RF: 0 atorvastatin 40 mg tablet 40 mg PO DAILY Qty: 90 RF: 3 metformin 500 mg tablet extended release 24 hr 2,000 mg PO DAILY Qty: 360 RF: 3 Januvia 100 mg tablet 100 mg PO DAILY Qty: 90 RF: 3 (DME) FreeStyle Lite Strips Strip See Rx Instructions .ROUTE .MEDSUPPLY Qty: 100 RF: 3 clopidogrel 75 mg tablet 75 mg PO DAILY Qty: 90 RF: 3 triamterene-hydrochlorothiazid [Maxzide-25mg] 37.5-25 mg tablet 1 tab PO DAILY Qty: 90 RF: 3 finasteride [Proscar] 5 mg tablet 5 mg PO DAILY Qty: 90 RF: 3 aspirin 81 mg Tablet,Delayed Release (Dr/Ec) 81 mg PO QPM RF: 0 glimepiride 2 mg tablet 2 mg PO DAILY RF: 0 Basaglar KwikPen U-100 Insulin 100 unit/mL (3 mL) insulin pen 12 unit subcut QPM RF: 0 Referrals Referrals: Renzo Patten MD [Primary Care Provider] -
[2021-07-26 19:06] LABS: Basophils # (auto) 0.02 K/uL (0-0.2); Basophils % (auto) 0.2 %; Eosinophils # (auto) 0.15 K/uL (0-0.5); Eosinophils % (auto) 1.6 %; Hematocrit (blood only) 43.7 % (42-52); Hemoglobin 14.5 g/dL (14.0-18.0); Immature Granulocytes # (auto) 0.04 K/uL (0.00-0.02); Immature Granulocytes % (auto) 0.4 %; Lymphocytes # (auto) 1.72 K/uL (1.2-3.4); Mean Corpuscular Hemoglobin 29.5 pg (25-34); Mean Corpuscular Hgb Conc 33.2 g/dL (32-36); Mean Platelet Volume 9.8 fL (7.4-10.4); Monocytes % (auto) 9.4 %; Neutrophils # (auto) 6.73 K/uL (1.4-6.5); Neutrophils % (auto) 70.4 %; Platelet Count 191 K/uL (130-400); RDW Standard Deviation 45.7 fL (36.4-46.3); Red Blood Count 4.91 M/uL (4.7-6.1); White Blood Count 9.56 K/uL (4.8-10.8)
[2021-07-26 19:17] LABS: INR 1.2 (0.9-1.1); Partial Thromboplastin Time 25.6 Seconds (21.0-31.0); Prothrombin Time 11.7 Seconds (9.0-12.0)
--- NOTE | 2021-07-26 19:17 | XRay Report ---
SINGLE VIEW CHEST CLINICAL HISTORY: Left upper quadrant abdominal pain. FINDINGS: An AP, portable, semierect chest radiograph is compared to study dated 08/06/2019. The heart is enlarged. The pulmonary vasculature is noncongested. There are low lung volumes with bibasilar at electasis. No airspace consolidation, large pleural effusion, or pneumothorax is identified. The skel etal structures are osteopenic. The bony thorax is grossly intact. IMPRESSION: Mild cardiomegaly with no acute cardiopulmonary abnormality. ACT 112: Negative or not required by law. Electronically signed by: Carlton Shen M.D. 07/26/2021 7:15 PM
--- NOTE | 2021-07-26 19:50 | CT Scan Report ---
CT SCAN OF THE ABDOMEN AND PELVIS WITHOUT IV CONTRAST CLINICAL HISTORY: Left flank pain. COMPARISON STUDY: Abdominal CT dated 11/13/2018. TECHNIQUE: CT scan of the abdomen and pelvis is performed from the lung bases to the proximal femora. Images are reviewed in the axial, sagittal, and coronal planes. IV contrast was not administered for this examination. A dose lowering technique was utilized adhering to the principles of ALARA. The ex amination is compromised by motion artifact. CT DOSE: 823.32 mGy.cm FINDINGS: Lung bases: The heart is mildly enlarged and without pericardial effusion. The pulmonary trunk is dil ated measuring up to 4.8 cm diameter. This suggests pulmonary artery hypertension. The coronary arter ies and mitral annulus are densely calcified. There is mild aneurysmal dilatation of the ascending th oracic aorta which measures up to 4.2 cm diameter. There is a tiny hiatal hernia. There is eventratio n of the right hemidiaphragm with bibasilar atelectasis. Mild patchy airspace consolidation is seen i n the lingula. Liver: The unenhanced liver is normal in size, contour, and attenuation. There is no intrahepatic jericho iary ductal dilatation. There are numerous calcified hepatic granulomas. Gallbladder: Surgically absent noting clips in the gallbladder fossa. Spleen: Normal in size and attenuation. Pancreas: The unenhanced pancreas is grossly unremarkable. Adrenal glands: Unremarkable. Kidneys: The unenhanced kidneys demonstrate cortical atrophy and are without hydronephrosis. There is a 4 mm nonobstructing calculus in the right lower pole. A 2 mm nonobstructing calculus is noted in t he left kidney. No ureteral stone is identified. A 13 mm exophytic cyst arises from the left upper po le. Abdominal vasculature: The abdominal aorta is normal in course and caliber noting moderate atheroscle rotic calcification. Bowel: There is mild/moderate colonic fecal retention. No bowel obstruction is identified. The append ix is well-visualized and normal. Peritoneum: There is no intraperitoneal free air or abdominal ascites. Lymphadenopathy: None. Pelvic viscera: The prostate gland is enlarged and heterogeneous noting median lobe hypertrophy. The bladder wall appears thickened and trabeculated suggesting chronic outlet obstruction. Skeletal structures: The skeletal structures are osteopenic. Mild to moderate lumbosacral spondylosis is observed. No lytic or blastic lesions are seen. There is an age indeterminant left anterior 5th r ib fracture, which is new from 11/13/2018. Additional chronic rib fractures are seen bilaterally. IMPRESSION: 1. Motion degraded examination. 2. There is mild patchy airspace consolidation in the lingula. Correlate clinically for evidence of a n infectious/inflammatory pneumonitis. 3. There is an age indeterminant left anterior 5th rib fracture which is new from 2019. This may be s ubacute or chronic. Correlate for point tenderness. 4. No acute infectious or inflammatory findings are seen in the abdomen or pelvis. 5. Bilateral nephrolithiasis. 6. Cardiomegaly. 7. Dilatation of the pulmonary trunk and mild aneurysmal dilatation of the ascending thoracic aorta a re similar to previous. 8. Additional findings as above. ACT 112: Negative or not required by law. Electronically signed by: Carlton Shen M.D. 07/26/2021 7:49 PM
[2021-07-26 19:57] LABS: Alanine Aminotransferase 32 U/L (12-78); Albumin Level 3.7 gm/dl (3.4-5.0); Aspartate Aminotransferase 20 U/L (15-37); BUN Creatinine Ratio 17.2 (10-20); Blood Urea Nitrogen 13 mg/dl (7-18); Calcium 9.3 mg/dl (8.5-10.1); Carbon Dioxide 26 mmol/L (21-32); Chloride 103 mmol/L (98-107); Est GFR (African American) 106.7 ml/min; Est GFR (Non-African American) 92.1 ml/min; Glucose 158 mg/dl (70-99); Lipase 117 U/L (73-393); Potassium 3.8 mmol/L (3.5-5.1); Sodium 137 mmol/L (136-145)
[2021-07-26 20:29] LABS: Albumin Globulin Ratio 0.9 (0.9-2); Alkaline Phosphatase 81 U/L (45-117); Globulin 4.2 gm/dl (2.5-4.0); Total Protein 7.9 gm/dl (6.4-8.2); Troponin I 0.205 ng/ml (0-0.045)
[2021-07-26] MEDS ORDERED: ASPIRIN CHEW 324 MG PO STA (20:34)
[2021-07-26 21:00] LABS: D Dimer 350 ug/L FEU (0-500)
[2021-07-26] MEDS ORDERED: LORazepam 1 MG TAB PO STA (21:22)
--- NOTE | 2021-07-26 23:42 | History & Physical Report ---
Date of Service July 26, 2021 Assessment & Plan (1) Chest pain: Plan: Mr. Bella is a 71 yo gentleman with a history of CAD and vascular risk factors who came in for evaluation of left sided chest pain. - etiology uncertain: - cardiac is possible given history of CAD, diabetes and elevated troponin. - HEART score of 5, moderate risk. initial trop 0.205. EKG with non-specific ST segment changes. - trend serial trops. resting echo ordered for am. ASA 324 given in ED. - If ACS work up is negative, consideration should be given to arrangement of outpatient stress test. - MSK also very likely given reproducible pain on exam and5th left anterior rib fracture noted on imaging. (2) Closed rib fracture: Plan: - left 5th anterior rib fracture (subacute vs. chronic) noted on CT - subacute nature consistent with history of recent fall - lidocaine patch and Tylenol ordered for analgesia - incentive spirometry - associated left lingual patchy consolidation concerning for possible developing Mr. (from atelectasis); WBC normal, afebrile. Will check a procal, if elevated will initiate antibiotics (3) Diabetes: Plan: - last A1c was above goal at 9.4 on 04/26/21 - recheck A1c - home regimen consists of Glargine insulin 12 units daily, metformin, glimepiride, and sitagliptin - hold orals while inpatient; SSI ordered - on high intensity statin - not on lyudmila/arb; consider starting at discharge (in exchange for HCTZ- triamterene combo) (4) CAD (coronary artery disease): Plan: - continue home dose ASA, plavix, lipitor (5) Hypertension: Plan: - continue home dose HCTZ-triamterene Diet: heart healthy, carb consistent DVT ppx: Lovenox Dispo: Med/tele - I ordered a 1:1 given his underlying mentation and behavioral issues Code: DNR/DNI, I discussed with family History of Present Illness Primary Care Provider: Renzo Patten MD Mr. Bella is a 71 yo gentleman with a PMHx of a silent PA and carotid artery stenosis with cerebral infarction who was brought in by his sister for evaluation of left sided flank pain that has affected him intermittently throughout the day. Of note, Mr. Bella has a learning disability and most of the history is provided by his sister. She does say that he fell several days ago and first experienced the left sided pain at this time. She also notes that Mr. Bella's stamina is less than before - ie when walking around he has to stop and catch his breath (this is different from his baseline). No history of underlying lung disease. No back pain. No nausea/vomiting or diarrhea. No black or bloody BM. No dysuria. When asked to directly point to where his pain is, Mr. Bella indicates it is over his left chest. Sx: During the day, he goes to [employer]; otherwise he lives with his sister and she is his time clerk caregiver. Brother Gene is his POA. In the ED, he was afebrile with a normal HR and O2 saturation. His CBC was n ormal, INR mildly elevated at 1.2; d-dimer not elevated, CMP WNL, trop 0.205, Lipase not elevated, COVID 19 neg. His EKG showed NSR at 72 bpm, 1st degree AV mena block, inferior q waves, non-specific changes ST segment changes in the anterior leads. CXR showed no acute disease. CT of abdomen and pelvis showed a patchy consolidation of the lingual of the left lobe, an age indeterminant 5th anterior rib fracture on the left, bilateral non-obstructing kidney stones. He was given 324mg of ASA. Allergies Allergy/AdvReac Type Severity Reaction Status Date / Time amoxicillin [From Augmentin] Allergy Unknown CAN'T Verified 07/26/21 19:04 REMEMBER clavulanic acid Allergy Unknown CAN'T Verified 07/26/21 19:04 [From Augmentin] REMEMBER Penicillins Allergy Unknown CAN'T Verified 07/26/21 19:04 REMEMBER Home Medications Medication Instructions Recorded Confirmed Type acetaminophen 500 mg tablet 1,000 mg PO DIRECTED PRN 06/25/19 07/26/21 History (Tylenol Extra Strength) aspirin 81 mg tablet,delayed 81 mg PO QPM 08/06/19 07/26/21 History release atorvastatin 40 mg tablet 40 mg PO DAILY #90 tab 02/01/21 07/26/21 Rx metformin 500 mg tablet,extended 2,000 mg PO DAILY #360 tab 02/01/21 07/26/21 Rx release 24 hr sitagliptin 100 mg tablet (Januvia) 100 mg PO DAILY #90 tab 02/01/21 07/26/21 Rx blood sugar diagnostic (FreeStyle #100 ea 05/02/21 Rx Lite Strips) clopidogrel 75 mg tablet 75 mg PO DAILY #90 tab 05/11/21 07/26/21 Rx finasteride 5 mg tablet (Proscar) 5 mg PO DAILY #90 tab 07/09/21 07/26/21 Rx triamterene 37.5 1 tab PO DAILY #90 tab 07/09/21 07/26/21 Rx mg-hydrochlorothiazide 25 mg tablet (Maxzide-25mg) glimepiride 2 mg tablet 2 mg PO DAILY 07/26/21 07/26/21 History insulin glargine 100 unit/mL (3 12 unit SUBCUT QPM 07/26/21 07/26/21 History mL) subcutaneous pen (Basaglar KwikPen U-100 Insulin) tramadol 50 mg tablet (Ultram) 50 mg PO Q8H PRN #14 tab 07/27/21 Rx 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 ([facility])- right sided residual deficit- on plavix Diabetes NIDDM Dyslipidemia GI bleed History of small bowel obstruction Hypertension Intellectual disability resides at [facility] ([place])- brother (Gene) is POA and will be present AM DOS Postop carotid endarterectomy surveillance, encounter for Urinary retention with incomplete bladder emptying Surgical History History of cholecystectomy History of colonoscopy Family History Other No pertinent family history Social History Smoking Status: Unknown if ever smoked Second Hand Exposure: No; Preferred Language: Nam[place]ian Communication Ability: Impaired Visual Impairment: No Limitations Hearing Ability: Normal 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 Beliefs That Will Affect Care: None marital status: Single Current Living Situation: Family Current Living Situation Comment: lives with sister current occupational status: other 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 [employer] Other Information That Helps Us Care for You: No Feels Safe at Home: Yes caffeine: Yes Seatbelt Use: always Sunscreen Use: Yes Assistive Devices: None Review of Systems Review of Systems: All systems reviewed & are unremarkable except as noted in HPI & below Physical Exam Constitutional: WD/WN, vitals as above cooperative; no acute distress Eyes: + anicteric sclerae ENMT: external ear and nose normal, oropharynx normal Neck: + tracheal deviation Respiratory: normal respiratory effort, lungs clear to auscultation Auscultation: + crackles (left lung base ) Cardiovascular: RRR, no murmur, no edema Heart Sounds: normal S1 and normal S2 Extremities: no pedal edema chest pain reproducible on exam Gastrointestinal (Abdomen): normal bowel sounds, soft, nontender, no hepatosplenomegaly Musculoskeletal: Head/Neck/Chest: normocephalic and head atraumatic Skin: no rashes, warm and dry Neurologic: moves all extremities Psychiatric: A+Ox3, euthymic affect Results & Data Results & Data ([facility]) Vital Signs (Past 12 Hours) Vital Signs Temp Pulse Pulse Resp BP BP Pulse Ox 07/26/21 20:55 71 19 150/100 H 95 07/26/21 18:53 73 18 157/100 H 95 07/26/21 18:04 36.9 C 80 18 161/88 H 96 Supervising Physician Co-Signing Physician Notes Attending addendum: I have physically seen this patient, have supervised the medical residents activities, and agree with the H&P unless as otherwise noted. Assessment and Plan: Chest pain/CAD/hypertension The patient will be admitted to telemetry for serial cardiac enzymes, serial EKG's, cardiac rhythm monitoring and a 2-D echocardiogram with Dopplers. Troponin detectable at 0.205 Continue triamterene/HCTZ, aspirin and clopidogrel Closed left fifth anterior rib fracture- Pain management May be causing splinting and leading to secondary lung infection is noted with lingular infiltrate follow examination closely, low threshold for beginning antibiotics Diabetes mellitus- Hold oral medications: Glimepiride, metformin, sitagliptin. Placed on Accu-Cheks before meals and at bedtime with NovoLog coverage per scale Continue glargine 12 units subcu daily Check hemoglobin A1c Remaining orders and notations as noted (1) Closed rib fracture Encounter type: initial encounter Laterality: left Rib fracture type: single rib Qualified Code(s): S22.32XA - Fracture of one rib, left side, initial encounter for closed fracture (2) Chest pain Chest pain type: unspecified Qualified Code(s): R07.9 - Chest pain, unspecified
[2021-07-27] MEDS ORDERED: GLUCOSE 40% GEL 15 GM TUBE PO PRN (00:34)
[2021-07-27] MEDS ORDERED: ACETAMINOPHEN 325 MG TAB PO PRN (00:34)
[2021-07-27] MEDS ORDERED: GLUCAGON FOR INJ 1 MG VIAL SQ PRN (00:34)
[2021-07-27] MEDS ORDERED: DEXTROSE 50% 50 ML SYRINGE IV PRN (00:34)
[2021-07-27] MEDS ORDERED: ONDANSETRON INJ 2 MG/ML 2 ML VIAL IV PRN (00:34)
[2021-07-27] MEDS ORDERED: CARBOHYDRATES FOR HYPOGLYCEMIA PO PRN (00:34)
[2021-07-27] MEDS ORDERED: POLYETHYLENE (MIRALAX) 17 GM PACK PO PRN (00:34)
[2021-07-27] MEDS ORDERED: GLUCOSE 10 TABS/TUBE PO PRN (00:34)
[2021-07-27] MEDS ORDERED: MELATONIN 3 MG TAB PO PRN (00:34)
[2021-07-27] MEDS ORDERED: INFLUENZA VACCINE HIGH DOSE PF 65+ 0.7 ML SYR IM ONE (00:54)
[2021-07-27] MEDS ORDERED: PNEUMOCOCCAL POLYSACCHARIDES 25 MCG/0.5 ML VIAL/SYR IM ONE (00:54)
[2021-07-27 07:24] LABS: Estimated Average Glucose 220 mg/dl; Hemoglobin A1C 9.3 % (4.5-5.6)
[2021-07-27] MEDS ORDERED: ATORVASTATIN 40 MG TAB PO SCH (09:00)
[2021-07-27] MEDS ORDERED: LIDOCAINE 5% 1 PATCH TD SCH (09:00)
[2021-07-27] MEDS ORDERED: TRIAMTERENE/HCTZ 37.5/25MG TAB PO SCH (09:00)
[2021-07-27] MEDS ORDERED: FINASTERIDE 5 MG TAB PO SCH (09:00)
[2021-07-27] MEDS ORDERED: CLOPIDOGREL BISULFATE 75 MG TAB PO SCH (09:00)
[2021-07-27] MEDS ORDERED: ENOXAPARIN INJ 40 MG/0.4 ML SYR SQ SCH (09:00)
[2021-07-27] MEDS: INSULIN ASPART 100 UNITS/ML 3 ML PEN SC SCH ×2 (09:07→12:18)
--- NOTE | 2021-07-27 09:40 | Electrocardiogram Report ---
Test Reason : Blood Pressure : / mmHG Vent. Rate : 072 BPM Atrial Rate : 072 BPM P-R Int : 252 ms QRS Dur : 078 ms QT Int : 382 ms P-R-T Axes : 039 026 141 degrees QTc Int : 418 ms Sinus rhythm with 1st degree A-V block possible Inferior infarct (cited on or before 14-JUN-2004) Poor R wave progression, consider anterior MN vs. lead placement vs. LVH Abnormal ECG When compared with ECG of 06-AUG-2019 12:48, Non-specific change in ST segment in Anterior leads Confirmed by Aristides Altamirano ([id number]) on 07/27/2021 9:40:35 AM Referred By: REFERRED SELF Confirmed By:Messi Altamirano
[2021-07-27 10:46] LABS: Appearance Urine Clear (Clear); Bacteria Urine Automated Negative (Negative); Bilirubin Urine Negative (Negative); Blood Urine Negative (Negative); Color Urine Yellow; Glucose Urine UA 1+ (Negative); Ketones Urine Negative (Negative); Leukocyte Esterase Urine Negative (Negative); Nitrite Urine Negative (Negative); Protein Urine Trace (Negative); RBC Urine Automated 0-4 /hpf (0-4); Specific Gravity Urine 1.021 (1.000-1.030); Urobilinogen Urine Negative (Negative); pH Urine 6.5 (4.5-7.5)
--- NOTE | 2021-07-27 15:36 | Discharge Summary ---
Date of Service July 27, 2021 Admission HPI Per Admitting Provider Mr. Bella is a 71 yo gentleman with a PMHx of a silent MS and carotid artery stenosis with cerebral infarction who was brought in by his sister for evaluation of left sided flank pain that has affected him intermittently throughout the day. Of note, Mr. Bella has a learning disability and most of the history is provided by his sister. She does say that he fell several days ago and first experienced the left sided pain at this time. She also notes that Mr. Bella's stamina is less than before - ie when walking around he has to stop and catch his breath (this is different from his baseline). No history of underlying lung disease. No back pain. No nausea/vomiting or diarrhea. No black or bloody BM. No dysuria. When asked to directly point to where his pain is, Mr. Bella indicates it is over his left chest. Sx: During the day, he goes to [employer]; otherwise he lives with his sister and she is his inspector timers caregiver. Brother Gene is his POA. In the ED, he was afebrile with a normal HR and O2 saturation. His CBC was normal, INR mildly elevated at 1.2; d-dimer not elevated, CMP WNL, trop 0.205, Lipase not elevated, COVID 19 neg. His EKG showed NSR at 72 bpm, 1st degree AV mena block, inferior q waves, non-specific changes ST segment changes in the anterior leads. CXR showed no acute disease. CT of abdomen and pelvis showed a patchy consolidation of the lingual of the left lobe, an age indeterminant 5th anterior rib fracture on the left, bilateral non-obstructing kidney stones. He was given 324mg of ASA. Principal Diagnosis Chest pain, likely from 5th rib fracture Discharge Exam General: well developed, well nourished, no acute distress, comfortable, cognitively impaired Neck: supple, trachea midline, normal thyroid Lungs: clear to auscultation bilaterally, normal respiratory effort, no accessory muscle use, no distress Heart: regular S1 and S2, no murmur, peripheral pulses normal, capillary refill normal, no edema chest - slight tenderness with palpation of anterior left chest Abdomen: soft, NT, ND, + BS, no hepatomegaly, normal to percussion Extremities: normal in appearance, no cyanosis, no petechiae, strength is 5/5 bilaterally Neuro: awake, cooperative, moves all extremities, no focal motor deficits, CN II-XII intact, sensation in extremities intact, normal speech Skin: warm, dry, no rash, normal turgor Psych: Awake, alert oriented x 3, below average intelligence, behavioral disturbances (hitting himself in the face) Discharge Data Allergies Allergy/AdvReac Type Severity Reaction Status Date / Time amoxicillin [From Augmentin] Allergy Unknown CAN'T Verified 07/26/21 19:04 REMEMBER clavulanic acid Allergy Unknown CAN'T Verified 07/26/21 19:04 [From Augmentin] REMEMBER Penicillins Allergy Unknown CAN'T Verified 07/26/21 19:04 REMEMBER Consultations 07/26/21 20:48 ED Decision to Admit Stat Ordered Studies 07/26/21 18:39 CT abd pelvis wo con Stat Diabetes Follow up Diabetes Follow-up Needed for HgbA1c >9% Hospital Course (1) Chest pain: Mr. Bella is a 71 yo gentleman with a history of CAD and vascular risk factors who came in for evaluation of left sided chest pain. - etiology uncertain: - cardiac is possible given history of CAD, diabetes and elevated troponin. - HEART score of 5, moderate risk. initial trop 0.205. EKG with non-specific ST segment changes. - troponin to 0.27 and then 0.14, no further chest pain or pressure - echocardiogram: old wall motion abnormality from prior MS, no new wall motion changes compared to prior echo, difficult images - discussed with cardiology, they would recommend a Lexiscan stress test since echo images not very good discussed with patient and family, can arrange for outpatient Lexiscan no chest pain, vitals stable, strong likelihood that chest pain due to fall and 5th rib fracture as that is when pain started discharge to home, continue antiplatelets (2) Closed rib fracture: - left 5th anterior rib fracture (subacute vs. chronic) noted on CT - subacute nature consistent with history of recent fall - lidocaine patch and Tylenol ordered for analgesia , no pain at time of discharge - incentive spirometry (3) Diabetes: - last A1c was above goal at 9.4 on 04/26/21 - recheck A1c - home regimen consists of Glargine insulin 12 units daily, metformin, glimepiride, and sitagliptin - hold orals while inpatient; SSI ordered - on high intensity statin (4) CAD (coronary artery disease): - continue home dose ASA, Plavix, Lipitor (5) Hypertension: - continue home dose HCTZ-triamterene Diet: heart healthy, carb consistent DVT ppx: Lovenox Dispo: Med/tele - I ordered a 1:1 given his underlying mentation and behavioral issues Code: DNR/DNI, I discussed with family Total Time Total Time Spent Total Time Spent (In Minutes): 33 Discharge Plan Discharge Items Patient Disposition: Home - Self-Care Reason For Visit: CHEST PAIN Discharge Diagnosis: Chest pain, likely from rib fracture Condition on Discharge: Good Goals: follow up with lexiscan stress test as outpatient Activity: Resume your previous activity Non-emergency contact: Primary Care Provider Call non-emergency contact if: you have any medication questions Follow-up/Referrals: Renzo Patten MD [Primary Care Provider] - (one week) Diet: Carb Consistent or DM2 and Heart Healthy Addtl Attending Provider Instructions: Medications: - ULTRAM: only fill if pain not controlled by Tylenol and/or Motrin Left chest pain, likely from left 5th rib fracture minimal elevation in troponin (heart enzyme) no wall motion changes on echo recommend getting outpatient Lexiscan (nuclear) stress test, your PCP can order this at your convenience for the pain, use Tylenol 650mg every 6 hours as needed, can supplement with Motrin 600mg every 6 hours but take this with food if pain is still intense, can fill prescription for Ultram 50mg every 8 hours Pending Studies at Discharge: No Stand-Alone Forms: [facility] paymio, Smoking Cessation Medications and DC Order Prescriptions: New tramadol [Ultram] 50 mg tablet 50 mg PO Q8H PRN (Reason: pain) Qty: 14 RF: 0 Continued acetaminophen [Tylenol Extra Strength] 500 mg tablet 1,000 mg PO DIRECTED PRN (Reason: Pain) RF: 0 atorvastatin 40 mg tablet 40 mg PO DAILY Qty: 90 RF: 3 metformin 500 mg tablet extended release 24 hr 2,000 mg PO DAILY Qty: 360 RF: 3 Januvia 100 mg tablet 100 mg PO DAILY Qty: 90 RF: 3 (DME) FreeStyle Lite Strips Strip See Rx Instructions .ROUTE .MEDSUPPLY Qty: 100 RF: 3 clopidogrel 75 mg tablet 75 mg PO DAILY Qty: 90 RF: 3 triamterene-hydrochlorothiazid [Maxzide-25mg] 37.5-25 mg tablet 1 tab PO DAILY Qty: 90 RF: 3 finasteride [Proscar] 5 mg tablet 5 mg PO DAILY Qty: 90 RF: 3 aspirin 81 mg Tablet,Delayed Release (Dr/Ec) 81 mg PO QPM RF: 0 glimepiride 2 mg tablet 2 mg PO DAILY RF: 0 Basaglar KwikPen U-100 Insulin 100 unit/mL (3 mL) insulin pen 12 unit subcut QPM RF: 0 Discharge Orders: Discharge Order (Routine); Ordered 07/27/21 Ordered By: Erasmo Dominguez Admission Data Admit Date/Time: 07/26/21 21:21 Attending Provider: Erasmo Dominguez Admit Provider: Lourdes Tejeda Primary Care Provider: Renzo Patten Other Providers: Seferino Hidalgo Other Interventions: Discharge Summary Assessment (RN) Last Done: 07/27/21 15:34 Coding Level of Care Code 87078 OBS Care - Discharge Diagnoses Chest pain R07.9 Chest pain type: unspecified Closed rib fracture S22.32XA Encounter type: initial encounter Laterality: left Rib fracture type: single rib Diabetes E11.9 CAD (coronary artery disease) I25.10 Hypertension I10
--- NOTE | 2021-07-27 16:45 | XCELERA ---
[id number]
--- NOTE | 2021-07-27 18:10 | Electrocardiogram Report ---
Test Reason : Blood Pressure : / mmHG Vent. Rate : 081 BPM Atrial Rate : 078 BPM P-R Int : 000 ms QRS Dur : 080 ms QT Int : 400 ms P-R-T Axes : 000 004 160 degrees QTc Int : 464 ms Poor data quality, interpretation may be adversely affected Sinus rhythm with 1st degree AV block Inferior infarct (cited on or before 14-JUN-2004) Abnormal ECG Confirmed by Aristides Altamirano ([id number]) on 07/27/2021 6:09:46 PM Referred By: REFERRED SELF Confirmed By:Messi Altamirano
[2021-07-27] MEDS ORDERED: ASPIRIN 81 MG ECTAB PO SCH (21:00)
[2021-07-27] MEDS ORDERED: INSULIN GLARGINE SOLOSTAR 100 UNITS/ML 3 ML PEN SQ SCH (21:00)
--- NOTE | 2021-07-27 22:15 | Billing Data ---
Date of Service July 27, 2021 Coding Level of Care Code INT OBSERVATION CARE 72M LVL 3
== END 2021-07-27 16:24 | disposition home or self-care (01) ==
LOC: 2N 17:54 → ED 17:54 → SUATTDRO 21:21 → 2N 23:38

== ENCOUNTER 2022-11-21 15:56 | Inpatient (IN) ==
--- NOTE | 2022-11-21 16:25 | Emergency Department Note ---
Impression & Plan Acute non-ST elevation myocardial infarction (NSTEMI), Pulmonary edema ED Provider Note NAME: AMANDO BLANDON AGE: 72 SEX: M : 1950 ARRIVES VIA: Walk-In INFORMANT: Patient, the patient's sister ED PROVIDER(S): Jossue Velasquez DO CHIEF COMPLAINT: Shortness of breath HPI: The patient is a 72-year-old male who presented to the emergency department for an evaluation of difficulty breathing. The patient started experiencing difficulty breathing over the course the last few months. The patient states that he has no chest pain but his sister does give most of the history. Apparently the patient has intellectual disability. He is helped mostly by his sister who did accompany him to the emergency department. He has had a cough especially at night. He is also been noted to have lower extremity swelling. He was seen in our facility previously. He was given Lasix for presumed pulmonary edema. The patient was doing well but then over the last few days she noticed that he has been coughing more at night especially when he lies flat. There is been no vomiting. There is been no rectal bleeding. They saw their family doctor and discussed follow-up with cardiology however they feel that this is difficult given the patient's intellectual disability and he may need to stay in 1 position for a long time and he may not do well with this. ROS: See above HPI for pertinent positives & negatives. A total of 10 systems reviewed and were otherwise negative. PAST MEDICAL HISTORY: See Below PAST SURGICAL HISTORY: See Below FAMILY HISTORY: See Below SOCIAL HISTORY: See Below HOME MEDICATIONS: See Below ALLERGIES: See Below VITALS: See Below PHYSICAL EXAMINATION: GENERAL: Patient is awake alert in no acute distress patient is resting comfortably and showing no signs of anxiety EYES: The conjunctivae are clear. The pupils are round and reactive. EARS, NOSE, MOUTH AND THROAT: The nose is without any evidence of any deformity. NECK: The neck is nontender and supple. RESPIRATORY: Diminished breath sounds were noted both bases CARDIOVASCULAR: Regular rate and rhythm noted there no murmurs rubs or gallops normal S1 normal S2. GASTROINTESTINAL: The abdomen is soft. Abdomen is nontender. MUSCULOSKELETAL/EXTREMITIES: There is no evidence of gross deformity full range of motion is noted in the hips and shoulders. SKIN: Pedal edema was noted bilaterally. Skin was warm and dry. NEUROLOGIC: Patient is awake alert and oriented to person place and situation. He recognizes his sister. Strength was symmetric. MEDICAL DECISION MAKING: The patient is a 72-year-old male who presented to the emergency department with his sister for an evaluation of difficulty breathing. The patient was seen in our facility recently for similar complaints. At that time the patient was treated with Lasix and was doing well. The patient presents back to the [facility] department today because of ongoing symptoms. The patient was not hypoxic but did appear to have physical exam consistent with volume overload. He was treated with Lasix. EKG showed subtle changes but mostly was similar to previous. The patient's troponin was elevated. For this reason I discussed his condition with the on-call [facility] hospitalist. He was also treated with aspirin. The patient offers no complaints of chest pain but because of his intellectual disability it is difficult to determine if this is ischemic in nature. I discussed patient's laboratory and radiographic studies with him and his sister. Triage Nursing notes reviewed. Prior medical records reviewed Vital Signs: reviewed and remarkable for elevated blood pressure. Differential diagnosis: Reactive airway disease, pneumonia, pneumothorax, COPD, CHF, infections, cardiac ischemia, pulmonary embolism, musculoskeletal, gastrointestinal, as well as other pathologies. ER treatment provided: See below Diagnostics interpreted by me: ECG: EKG was obtained in the emergency department. My interpretation is sinus rhythm at 84 bpm. First-degree AV block is noted. PVCs were noted. Lateral ST depressions with T wave abnormalities were noted. This was compared to a tracing from July 27, 2001. No significant changes were noted. Cardiac Monitoring: An order was placed for continuous cardiac monitoring. The monitor shows a rate of 76 bpm with sinus rhythm. Laboratory studies: As stated above and show below. Imaging studies: See below. Radiographic imaging was reviewed by myself Consultation(s): I discussed this case with Hector who is on for the [facility] hospitalist group. 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 Beliefs That Will Affect Care: None marital status: Single Current Living Situation: Family Current Living Situation Comment: lives with sister current occupational status: other 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 Feels Safe at Home: Yes caffeine: Yes Seatbelt Use: always Sunscreen Use: Yes Assistive Devices: None Allergies Allergies Allergy/AdvReac Type Severity Reaction Status Date / Time amoxicillin [From Augmentin] Allergy Unknown CAN'T Verified 11/13/22 15:08 REMEMBER clavulanic acid Allergy Unknown CAN'T Verified 11/13/22 15:08 [From Augmentin] REMEMBER Penicillins Allergy Unknown CAN'T Verified 11/13/22 15:08 REMEMBER Home Meds Home Medications Medication Instructions Recorded Confirmed acetaminophen 500 mg tablet 1,000 mg PO DIRECTED PRN Pain 06/25/19 11/21/22 (Tylenol Extra Strength) aspirin 81 mg tablet,delayed 81 mg PO QPM 08/06/19 11/21/22 release glimepiride 2 mg tablet 2 mg PO QAM 11/21/22 11/21/22 Previous Rx's Medication Instructions Recorded atorvastatin 40 mg tablet 40 mg PO DAILY #90 tabs 01/07/22 metformin 500 mg tablet,extended 2,000 mg PO DAILY #360 tabs 01/07/22 release 24 hr sitagliptin phosphate 100 mg 100 mg PO DAILY #90 tabs 01/07/22 tablet (Januvia) insulin glargine 100 unit/mL (3 14 unit (0.14 mL) subcut QPM #15 mL 04/12/22 mL) subcutaneous pen (Basaglar KwikPen U-100 Insulin) clopidogrel 75 mg tablet 75 mg PO DAILY #90 tabs 04/30/22 pen needle, diabetic 31 gauge x #100 ea 05/08/2216" (1st Tier Unifine Pentips) finasteride 5 mg tablet (Proscar) 5 mg PO DAILY #90 tabs 06/10/22 triamterene 37.5 1 tab PO DAILY #90 tabs 06/10/22 mg-hydrochlorothiazide 25 mg tablet (Maxzide-25mg) nystatin 100,000 unit/gram topical 1 applic topical BID PRN rash #30 07/18/22 powder grams buspirone 10 mg tablet 10 mg PO TID PRN anxiety 90 days 11/14/22 #270 tabs furosemide 20 mg tablet (Lasix) 20 mg PO DAILY #15 tabs 11/14/22 blood sugar diagnostic (FreeStyle #100 strips 11/21/22 Lite Strips) Results & Data (ED) Vital Signs Vital Signs - 24 hr 11/21/22 15:59 11/21/22 16:09 11/21/22 16:11 Temperature 36.4 C L Temperature Source Temporal Artery Scan Pulse Rate 78 83 Respiratory Rate 18 18 Respiratory Effort / Characteristics Non-Labored Non-Labored Respiratory Depth Normal Normal Respiratory Pattern Regular Blood Pressure 125/72 Blood Pressure Mean 89 Pulse Oximetry 95 99 Oxygen Delivery Method Room Air Room Air Sepsis Recent Fever Within 48 Hours No Sepsis New/Unexplained Change in Mental Status No Sepsis Action Taken by Nursing No Action Required 11/21/22 16:21 11/21/22 16:10 11/21/22 16:30 Temperature Temperature Source Pulse Rate 85 76 Respiratory Rate 22 22 Respiratory Effort / Characteristics Respiratory Depth Respiratory Pattern Blood Pressure 137/62 163/107 H Blood Pressure Mean 87 125 Pulse Oximetry 98 97 97 Oxygen Delivery Method Room Air Sepsis Recent Fever Within 48 Hours Sepsis New/Unexplained Change in Mental Status Sepsis Action Taken by [facility] Medications Current Medication List: was personally reviewed by me Laboratory Data Attestation: I reviewed the patient's lab results. 11/21/22 16:21 11/21/22 16:21 Lab Results 11/21/22 11/21/22 11/21/22 Range/Units 16:21 16:21 16:21 WBC 8.38 (4.8-10.8) K/ul RBC 5.26 (4.70-6.10) M/uL Hgb 15.9 (14.0-18.0) g/dl Hct 46.9 (42.0-52.0) % MCV 89.2 (80.0-100.0) fL MCH 30.2 (25.0-34.0) pg MCHC 33.9 (32.0-36.0) g/dL RDW Std Deviation 48.5 H (36.4-46.3) fL RDW Coeff of Ludin 14.8 H (11.5-14.5) % Plt Count 143 (130-400) K/uL MPV 11.4 (9.4-12.4) fL Immature Gran % (Auto) 0.6 % Neut % (Auto) 69.7 % Lymph % (Auto) 19.3 % Cottle % (Auto) 8.7 % Eos % (Auto) 1.3 % Baso % (Auto) 0.4 % Neut # (Auto) 5.84 (1.40-6.50) K/uL Lymph # (Auto) 1.62 (1.2-3.4) K/uL Cottle # (Auto) 0.73 H (0.11-0.59) K/uL Eos # (Auto) 0.11 (0-0.50) K/uL Baso # (Auto) 0.03 (0-0.2) K/uL Immature Gran # (Auto) 0.05 (0.01-0.20) K/uL PT 14.4 H (9.0-12.0) Seconds INR 1.4 H (0.9-1.1) APTT 28.6 (21.0-31.0) Seconds PTT Ratio 1.0 Sodium 137 (136-145) mmol/L Potassium 4.6 (3.5-5.1) mmol/L Chloride 101 (98-107) mmol/L Carbon Dioxide 29 (21-32) mmol/L Anion Gap 7 (3-11) BUN 22 (6-23) mg/dl Creatinine 0.90 (0.6-1.4) mg/dl Est Cr Clr Drug Dosing Not Reportable Est GFR ( Amer) 99.9 ml/min Est GFR (Non-Af Amer) 86.2 ml/min BUN/Creatinine Ratio 24.4 H (10-20) Glucose 129 H (70-99(Fasting)) mg/dl Calcium 10.6 H (8.5-10.1) mg/dl Magnesium 1.9 (1.7-2.4) mg/dl Total Bilirubin 2.2 H (0.2-1.0) mg/dl AST 33 (13-39) U/L ALT 34 (7-52) U/L Alkaline Phosphatase 102 (34-104) U/L Troponin I High Sens 200.3 H* (0-20) pg/ml B-Natriuretic Peptide (0-100) pg/ml Total Protein 8.2 (6.0-8.3) gm/dl Albumin 4.6 (3.4-5.0) gm/dl Globulin 3.6 (2.5-4.0) gm/dl Albumin/Globulin Ratio 1.3 (0.9-2) SARS-CoV-2 (PCR) (Negative) Influenza Type A (PCR) (Neg) Influenza Type B (PCR) (Neg) RSV (RT-PCR) (Neg) 11/21/22 11/21/22 Range/Units 16:21 16:35 WBC (4.8-10.8) K/ul RBC (4.70-6.10) M/uL Hgb (14.0-18.0) g/dl Hct (42.0-52.0) % MCV (80.0-100.0) fL MCH (25.0-34.0) pg MCHC (32.0-36.0) g/dL RDW Std Deviation (36.4-46.3) fL RDW Coeff of Ludin (11.5-14.5) % Plt Count (130-400) K/uL MPV (9.4-12.4) fL Immature Gran % (Auto) % Neut % (Auto) % Lymph % (Auto) % Cottle % (Auto) % Eos % (Auto) % Baso % (Auto) % Neut # (Auto) (1.40-6.50) K/uL Lymph # (Auto) (1.2-3.4) K/uL Cottle # (Auto) (0.11-0.59) K/uL Eos # (Auto) (0-0.50) K/uL Baso # (Auto) (0-0.2) K/uL Immature Gran # (Auto) (0.01-0.20) K/uL PT (9.0-12.0) Seconds INR (0.9-1.1) APTT (21.0-31.0) Seconds PTT Ratio Sodium (136-145) mmol/L Potassium (3.5-5.1) mmol/L Chloride (98-107) mmol/L Carbon Dioxide (21-32) mmol/L Anion Gap (3-11) BUN (6-23) mg/dl Creatinine (0.6-1.4) mg/dl Est Cr Clr Drug Dosing Est GFR ( Amer) ml/min Est GFR (Non-Af Amer) ml/min BUN/Creatinine Ratio (10-20) Glucose (70-99(Fasting)) mg/dl Calcium (8.5-10.1) mg/dl Magnesium (1.7-2.4) mg/dl Total Bilirubin (0.2-1.0) mg/dl AST (13-39) U/L ALT (7-52) U/L Alkaline Phosphatase (34-104) U/L Troponin I High Sens (0-20) pg/ml B-Natriuretic Peptide 877 H (0-100) pg/ml Total Protein (6.0-8.3) gm/dl Albumin (3.4-5.0) gm/dl Globulin (2.5-4.0) gm/dl Albumin/Globulin Ratio (0.9-2) SARS-CoV-2 (PCR) NEGATIVE (Negative) Influenza Type A (PCR) Negative (Neg) Influenza Type B (PCR) Negative (Neg) RSV (RT-PCR) Negative (Neg) Imaging Data Radiologist's Impression: Chest X-Ray 11/21/22 16:15 SINGLE VIEW CHEST CLINICAL HISTORY: Dyspnea FINDINGS: An AP, portable, upright chest radiograph is compared to study dated 11/08/2022. The heart is enlarged noting atherosclerotic calcification of the thoracic aorta. There is pulmonary vascular congestion. There are low lung volumes with chronic elevation of the left hemidiaphragm. Scarring/atelectasis is noted at the lung bases. Small pleural effusions are suspected. No pneumothorax is seen. The skeletal structures are osteopenic. The bony thorax is grossly intact. Cholecystectomy clips are noted in the right upper quadrant. IMPRESSION: 1. Cardiomegaly with evidence of congestive failure. 2. Suspect small pleural effusions. ACT 112: Negative or not required by law. Electronically signed by: Carlton Shen M.D. 11/21/2022 4:57 PM Discharge Plan Visit Data Chief Complaint: Weakness Stated Complaint: NOT EATING MUCH,UNABLE TO STAND ON LEGS,COUGH,SOB ED Provider: Jossue Velasquez Discharge Problem: Acute non-ST elevation myocardial infarction (NSTEMI), Pulmonary edema Patient Disposition: Being Evaluated by Hospitalist Forms Stand Alone Forms: My [facility] Prescriptions Prescriptions: No Action acetaminophen [Tylenol Extra Strength] 500 mg tablet 1,000 mg PO DIRECTED PRN (Reason: Pain) atorvastatin 40 mg tablet 40 mg PO DAILY Qty: 90 3RF Januvia 100 mg tablet 100 mg PO DAILY Qty: 90 3RF metformin 500 mg tablet extended release 24 hr 2,000 mg PO DAILY Qty: 360 3RF insulin glargine [Basaglar KwikPen U-100 Insulin] 100 unit/mL (3 mL) insulin pen 14 unit subcut QPM Qty: 15 3RF clopidogrel 75 mg tablet 75 mg PO DAILY Qty: 90 3RF (DME) pen needle, diabetic [1st Tier Unifine Pentips] 31 gauge x 5/16" needle See Rx Instructions .Route Qty: 100 3RF Rx Instructions: uses one daily finasteride [Proscar] 5 mg tablet 5 mg PO DAILY Qty: 90 3RF triamterene-hydrochlorothiazid [Maxzide-25mg] 37.5-25 mg tablet 1 tab PO DAILY Qty: 90 3RF nystatin 100,000 unit/gram powder 1 applic topical BID PRN (Reason: rash ) Qty: 30 2RF Rx Instructions: 2 bottles buspirone 10 mg tablet 10 mg PO TID PRN (Reason: anxiety) 90 Days Qty: 270 3RF furosemide [Lasix] 20 mg tablet 20 mg PO DAILY Qty: 15 1RF (DME) FreeStyle Lite Strips Strip See Rx Instructions .ROUTE .COMPLEX Qty: 100 3RF Dose Instruction: TESTING 1 TIME DAILY Rx Instructions: TESTING 1 TIME DAILY aspirin 81 mg Tablet,Delayed Release (Dr/Ec) 81 mg PO QPM glimepiride 2 mg tablet 2 mg PO QAM Referrals Referrals: Renzo Patten MD [Primary Care Provider] -
[2022-11-21 16:55] LABS: Basophils # (auto) 0.03 K/uL (0-0.2); Basophils % (auto) 0.4 %; Eosinophils # (auto) 0.11 K/uL (0-0.50); Eosinophils % (auto) 1.3 %; Hematocrit (blood only) 46.9 % (42.0-52.0); Hemoglobin 15.9 g/dl (14.0-18.0); Immature Granulocytes # (auto) 0.05 K/uL (0.01-0.20); Immature Granulocytes % (auto) 0.6 %; Lymphocytes # (auto) 1.62 K/uL (1.2-3.4); Lymphocytes % (auto) 19.3 %; Mean Corpuscular Hemoglobin 30.2 pg (25.0-34.0); Mean Corpuscular Hgb Conc 33.9 g/dL (32.0-36.0); Mean Corpuscular Volume 89.2 fL (80.0-100.0); Mean Platelet Volume 11.4 fL (9.4-12.4); Monocytes # (auto) 0.73 K/uL (0.11-0.59); Monocytes % (auto) 8.7 %; Neutrophils # (auto) 5.84 K/uL (1.40-6.50); Neutrophils % (auto) 69.7 %; Platelet Count 143 K/uL (130-400); RDW Coefficient of Variation 14.8 % (11.5-14.5); RDW Standard Deviation 48.5 fL (36.4-46.3); Red Blood Count 5.26 M/uL (4.70-6.10); White Blood Count 8.38 K/ul (4.8-10.8)
--- NOTE | 2022-11-21 16:58 | XRay Report ---
SINGLE VIEW CHEST CLINICAL HISTORY: Dyspnea FINDINGS: An AP, portable, upright chest radiograph is compared to study dated 11/08/2022. The heart i s enlarged noting atherosclerotic calcification of the thoracic aorta. There is pulmonary vascular co ngestion. There are low lung volumes with chronic elevation of the left hemidiaphragm. Scarring/atele ctasis is noted at the lung bases. Small pleural effusions are suspected. No pneumothorax is seen. Th e skeletal structures are osteopenic. The bony thorax is grossly intact. Cholecystectomy clips are no diane in the right upper quadrant. IMPRESSION: 1. Cardiomegaly with evidence of congestive failure. 2. Suspect small pleural effusions. ACT 112: Negative or not required by law. Electronically signed by: Carlton Shen M.D. 11/21/2022 4:57 PM
[2022-11-21 17:16] LABS: Alanine Aminotransferase 34 U/L (7-52); Albumin Globulin Ratio 1.3 (0.9-2); Albumin Level 4.6 gm/dl (3.4-5.0); Alkaline Phosphatase 102 U/L (34-104); Anion Gap 7 (3-11); Aspartate Aminotransferase 33 U/L (13-39); BUN Creatinine Ratio 24.4 (10-20); Bilirubin,Total 2.2 mg/dl (0.2-1.0); Blood Urea Nitrogen 22 mg/dl (6-23); Calcium 10.6 mg/dl (8.5-10.1); Carbon Dioxide 29 mmol/L (21-32); Chloride 101 mmol/L (98-107); Est GFR (African American) 99.9 ml/min; Est GFR (Non-African American) 86.2 ml/min; Globulin 3.6 gm/dl (2.5-4.0); Glucose 129 mg/dl (70-99(Fasting)); Magnesium 1.9 mg/dl (1.7-2.4); Potassium 4.6 mmol/L (3.5-5.1); Sodium 137 mmol/L (136-145); Total Protein 8.2 gm/dl (6.0-8.3)
[2022-11-21 17:26] LABS: INR 1.4 (0.9-1.1); Partial Thromboplastin Time 28.6 Seconds (21.0-31.0); Prothrombin Time 14.4 Seconds (9.0-12.0)
[2022-11-21 17:28] LABS: Troponin I High Sensitivity 200.3 pg/ml (0-20)
[2022-11-21 17:31] LABS: Influenza A virus by PCR Negative (Neg); Influenza B virus by PCR Negative (Neg); RSV by PCR Negative (Neg); SARS CoV2 RNA(COVID-19) Ceph NEGATIVE (Negative)
[2022-11-21] MEDS ORDERED: FUROSEMIDE 40 MG/4 ML VIAL IV ONE (17:32)
[2022-11-21] MEDS ORDERED: ASPIRIN CHEW 324 MG PO STA (17:32)
--- NOTE | 2022-11-21 17:45 | History & Physical Report ---
Date of Service November 21, 2022 Assessment & Plan (1) Elevated troponin: Plan: -Admit to the PCU -The patient is currently afebrile, hemodynamically stable and stable on RA -The patient presented today with ongoing MCKEON, LE edema, and a non-productive cough. Chest xray was noted to have evidence of CHF with BL small plural effusions. -BNP was elevated at 877 with initial high sensitivity trop of 200 -The patient is without chest pain and subjective SOB at rest, sister states that he has been having progressive MCKEON and only able to walk short distances at this time -His current status and troponin elevation is likely a NSTEMI due to demand for CHF failure -NO acute ECG changes noted -Will repeat another high sensitivity trop now and then trend q6h overnight -Monitor on tele and pulse oximetry -Was given 324 mg PO aspirin and 40 mg IV lasix in the ED -Continue with 20 mg IV lasix BID starting tomorrow morning -Will obtain a TTE tomorrow as he is due for a repeat and his sister is unable to take him for an outpatient appointment -BL SCDs and Sub-Q lovenox for DVT PPX -AM CBC, CMP, Mag, PT/INR (2) Pulmonary edema: Plan: -See NSTEMI -Patient has been on Triamterene-HCTZ with once weekly PO lasix -Continue with BID IV lasix for now, follow TTE tomorrow -Will likely need to be discharged on daily lasix as it will be difficult to control his salt intake with is baseline intellectual disablilities (3) Hypertension: Plan: -Stable -Continue Diuretics (4) Elevated bilirubin: Plan: -Total bili elevated today at 2.2, all other LFTs WNL, patient is without abdominal discomfort -INR elevated at 1.4 -Could be a component of liver congestion from his CHF -Monitor am CMP (5) Dyslipidemia: Plan: -Conitnue statin (6) Diabetes: Plan: -Hold home antihyperglycemics -Will start with 5 units lantus BID, correction factor of 50 and carb ratio of 15 -Monitor BSG ACHS with goal of 110-160 -DM II diet with 2gm sodium restriction and 2L fluid restriction (7) CVA (cerebrovascular accident): Plan: -Continue aspirin and plavix (8) Intellectual disability: Plan: -Continue TID prn buspar for anxiety -Will order 2.5 mg IM Zyprexa q4h prn for agitation/aggression (9) CAD (coronary artery disease): Plan: -Continue aspirin Plan The patient was discussed with Dr. Finch at the time of the admission History of Present Illness Chief Complaint: Shortness of breath Primary Care Provider: Renzo Patten MD Allen is a 72 year old male with a PMH significant for intellectual disability, HFpEF (LVEF of 50-55% and mod aortic sclerosis as of 07/27/21), HTN, dyslipidemia, DM II, previous CVA, carotid artery stenosis, and previous seizures who presented to the [facility] ED on 11/21/22 with a chief complaint of worsening SOB. Per chart review, the patient was last seen in the [facility] ED on 11/08/22 for lower extremity edema and SOB. His workup revealed pulmonary vascular congestion without overt pulmonary edema. He was given IV lasix and then discharged on a 5 day course of 20 mg PO lasix. He was seen by his PCP on 11/13/22 for follow-up. Per the clinic note, the patient's edema and SOB improved with the PO lasix. Per the clinic note the patient consumes large quantities of salt with meals and eats lots of salty snacks. At the visit his PCP recommended reducing his salt intake, compression stockings, and leg elevation. They wanted to see how he would do off of diuretics before starting him on regular doses. In the ED today the patient was found to be afebrile, hemodynamically stable, and stable on RA. Labs were remarkable for a CBC WNL, INR of 1.4, stable Cr at 0.90, glucose of 129, calcium of 10.6, total bili of 2.2 otherwise stable LFTs, BNP of 877 (No previous values to compare to), inial high sensitivity trop of 200, and covid/influenza/RSV negative. Chest xray was read as "1. Cardiomegaly with evidence of congestive failure. 2. Suspect small pleural effusions.". Prior to admission the patient was given 40 mg IV lasix and 324 mg PO Aspirin. At the time of the exam the patient was sitting comfortably in bed in no acute distress with his sister/primary caregiver sitting bedside, history was obtained from the patient's sister due to his baseline mental status. She states that since his last ED visit he has continued to have issues with LE swelling, a non-productive cough, and progressive dyspnea on exertion. She states that the initial 5 day course of lasix improved most of hs symptoms. She explained that the patient is still taking triamterene-HCTZ as prescribed, his PCP gave them a prescription for one weekly PO lasix at 20 mg. She last gave him a dose on 11/16/22. She confirms that he prefers salty foods and also puts salt on all of his meals, this is hard to control. She does not like it when they try to elevate his legs. He has been having progressive generalized weakness in his BL LE's causing him to be less steady on his feet but he has not sustained a recent fall. When asked, they deny recent fevers, chills, chest pain, abdominal pain, nausea, vomiting, diarrhea, dysuria, hematuria, and recent falls. His sister exaplains that the patient often gets upset and agitated when he has to stay in the hospital. She states that when he has been admitted in the past he has had to receive IM medications to keep him calm. We discussed code status, his sister wishes him to be a DNR/DNI. Please refer to Dr. Finch's attetsation for any changes to the treatment plan Allergies Allergy/AdvReac Type Severity Reaction Status Date / Time amoxicillin [From Augmentin] Allergy Unknown CAN'T Verified 11/13/22 15:08 REMEMBER clavulanic acid Allergy Unknown CAN'T Verified 11/13/22 15:08 [From Augmentin] REMEMBER Penicillins Allergy Unknown CAN'T Verified 11/13/22 15:08 REMEMBER Home Medications Medication Instructions Recorded Confirmed Type acetaminophen 500 mg tablet 1,000 mg PO DIRECTED PRN Pain 06/25/19 11/21/22 History (Tylenol Extra Strength) aspirin 81 mg tablet,delayed 81 mg PO QPM 08/06/19 11/21/22 History release atorvastatin 40 mg tablet 40 mg PO DAILY #90 tabs 01/07/22 11/21/22 Rx metformin 500 mg tablet,extended 2,000 mg PO DAILY #360 tabs 01/07/22 11/21/22 Rx release 24 hr sitagliptin phosphate 100 mg 100 mg PO DAILY #90 tabs 01/07/22 11/21/22 Rx tablet (Januvia) insulin glargine 100 unit/mL (3 14 unit (0.14 mL) subcut QPM #15 mL 04/12/22 11/21/22 Rx mL) subcutaneous pen (Basaglar KwikPen U-100 Insulin) clopidogrel 75 mg tablet 75 mg PO DAILY #90 tabs 04/30/22 11/21/22 Rx pen needle, diabetic 31 gauge x #100 ea 05/08/22 11/21/22 Rx 5/16" (1st Tier Unifine Pentips) finasteride 5 mg tablet (Proscar) 5 mg PO DAILY #90 tabs 06/10/22 11/21/22 Rx triamterene 37.5 1 tab PO DAILY #90 tabs 06/10/22 11/21/22 Rx mg-hydrochlorothiazide 25 mg tablet (Maxzide-25mg) nystatin 100,000 unit/gram topical 1 applic topical BID PRN rash #30 07/18/22 11/21/22 Rx powder grams buspirone 10 mg tablet 10 mg PO TID PRN anxiety 90 days 11/14/22 11/21/22 Rx #270 tabs furosemide 20 mg tablet (Lasix) 20 mg PO DAILY #15 tabs 11/14/22 11/21/22 Rx blood sugar diagnostic (FreeStyle #100 strips 11/21/22 11/21/22 Rx Lite Strips) glimepiride 2 mg tablet 2 mg PO QAM 11/21/22 11/21/22 History Past Med/Surg History Medical History Abnormal EKG Carotid artery stenosis with cerebral infarction CVA (cerebrovascular accident) 06/28/19: Posterior left hemispheric multifocal infarct s/p tPA ([facility])- right sided residual deficit- on plavix Diabetes NIDDM Dyslipidemia Elevated troponin I level GI bleed History of small bowel obstruction Hypertension Intellectual disability resides with his sister. brother (Gene) is POA Postop carotid endarterectomy surveillance, encounter for Urinary retention with incomplete bladder emptying Surgical History History of cholecystectomy History of colonoscopy Family History Other No pertinent family history Social History Smoking Status: Never smoker Second Hand Exposure: No; Do You Dip or Chew Tobacco: No; Tobacco Cessation Education Requested by Patient: No Hx Alcohol Use: No Hx Substance Use: No Preferred Language: [place] Communication Ability: Impaired Visual Impairment: No Limitations Hearing Ability: Normal Sales Order Processor Required: No Beliefs That Will Affect Care: None marital status: Single Current Living Situation: Family and Legal Guardian Current Living Situation Comment: lives with Sister current occupational status: other 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 [employer] Other Information That Helps Us Care for You: No Feels Safe at Home: Yes Safety Concerns: Feels Safe At This Time caffeine: Yes Seatbelt Use: always Sunscreen Use: Yes Assistive Devices: Walker Review of Systems Review of Systems: Denies current fever, chills, headache, changes in vision, hearing, taste, and s ronald, chest pain, abdominal pain, nausea, vomiting, diarrhea, hematemesis, melena, dysuria, hematuria, and recent falls. All systems have been reviewed and are otherwise negative. Physical Exam Physical Exam: Physical Exam: General: In no acute distress, stated age, chronically ill-appearing, non- toxic appearing HEENT: Normocephalic, atraumatic, no scleral icterus, pupils around round, symmetrical, and reactive to light, moist mucus membranes, trachea midline, no thyromegaly Chest/Pulm: No respiratory distress, symmetrical chest expansion, crackles and BL expiratory wheezing noted in the middle and upper lung jaquez, decreased breath sounds in the BL lower lung jaquez Cardiac: RRR, no murmurs noted Abdomen: Negative for ascites and bruising, normoactive bowel sounds, soft, non-tender to palpation throughout Musculoskeletal: Symmetrical and without signs of acute trauma, upper and lower extremities with full ROM, no atrophy, spasticity, or flaccidity Extremities: Radial, dorsalis pedis, and posterior tibial pulses are intact and symmetrical, 2+ pitting edema noted in the BL LE's Skin: Patient with symmetrical erythema in the BL LE's consistent with venous stasis, extensive healing/scabbed abrasions and cuts on the BL LE's, no signs of infection or drainage Neuro: Alert oriented to self, no focal defects and symmetrical strength in the BL Upper and lower extremities Psych: Patient is mildly anxious during my exam but is not aggressive and is cooperative during the exam/follows commands Results & Data Results & Data ([facility]) Vital Signs (Past 12 Hours) Vital Signs Temp Pulse Resp BP Pulse Ox O2 Del Method 11/21/22 16:30 76 22 163/107 H 97 11/21/22 16:10 85 22 137/62 97 11/21/22 16:21 98 Room Air 11/21/22 16:11 83 11/21/22 16:09 18 99 Room Air 11/21/22 15:59 36.4 C L 78 18 125/72 95 Room Air Laboratory Results Abnormal lab results 11/21/22 11/21/22 11/21/22 Range/Units 16:21 16:21 16:21 RDW Std Deviation 48.5 H (36.4-46.3) fL RDW Coeff of Ludin 14.8 H (11.5-14.5) % Garrett # (Auto) 0.73 H (0.11-0.59) K/uL PT 14.4 H (9.0-12.0) Seconds INR 1.4 H (0.9-1.1) BUN/Creatinine Ratio 24.4 H (10-20) Glucose 129 H (70-99(Fasting)) mg/dl POC Glucose (70-99) mg/dl Calcium 10.6 H (8.5-10.1) mg/dl Total Bilirubin 2.2 H (0.2-1.0) mg/dl Troponin I High Sens 200.3 H* (0-20) pg/ml B-Natriuretic Peptide (0-100) pg/ml 11/21/22 11/21/22 Range/Units 16:21 18:29 RDW Std Deviation (36.4-46.3) fL RDW Coeff of Ludin (11.5-14.5) % Garrett # (Auto) (0.11-0.59) K/uL PT (9.0-12.0) Seconds INR (0.9-1.1) BUN/Creatinine Ratio (10-20) Glucose (70-99(Fasting)) mg/dl POC Glucose 115 H (70-99) mg/dl Calcium (8.5-10.1) mg/dl Total Bilirubin (0.2-1.0) mg/dl Troponin I High Sens (0-20) pg/ml B-Natriuretic Peptide 877 H (0-100) pg/ml Diagnostic Findings Chest X-Ray 11/21/22 16:15 SINGLE VIEW CHEST CLINICAL HISTORY: Dyspnea FINDINGS: An AP, portable, upright chest radiograph is compared to study dated 11/08/2022. The heart is enlarged noting atherosclerotic calcification of the thoracic aorta. There is pulmonary vascular congestion. There are low lung volumes with chronic elevation of the left hemidiaphragm. Scarring/atelectasis is noted at the lung bases. Small pleural effusions are suspected. No pneumothorax is seen. The skeletal structures are osteopenic. The bony thorax is grossly intact. Cholecystectomy clips are noted in the right upper quadrant. IMPRESSION: 1. Cardiomegaly with evidence of congestive failure. 2. Suspect small pleural effusions. ACT 112: Negative or not required by law. Electronically signed by: Carlton Shen M.D. 11/21/2022 4:57 PM ECG Additional Comments: Sinus rhythm with 1st degree A-V block with occasional Premature ventricular complexes Left axis deviation Anterolateral infarct (cited on or before 14-JUN-2004) Abnormal ECG When compared with ECG of 21-NOV-2022 16:05, (unconfirmed) No significant change was found Code Status & VTE Plan Code Status DNR/DNI VTE Prophylaxis Plan VTE Prophylaxis will be ordered: Yes Supervising Physician Co-Signing Physician Notes I personally saw and examined the patient. I verified all taylor points and agree with Hector Dooley PA-C with the following exceptions and/or additions: 72 year old male presents with shortness of breath and increased leg swelling. Patient unable to provide any history. Appears comfortable at this time. O/E A&O to self only, HS RRR, no murmurs, Chest - bibasal crackles, 2+ pitting edema b/l equal A/P Acute on chronic heart failure with preserved ejection fraction - Suspect mainly due to high salt intake. Lasix 20mg IV BID. Low Na diet. Recommend repeat echo. PG Care Time/CCT Total # of Minutes Spent Total Time Spent with Patient: Total time spent is greater than 50% in coordination of care (as documented) at patient's floor/unit and/or counseling patient: Coding [place] [address] INT INP/OBS CARE 3/75MIN Patient Type Established Medical Decision Making High Complexity Diagnoses Elevated troponin R77.8 Pulmonary edema J81.0 Chronicity: acute Hypertension I10 Elevated bilirubin R17 Dyslipidemia E78.5 Diabetes E11.9 CVA (cerebrovascular accident) I63.9 CVA mechanism: unspecified Intellectual disability F79 CAD (coronary artery disease) I25.10 (2) Pulmonary edema Chronicity: acute Qualified Code(s): J81.0 - Acute pulmonary edema (7) CVA (cerebrovascular accident) CVA mechanism: unspecified Qualified Code(s): I63.9 - Cerebral infarction, unspecified
[2022-11-21] MEDS ORDERED: DEXTROSE 50% 50 ML SYRINGE IV PRN ×2 (18:08→19:48)
[2022-11-21] MEDS ORDERED: GLUCAGON FOR INJ 1 MG VIAL SQ PRN ×2 (18:08→19:48)
[2022-11-21] MEDS ORDERED: CARBOHYDRATES FOR HYPOGLYCEMIA PO PRN ×2 (18:08→19:48)
[2022-11-21] MEDS ORDERED: GLUCOSE 10 TAB/TUBE PO PRN ×2 (18:08→19:48)
[2022-11-21] MEDS ORDERED: GLUCOSE 40% GEL 15 GM TUBE PO PRN ×2 (18:08→19:48)
[2022-11-21] MEDS ORDERED: Patient's HEIGHT &/or WEIGHT Needed SCH (18:15)
[2022-11-21] MEDS ORDERED: ACETAMINOPHEN 325 MG TAB PO PRN (19:05)
[2022-11-21] MEDS: OLANZapine 10 MG/2.1 ML SDV IM PRN (20:24)
[2022-11-21] MEDS: ENOXAPARIN INJ 40 MG/0.4 ML SYR SQ SCH (21:51)
[2022-11-21] MEDS: INSULIN ASPART PER UNIT SC SCH (21:51)
[2022-11-21] MEDS: LANTUS PER UNIT CHARGE SQ SCH (21:52)
[2022-11-21] MEDS ORDERED: PNEUMOCOCCAL Polysaccharide Vaccine 25mcg/0.5mL vial/Syr IM ONE (22:45)
[2022-11-21] MEDS ORDERED: Flu Vaccine-High Dose (Fluzone-HD) PF 65+ 0.7mL SYR IM ONE (22:45)
[2022-11-22 06:45] LABS: Hematocrit (blood only) 45.2 % (42.0-52.0); Hemoglobin 15.2 g/dl (14.0-18.0); Mean Corpuscular Hemoglobin 29.6 pg (25.0-34.0); Mean Corpuscular Hgb Conc 33.6 g/dL (32.0-36.0); Mean Corpuscular Volume 88.1 fL (80.0-100.0); Mean Platelet Volume 11.4 fL (9.4-12.4); Platelet Count 120 K/uL (130-400); RDW Coefficient of Variation 14.6 % (11.5-14.5); RDW Standard Deviation 46.9 fL (36.4-46.3); Red Blood Count 5.13 M/uL (4.70-6.10); White Blood Count 7.51 K/ul (4.8-10.8)
[2022-11-22 06:46] LABS: Potassium 3.4 mmol/L (3.5-5.1)
[2022-11-22 06:53] LABS: Albumin Globulin Ratio 1.3 (0.9-2); Albumin Level 4.2 gm/dl (3.4-5.0); BUN Creatinine Ratio 23.3 (10-20); Bilirubin,Total 2.7 mg/dl (0.2-1.0); Calcium 10.2 mg/dl (8.5-10.1); Creatinine Clr Calc Pharmacy 87.5 ml/min; Est GFR (African American) 99.9 ml/min; Est GFR (Non-African American) 86.2 ml/min; Globulin 3.2 gm/dl (2.5-4.0); Magnesium 1.8 mg/dl (1.7-2.4); Total Protein 7.4 gm/dl (6.0-8.3); Troponin I High Sensitivity 184.2 pg/ml (0-20)
[2022-11-22 07:27] LABS: INR 1.3 (0.9-1.1); Prothrombin Time 13.7 Seconds (9.0-12.0)
[2022-11-22] MEDS: LANTUS PER UNIT CHARGE SQ SCH ×2 (08:30→20:55)
[2022-11-22] MEDS: busPIRone 5 MG TAB PO PRN (08:40)
[2022-11-22] MEDS: FINASTERIDE 5 MG TAB PO SCH (08:41)
[2022-11-22] MEDS: CLOPIDOGREL BISULFATE 75 MG TAB PO SCH (08:41)
[2022-11-22] MEDS: ATORVASTATIN 40 MG TAB PO SCH (08:42)
[2022-11-22] MEDS: FUROSEMIDE INJ 20 MG/2 ML VIAL IV SCH ×2 (08:42→20:56)
[2022-11-22] MEDS ORDERED: TRIAMTERENE/HCTZ 37.5/25MG TAB PO SCH (09:00)
[2022-11-22] MEDS: INSULIN ASPART PER UNIT SC SCH ×5 (09:03→20:55)
--- NOTE | 2022-11-22 10:37 | Cardiology Consultation ---
Date of Consultation November 22, 2022 Assessment & Plan (1) Pulmonary edema: (2) Elevated troponin: (3) Mitral regurgitation: Plan 1. Dyspnea: This is due to decompensated systolic heart. He appears comfortable at baseline. Unfortunately, the patient provides little historical information and generally does not verbalize complaints. 2. Acute decompensated systolic heart failure: He appears have severely reduced LV systolic function. Diuresis has been started. Will need to continue diuresis for symptom improvement. Will monitor his electrolytes and renal function closely. I would simply continue the intravenous Lasix as ordered provided we are affecting a good diuresis. I think we can stop his max side. He will need to go home on a daily dose of diuretic. 3. Cardiomyopathy: Likely ischemic. He has a history of peripheral vascular disease he was noted on prior echocardiography to have regional wall motion abnormalities. I suspect he has significant coronary disease. For cardiomyopathy will start him on metoprolol succinate, Entresto and consider spi ronolactone once his acute phase is resolved. He would be recommended to change his current diabetic regimen. I would recommend stopping his Januvia in favor of Jardiance. 4. Coronary disease: Presumed. He has elevated cardiac biomarkers which are not suggestive of a recent acute coronary syndrome. He had elevated biomarkers at his last admission as well. There were in a similar range. However, I do suspect that his cardiomyopathy is likely ischemic in etiology. I had an extended discussion with the patient's brother today regarding options for evaluation and treatment. Unclear if he would truly benefit from coronary angiography and reperfusion at this point. He is very sedentary without symptoms of angina. Think we will try medical therapy and reserve more invasive and aggressive procedures for recurrent decompensation or hospitalizations. 5. Mitral regurgitation: Mild. Final recommendations: Continue diuresis with Lasix 20 mg twice daily monitoring renal function, diur esis and electrolytes closely Stop Maxzide Start metoprolol succinate 25 mg daily Start Entresto Stop Januvia and consider starting Jardiance Continue dual anti-platelet therapy and high-dose atorvastatin (lipids at goal) History of Present Illness Reason for Consultation: Dyspnea, pulmonary edema Requesting Physician: Ottoniel Attending Physician: Wes Alcazar History of Present Illness The patient is a 72-year-old gentleman without a known history of cardiac disease who was brought to the hospital over concerns of breathing difficulty and edema. The patient has some cognitive difficulties and history was obtained exclusively from his sister in the emergency room. It seems that the patient has developed the symptoms recently. No other history of chest pain, dizziness or palpitations. He has had some edema in the past and evidence of pulmonary edema treated on an outpatient basis with p.r.n. diuretics. This morning he is not able to provide much history. He denied pain. He denies breathing difficulty. He was unaware the reason for being in the hospital. Claims to live in [place] but did not know much other information. I had the opportunity speak with the patient's brother the bedside. He provided some additional historical information. Patient generally does not complain of any particular symptoms. There has been no complained recently of chest discomfort or even breathing difficulty. The patient participates in adult daycare. However, according to his brother he has become more and more sedentary over the past several months. He does very little physical activity most of the day has been simply sitting and watching television. Allergies Allergy/AdvReac Type Severity Reaction Status Date / Time amoxicillin [From Augmentin] Allergy Unknown CAN'T Verified 11/13/22 15:08 REMEMBER clavulanic acid Allergy Unknown CAN'T Verified 11/13/22 15:08 [From Augmentin] REMEMBER Penicillins Allergy Unknown CAN'T Verified 11/13/22 15:08 REMEMBER Home Medications Medication Instructions Recorded Confirmed Type acetaminophen 500 mg tablet 1,000 mg PO DIRECTED PRN Pain 06/25/19 11/21/22 History (Tylenol Extra Strength) aspirin 81 mg tablet,delayed 81 mg PO QPM 08/06/19 11/21/22 History release atorvastatin 40 mg tablet 40 mg PO DAILY #90 tabs 01/07/22 11/21/22 Rx metformin 500 mg tablet,extended 2,000 mg PO DAILY #360 tabs 01/07/22 11/21/22 Rx release 24 hr sitagliptin phosphate 100 mg 100 mg PO DAILY #90 tabs 01/07/22 11/21/22 Rx tablet (Januvia) insulin glargine 100 unit/mL (3 14 unit (0.14 mL) subcut QPM #15 mL 04/12/22 11/21/22 Rx mL) subcutaneous pen (Basaglar KwikPen U-100 Insulin) clopidogrel 75 mg tablet 75 mg PO DAILY #90 tabs 04/30/22 11/21/22 Rx pen needle, diabetic 31 gauge x #100 ea 05/08/22 11/21/22 Rx 5/16" (1st Tier Unifine Pentips) finasteride 5 mg tablet (Proscar) 5 mg PO DAILY #90 tabs 06/10/22 11/21/22 Rx triamterene 37.5 1 tab PO DAILY #90 tabs 06/10/22 11/21/22 Rx mg-hydrochlorothiazide 25 mg tablet (Maxzide-25mg) nystatin 100,000 unit/gram topical 1 applic topical BID PRN rash #30 07/18/22 11/21/22 Rx powder grams buspirone 10 mg tablet 10 mg PO TID PRN anxiety 90 days 11/14/22 11/21/22 Rx #270 tabs furosemide 20 mg tablet (Lasix) 20 mg PO DAILY #15 tabs 11/14/22 11/21/22 Rx blood sugar diagnostic (FreeStyle #100 strips 11/21/22 11/21/22 Rx Lite Strips) glimepiride 2 mg tablet 2 mg PO QAM 11/21/22 11/21/22 History Patient History Medical History Abnormal EKG Carotid artery stenosis with cerebral infarction CVA (cerebrovascular accident) 06/28/19: Posterior left hemispheric multifocal infarct s/p tPA ([facility])- right sided residual deficit- on plavix Diabetes NIDDM Dyslipidemia Elevated troponin I level GI bleed History of small bowel obstruction Hypertension Intellectual disability resides with his sister. brother (Gene) is POA Postop carotid endarterectomy surveillance, encounter for Urinary retention with incomplete bladder emptying Surgical History History of cholecystectomy History of colonoscopy Family History Other No pertinent family history Social History Smoking Status: Never smoker Second Hand Exposure: No; Do You Dip or Chew Tobacco: No; Tobacco Cessation Education Requested by Patient: No Hx Alcohol Use: No Hx Substance Use: No Preferred Language: Samoan Communication Ability: Impaired Visual Impairment: No Limitations Hearing Ability: Normal [employer]st Required: No Beliefs That Will Affect Care: None marital status: Single Current Living Situation: Family and Legal Guardian Current Living Situation Comment: lives with Sister current occupational status: other 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 [employer] Other Information That Helps Us Care for You: No Feels Safe at Home: Yes Safety Concerns: Feels Safe At This Time caffeine: Yes Seatbelt Use: always Sunscreen Use: Yes Assistive Devices: None Review of Systems Review of Systems: Unobtainable due to cognitive status Physical Exam Physical Exam: The patient is alert and oriented to person HEENT: Pupils are equal and reactive to light and accommodation. Extraocular movements are intact. The sclerae are anicteric. Neuro: Cranial nerves intact Lungs: Some bronchial breath sounds with occasional expiratory wheezing. Crackles in the bases. Normal respiratory effort. Cardiac: Heart demonstrates a regular rate and rhythm. Normal S1 and S2. Soft crescendo systolic murmur Pulses: The patient has palpable radial pulses bilaterally that are equal in intensity Extremities: There was no evidence of hypoperfusion. There is no cyanosis or clubbing. Mild lower extremity edema. Skin: I did not appreciate any rashes on examination today. Results & Data ([facility]) Vital Signs (Past 12 Hours) Vital Signs Temp Pulse Pulse Resp BP BP Pulse Ox 11/22/22 07:51 36.3 C L 71 18 112/71 98 11/22/22 03:16 36.5 C 70 18 95/54 L 93 11/21/22 23:26 36.5 C 20 109/64 95 O2 Del Method 11/22/22 07:51 Room Air 11/22/22 03:16 Room Air 11/21/22 23:26 Room Air Laboratory Results Abnormal Lab Results 11/21/22 11/21/22 11/21/22 16:21 16:21 16:21 WBC 8.38 RBC 5.26 Hgb 15.9 Hct 46.9 MCV 89.2 MCH 30.2 MCHC 33.9 RDW Std Deviation 48.5 H RDW Coeff of Ludin 14.8 H Plt Count 143 MPV 11.4 Immature Gran % (Auto) 0.6 Neut % (Auto) 69.7 Lymph % (Auto) 19.3 [place] % (Auto) 8.7 Eos % (Auto) 1.3 Baso % (Auto) 0.4 Neut # (Auto) 5.84 Lymph # (Auto) 1.62 [place] # (Auto) 0.73 H Eos # (Auto) 0.11 Baso # (Auto) 0.03 Immature Gran # (Auto) 0.05 PT 14.4 H INR 1.4 H APTT 28.6 PTT Ratio 1.0 Sodium 137 Potassium 4.6 Chloride 101 Carbon Dioxide 29 Anion Gap 7 BUN 22 Creatinine 0.90 Est Cr Clr Drug Dosing Not Reportable Est GFR ( Amer) 99.9 Est GFR (Non-Af Amer) 86.2 BUN/Creatinine Ratio 24.4 H Glucose 129 H POC Glucose Calcium 10.6 H Magnesium 1.9 Total Bilirubin 2.2 H AST 33 ALT 34 Alkaline Phosphatase 102 Troponin I High Sens 200.3 H* B-Natriuretic Peptide Total Protein 8.2 Albumin 4.6 Globulin 3.6 Albumin/Globulin Ratio 1.3 SARS-CoV-2 (PCR) Influenza Type A (PCR) Influenza Type B (PCR) RSV (RT-PCR) 11/21/22 11/21/22 11/21/22 16:21 16:35 18:29 WBC RBC Hgb Hct MCV MCH MCHC RDW Std Deviation RDW Coeff of Ludin Plt Count MPV Immature Gran % (Auto) Neut % (Auto) Lymph % (Auto) [place] % (Auto) Eos % (Auto) Baso % (Auto) Neut # (Auto) Lymph # (Auto) [place] # (Auto) Eos # (Auto) Baso # (Auto) Immature Gran # (Auto) PT INR APTT PTT Ratio Sodium Potassium Chloride Carbon Dioxide Anion Gap BUN Creatinine Est Cr Clr Drug Dosing Est GFR ( Amer) Est GFR (Non-Af Amer) BUN/Creatinine Ratio Glucose POC Glucose 115 H Calcium Magnesium Total Bilirubin AST ALT Alkaline Phosphatase Troponin I High Sens B-Natriuretic Peptide 877 H Total Protein Albumin Globulin Albumin/Globulin Ratio SARS-CoV-2 (PCR) NEGATIVE Influenza Type A (PCR) Negative Influenza Type B (PCR) Negative RSV (RT-PCR) Negative 11/21/22 11/21/22 11/21/22 19:09 20:37 22:35 WBC RBC Hgb Hct MCV MCH MCHC RDW Std Deviation RDW Coeff of Ludin Plt Count MPV Immature Gran % (Auto) Neut % (Auto) Lymph % (Auto) [place] % (Auto) Eos % (Auto) Baso % (Auto) Neut # (Auto) Lymph # (Auto) [place] # (Auto) Eos # (Auto) Baso # (Auto) Immature Gran # (Auto) PT INR APTT PTT Ratio Sodium Potassium Chloride Carbon Dioxide Anion Gap BUN Creatinine Est Cr Clr Drug Dosing Est GFR ( Amer) Est GFR (Non-Af Amer) BUN/Creatinine Ratio Glucose POC Glucose 169 H Calcium Magnesium Total Bilirubin AST ALT Alkaline Phosphatase Troponin I High Sens 184.2 H* 171.9 H* B-Natriuretic Peptide Total Protein Albumin Globulin Albumin/Globulin Ratio SARS-CoV-2 (PCR) Influenza Type A (PCR) Influenza Type B (PCR) RSV (RT-PCR) 11/22/22 11/22/22 11/22/22 06:10 06:10 06:10 WBC 7.51 RBC 5.13 Hgb 15.2 Hct 45.2 MCV 88.1 MCH 29.6 MCHC 33.6 RDW Std Deviation 46.9 H RDW Coeff of Ludin 14.6 H Plt Count 120 L MPV 11.4 Immature Gran % (Auto) Neut % (Auto) Lymph % (Auto) [place] % (Auto) Eos % (Auto) Baso % (Auto) Neut # (Auto) Lymph # (Auto) [place] # (Auto) Eos # (Auto) Baso # (Auto) Immature Gran # (Auto) PT 13.7 H INR 1.3 H APTT PTT Ratio Sodium 140 Potassium 3.4 L D Chloride 103 Carbon Dioxide 28 Anion Gap 9 BUN 21 Creatinine 0.90 Est Cr Clr Drug Dosing 87.5 Est GFR ( Amer) 99.9 Est GFR (Non-Af Amer) 86.2 BUN/Creatinine Ratio 23.3 H Glucose 101 H POC Glucose Calcium 10.2 H Magnesium 1.8 Total Bilirubin 2.7 H AST 27 ALT 30 Alkaline Phosphatase 91 Troponin I High Sens 184.2 H* B-Natriuretic Peptide Total Protein 7.4 Albumin 4.2 Globulin 3.2 Albumin/Globulin Ratio 1.3 SARS-CoV-2 (PCR) Influenza Type A (PCR) Influenza Type B (PCR) RSV (RT-PCR) 11/22/22 07:53 WBC RBC Hgb Hct MCV MCH MCHC RDW Std Deviation RDW Coeff of Ludin Plt Count MPV Immature Gran % (Auto) Neut % (Auto) Lymph % (Auto) [place] % (Auto) Eos % (Auto) Baso % (Auto) Neut # (Auto) Lymph # (Auto) [place] # (Auto) Eos # (Auto) Baso # (Auto) Immature Gran # (Auto) PT INR APTT PTT Ratio Sodium Potassium Chloride Carbon Dioxide Anion Gap BUN Creatinine Est Cr Clr Drug Dosing Est GFR ( Amer) Est GFR (Non-Af Amer) BUN/Creatinine Ratio Glucose POC Glucose 105 H Calcium Magnesium Total Bilirubin AST ALT Alkaline Phosphatase Troponin I High Sens B-Natriuretic Peptide Total Protein Albumin Globulin Albumin/Globulin Ratio SARS-CoV-2 (PCR) Influenza Type A (PCR) Influenza Type B (PCR) RSV (RT-PCR) Diagnostic Findings Chest x-ray obtained the time admission revealed cardiomegaly and pulmonary vascular congestion. Echocardiogram performed 07/27/2021: Ejection fraction 50-55%. Apical inferior hypokinesis. Aortic valve sclerosis. Moderate mitral annular calcification and moderate mitral regurgitation Echocardiogram performed 11/22/2022: Severely reduced LV systolic function with ejection fraction 20 25%. Stage II diastolic dysfunction. Regional wall motion abnormalities. Mild mitral regurgitation. ECG Additional Comments: EKG demonstrated normal sinus rhythm with poor R-wave progression in precordial leads. Frequent PVCs. Incomplete right bundle branch block. PG Care Time/CCT Total # of Minutes Spent Total Time Spent with Patient: Total time spent is greater than 50% in coordination of care (as documented) at patient's floor/unit and/or counseling patient: Coding Level of Care Code 28645 INT INP/OBS CARE MIN Diagnoses Pulmonary edema J81.0 Chronicity: acute Elevated troponin R77.8 Mitral regurgitation I34.0 (1) Pulmonary edema Chronicity: acute Qualified Code(s): J81.0 - Acute pulmonary edema
--- NOTE | 2022-11-22 10:57 | XCELERA ---
[id number]
--- NOTE | 2022-11-22 11:36 | Electrocardiogram Report ---
Test Reason : Blood Pressure : / mmHG Vent. Rate : 081 BPM Atrial Rate : 081 BPM P-R Int : 236 ms QRS Dur : 104 ms QT Int : 382 ms P-R-T Axes : 068 -33 143 degrees QTc Int : 443 ms Sinus rhythm with 1st degree A-V block with frequent Premature ventricular complexes Left axis deviation Incomplete right bundle branch block Abnormal ECG When compared with ECG of 22-NOV-2022 05:33, (unconfirmed) Premature ventricular complexes are now Present Confirmed by Aristides Altamirano ([id number]) on 11/22/2022 11:36:13 AM Referred By: REFERRED SELF Confirmed By:Messi Altamirano
--- NOTE | 2022-11-22 11:36 | Electrocardiogram Report ---
Test Reason : Blood Pressure : / mmHG Vent. Rate : 079 BPM Atrial Rate : 079 BPM P-R Int : 240 ms QRS Dur : 104 ms QT Int : 376 ms P-R-T Axes : 040 -31 155 degrees QTc Int : 431 ms Sinus rhythm with 1st degree A-V block Left axis deviation Incomplete right bundle branch block possible Inferior infarct , age undetermined Abnormal ECG When compared with ECG of 21-NOV-2022 16:06, (unconfirmed) Premature ventricular complexes are no longer Present Incomplete right bundle branch block is now Present Confirmed by Aristides Altamirano ([id number]) on 11/22/2022 11:35:56 AM Referred By: REFERRED SELF Confirmed By:Messi Altamirano
--- NOTE | 2022-11-22 11:41 | Electrocardiogram Report ---
Test Reason : Blood Pressure : / mmHG Vent. Rate : 084 BPM Atrial Rate : 084 BPM P-R Int : 246 ms QRS Dur : 090 ms QT Int : 394 ms P-R-T Axes : 054 -58 140 degrees QTc Int : 465 ms Sinus rhythm with 1st degree A-V block with occasional Premature ventricular complexes Left axis deviation Anterolateral infarct (cited on or before 14-JUN-2004) Abnormal ECG When compared with ECG of 21-NOV-2022 16:05, (unconfirmed) No significant change was found Confirmed by Aristides Altamirano ([id number]) on 11/22/2022 11:40:53 AM Referred By: REFERRED SELF Confirmed By:Messi Altamirano
[2022-11-22] MEDS: VALSARTAN/SACUBITRIL 26/24MG TAB PO SCH (20:56)
[2022-11-22] MEDS: ASPIRIN 81 MG ECTAB PO SCH (20:57)
[2022-11-22] MEDS: ENOXAPARIN INJ 40 MG/0.4 ML SYR SQ SCH (20:57)
--- NOTE | 2022-11-22 22:21 | Hospitalist Progress Note ---
Date of Service November 22, 2022 Assessment & Plan (1) Acute systolic (congestive) heart failure: Plan: Patient admitted with MCKEON and LE edema. Patient has radiographical evidence of CHF. BNP is elevated. will continue to diurese. appreciate input from Cardio. reviewed echo findings. continue current lasix. due to his sedentary lifestyle will hold off invasice treatment (2) Elevated troponin: Plan: has been chronically elevated. (3) Pulmonary edema: Plan: -See NSTEMI -Patient has been on Triamterene-HCTZ with once weekly PO lasix -Continue with BID IV lasix for now, follow TTE tomorrow -Will likely need to be discharged on daily lasix as it will be difficult to control his salt intake with is baseline intellectual disablilities (4) Hypertension: Plan: -Stable -Continue Diuretics (5) Elevated bilirubin: Plan: -Total bili elevated today at 2.2, all other LFTs WNL, patient is without abdominal discomfort -INR elevated at 1.4 -Could be a component of liver congestion from his CHF -remains elevated. (6) Dyslipidemia: Plan: -Conitnue statin (7) Diabetes: Plan: -Hold home antihyperglycemics -Will start with 5 units lantus BID, correction factor of 50 and carb ratio of 15 -Monitor BSG ACHS with goal of 110-160 -DM II diet with 2gm sodium restriction and 2L fluid restriction (8) CVA (cerebrovascular accident): Plan: -Continue aspirin and plavix (9) Intellectual disability: Plan: -Continue TID prn buspar for anxiety -Will order 2.5 mg IM Zyprexa q4h prn for agitation/aggression (10) CAD (coronary artery disease): Plan: -Continue aspirin Plan The patient was discussed with Dr. Finch at the time of the admission Admission and Anticipated Discharge Date Admission Date: November 21, 2022 Subjective 72 yo male reports feeling better. He is a poor historian. Review of Systems Review of Systems: All systems reviewed & are unremarkable except as noted in HPI & below Physical Exam Physical Exam: General:In no acute distress, stated age, chronically ill-appearing, non-toxic appearing HEENT:Normocephalic, atraumatic, no scleral icterus, pupils around round, symmetrical, and reactive to light, moist mucus membranes, trachea midline, no thyromegaly Chest/Pulm:No respiratory distress, symmetrical chest expansion, crackles and BL expiratory wheezing noted in the middle and upper lung jaquez, decreased breath sounds in the BL lower lung jaquez Cardiac:RRR, no murmurs noted Abdomen:Negative for ascites and bruising, normoactive bowel sounds, soft, non-tender to palpation throughout Musculoskeletal:Symmetrical and without signs of acute trauma, upper and lower extremities with full ROM, no atrophy, spasticity, or flaccidity Extremities:Radial, dorsalis pedis, and posterior tibial pulses are intact and symmetrical, 2+ pitting edema noted in the BL LE's Skin:Patient with symmetrical erythema in the BL LE's consistent with venous stasis, extensive healing/scabbed abrasions and cuts on the BL LE's, no signs of infection or drainage Neuro:Alert oriented to self, no focal defects and symmetrical strength in the BL Upper and lower extremities Psych:Patient is mildly anxious during my exam but is not aggressive and is cooperative during the exam/follows commands Results & Data Results & Data ([facility]) Vital Signs (Past 12 Hours) Vital Signs Temp Pulse Pulse Resp BP BP Pulse Ox 11/22/22 19:04 36.4 C L 63 20 122/81 97 11/22/22 19:26 11/22/22 16:21 72 11/22/22 16:20 87 11/22/22 14:56 36.4 C L 82 18 133/75 95 11/22/22 12:04 36.5 C 81 18 113/62 98 O2 Del Method 11/22/22 19:04 Room Air 11/22/22 19:26 Room Air 11/22/22 16:21 11/22/22 16:20 11/22/22 14:56 Room Air 11/22/22 12:04 Room Air PG Care Time/CCT Total # of Minutes Spent Total Time Spent with Patient: Total time spent is greater than 50% in coordination of care (as documented) at patient's floor/unit and/or counseling patient: Coding Level of Care Code 50548 SUB INP/OBS CARE 2/35MIN Diagnoses Acute systolic (congestive) heart failure I50.21 Elevated troponin R77.8 Pulmonary edema J81.0 Chronicity: acute Hypertension I10 Elevated bilirubin R17 Dyslipidemia E78.5 Diabetes E11.9 CVA (cerebrovascular accident) I63.9 CVA mechanism: unspecified Intellectual disability F79 CAD (coronary artery disease) I25.10 (3) Pulmonary edema Chronicity: acute Qualified Code(s): J81.0 - Acute pulmonary edema (8) CVA (cerebrovascular accident) CVA mechanism: unspecified Qualified Code(s): I63.9 - Cerebral infarction, unspecified
[2022-11-23] MEDS: OLANZapine 10 MG/2.1 ML SDV IM PRN ×4 (04:05→23:02)
[2022-11-23 06:17] LABS: Hemoglobin 15.9 g/dl (14.0-18.0); Mean Corpuscular Hemoglobin 29.6 pg (25.0-34.0); Mean Corpuscular Hgb Conc 33.8 g/dL (32.0-36.0); Mean Corpuscular Volume 87.5 fL (80.0-100.0); Mean Platelet Volume 10.7 fL (9.4-12.4); Platelet Count 127 K/uL (130-400); RDW Coefficient of Variation 14.6 % (11.5-14.5); RDW Standard Deviation 46.6 fL (36.4-46.3); Red Blood Count 5.37 M/uL (4.70-6.10); White Blood Count 7.58 K/ul (4.8-10.8)
[2022-11-23 06:35] LABS: Albumin Globulin Ratio 1.2 (0.9-2); BUN Creatinine Ratio 20.4 (10-20); Bilirubin,Total 2.6 mg/dl (0.2-1.0); Calcium 9.6 mg/dl (8.5-10.1); Creatinine Clr Calc Pharmacy 72.1 ml/min; Est GFR (African American) 80.2 ml/min; Est GFR (Non-African American) 69.2 ml/min; Globulin 3.4 gm/dl (2.5-4.0); Magnesium 1.8 mg/dl (1.7-2.4); Potassium 3.1 mmol/L (3.5-5.1); Total Protein 7.4 gm/dl (6.0-8.3)
[2022-11-23] MEDS: busPIRone 5 MG TAB PO PRN ×2 (08:01→15:36)
[2022-11-23] MEDS: CLOPIDOGREL BISULFATE 75 MG TAB PO SCH (08:02)
[2022-11-23] MEDS: FINASTERIDE 5 MG TAB PO SCH (08:02)
[2022-11-23] MEDS: ATORVASTATIN 40 MG TAB PO SCH (08:02)
[2022-11-23] MEDS: VALSARTAN/SACUBITRIL 26/24MG TAB PO SCH ×2 (08:03→20:11)
[2022-11-23] MEDS: LANTUS PER UNIT CHARGE SQ SCH ×2 (08:36→21:10)
[2022-11-23] MEDS: INSULIN ASPART PER UNIT SC SCH ×4 (09:00→21:10)
[2022-11-23] MEDS: FUROSEMIDE INJ 20 MG/2 ML VIAL IV SCH ×2 (09:08→20:12)
[2022-11-23] MEDS: METOPROLOL SUCC 25MG EXT REL TAB PO SCH (09:10)
--- NOTE | 2022-11-23 10:13 | Hospitalist Progress Note ---
Date of Service November 23, 2022 Assessment & Plan (1) Acute systolic (congestive) heart failure: Plan: Patient admitted with MCKEON and LE edema. Patient has radiographical evidence of CHF. BNP is elevated. will continue to diurese. Creatinine slightly increased but still normal range on 11/23, continue above lasix 20 mg IV BID. could also be attributed to the entresto appreciate input from Cardio. reviewed echo findings. due to his sedentary lifestyle will hold off invasive treatment (2) Elevated troponin: Plan: has been chronically elevated. (3) Pulmonary edema: Plan: -See NSTEMI -Patient has been on Triamterene-HCTZ with once weekly PO lasix -Continue with BID IV lasix for now, follow TTE tomorrow -Will likely need to be discharged on daily lasix as it will be difficult to control his salt intake with is baseline intellectual disablilities (4) Hypertension: Plan: -Stable -Continue Diuretics (5) Elevated bilirubin: Plan: -Total bili elevated today at 2.2, all other LFTs WNL, patient is without abdominal discomfort -INR elevated at 1.4 -Could be a component of liver congestion from his CHF -remains elevated. BIlir and INR are elevated. will obtain acute hepatitis panel and obtain RUQ U?S of the liver. (6) Dyslipidemia: Plan: -Conitnue statin (7) Diabetes: Plan: -Hold home antihyperglycemics -Will start with 5 units lantus BID, correction factor of 50 and carb ratio of 15 -Monitor BSG ACHS with goal of 110-160 -DM II diet with 2gm sodium restriction and 2L fluid restriction (8) CVA (cerebrovascular accident): Plan: -Continue aspirin and plavix (9) Intellectual disability: Plan: -Continue TID prn buspar for anxiety -Will order 2.5 mg IM Zyprexa q4h prn for agitation/aggression (10) CAD (coronary artery disease): Plan: -Continue aspirin Admission and Anticipated Discharge Date Admission Date: November 21, 2022 Subjective 72 yo male reports no new symptoms. He is feeling better. He has no new complaints. Review of Systems Review of Systems: All systems reviewed & are unremarkable except as noted in HPI & below Physical Exam Physical Exam: General:In no acute distress, stated age, chronically ill-appearing, non-toxic appearing HEENT:Normocephalic, atraumatic, scleral icterus is noted, pupils around round, symmetrical, and reactive to light, moist mucus membranes, trachea midline, no thyromegaly Chest/Pulm:No respiratory distress, symmetrical chest expansion, crackles and BL expiratory wheezing noted in the middle and upper lung jaquez, decreased breath sounds in the BL lower lung jaquez Cardiac:RRR, no murmurs noted Abdomen:Negative for ascites and bruising, normoactive bowel sounds, soft, non-tender to palpation throughout Musculoskeletal:Symmetrical and without signs of acute trauma, upper and lower extremities with full ROM, no atrophy, spasticity, or flaccidity Extremities:Radial, dorsalis pedis, and posterior tibial pulses are intact and symmetrical, 2+ pitting edema noted in the BL LE's Skin:Patient with symmetrical erythema in the BL LE's consistent with venous stasis, extensive healing/scabbed abrasions and cuts on the BL LE's, no signs of infection or drainage Neuro:Alert oriented to self, no focal defects and symmetrical strength in the BL Upper and lower extremities Psych:Patient is mildly anxious during my exam but is not aggressive and is cooperative during the exam/follows commands Results & Data Results & Data ([facility]) Vital Signs (Past 12 Hours) Vital Signs Temp Pulse Resp BP BP Pulse Ox O2 Del Method 11/23/22 07:58 36.4 C L 76 18 105/67 95 Room Air 11/23/22 03:41 36.4 C L 104 H 20 103/44 L 93 Room Air 11/22/22 23:36 36.4 C L 65 18 122/77 93 Room Air PG Care Time/CCT Total # of Minutes Spent Total Time Spent with Patient: Total time spent is greater than 50% in coordination of care (as documented) at patient's floor/unit and/or counseling patient: Coding Level of Care Code 96126 SUB INP/OBS CARE 3/50MIN Diagnoses Acute systolic (congestive) heart failure I50.21 Elevated troponin R77.8 Pulmonary edema J81.0 Chronicity: acute Hypertension I10 Elevated bilirubin R17 Dyslipidemia E78.5 Diabetes E11.9 CVA (cerebrovascular accident) I63.9 CVA mechanism: unspecified Intellectual disability F79 CAD (coronary artery disease) I25.10 (3) Pulmonary edema Chronicity: acute Qualified Code(s): J81.0 - Acute pulmonary edema (8) CVA (cerebrovascular accident) CVA mechanism: unspecified Qualified Code(s): I63.9 - Cerebral infarction, unspecified
[2022-11-23 10:16] LABS: Bilirubin Direct 0.4 mg/dl (0-0.2)
--- NOTE | 2022-11-23 14:05 | Ultrasound Report ---
US liver CLINICAL HISTORY: Elevated liver function tests. COMPARISON STUDY: CT of the abdomen and pelvis July 26, 2021. FINDINGS: This exam was technically difficult to obtain. There is no definite biliary ductal dilatati on status post cholecystectomy. No hepatic lesions are identified although sensitivity is diminished on this exam. Pancreatic body is normal. Head and tail are obscured. There is no right hydronephrosis . IMPRESSION: Technically difficult exam but no significant abnormality identified within the right up per quadrant status post cholecystectomy. ACT 112: Negative or not required by law. Electronically signed by: Lamont Wilson M.D. 11/23/2022 2:03 PM
[2022-11-23] MEDS: POTASSIUM CHLORIDE CRTAB 20 MEQ TABCR PO SCH ×2 (14:07→20:12)
[2022-11-23] MEDS: ENOXAPARIN INJ 40 MG/0.4 ML SYR SQ SCH (20:11)
[2022-11-23] MEDS: ASPIRIN 81 MG ECTAB PO SCH (20:12)
[2022-11-24 06:03] LABS: Hematocrit (blood only) 48.9 % (42.0-52.0); Hemoglobin 16.7 g/dl (14.0-18.0); Mean Corpuscular Hemoglobin 29.4 pg (25.0-34.0); Mean Corpuscular Hgb Conc 34.2 g/dL (32.0-36.0); Mean Corpuscular Volume 86.1 fL (80.0-100.0); Mean Platelet Volume 10.7 fL (9.4-12.4); Platelet Count 145 K/uL (130-400); RDW Coefficient of Variation 14.5 % (11.5-14.5); RDW Standard Deviation 45.7 fL (36.4-46.3); Red Blood Count 5.68 M/uL (4.70-6.10); White Blood Count 8.18 K/ul (4.8-10.8)
[2022-11-24 06:19] LABS: Albumin Level 4.2 gm/dl (3.4-5.0); Bilirubin,Total 2.3 mg/dl (0.2-1.0); Calcium 9.8 mg/dl (8.5-10.1); Magnesium 2.1 mg/dl (1.7-2.4); Potassium 3.5 mmol/L (3.5-5.1)
[2022-11-24 06:25] LABS: Albumin Globulin Ratio 1.2 (0.9-2); Creatinine Clr Calc Pharmacy 77.2 ml/min; Est GFR (Non-African American) 75.9 ml/min; Globulin 3.6 gm/dl (2.5-4.0); Phosphorus 3.3 mg/dl (2.5-4.9); Total Protein 7.8 gm/dl (6.0-8.3)
[2022-11-24] MEDS: busPIRone 5 MG TAB PO PRN (08:44)
[2022-11-24] MEDS: FUROSEMIDE INJ 20 MG/2 ML VIAL IV SCH (08:45)
[2022-11-24] MEDS: FINASTERIDE 5 MG TAB PO SCH (08:45)
[2022-11-24] MEDS: VALSARTAN/SACUBITRIL 26/24MG TAB PO SCH ×2 (08:45→20:39)
[2022-11-24] MEDS: METOPROLOL SUCC 25MG EXT REL TAB PO SCH (08:46)
[2022-11-24] MEDS: CLOPIDOGREL BISULFATE 75 MG TAB PO SCH (08:46)
[2022-11-24] MEDS: ATORVASTATIN 40 MG TAB PO SCH (08:46)
[2022-11-24] MEDS: POTASSIUM CHLORIDE CRTAB 20 MEQ TABCR PO SCH ×3 (08:47→20:42)
[2022-11-24] MEDS: INSULIN ASPART PER UNIT SC SCH ×4 (08:52→20:34)
[2022-11-24] MEDS: LANTUS PER UNIT CHARGE SQ SCH ×2 (09:07→20:36)
--- NOTE | 2022-11-24 10:15 | Hospitalist Progress Note ---
Date of Service November 24, 2022 Assessment & Plan (1) Elevated troponin: Plan: Acute on chronic systolic heart failure. TTE showed severe dysfunction of left ventricle -Admit to the PCU -The patient is currently afebrile, hemodynamically stable and stable on RA -The patient presented today with ongoing MCKEON, LE edema, and a non-productive cough. Chest xray was noted to have evidence of CHF with BL small plural effusions. -BNP was elevated at 877 with initial high sensitivity trop of 200 -The patient is without chest pain and subjective SOB at rest, sister states that he has been having progressive MCKEON and only able to walk short distances at this time -His current status and troponin elevation is likely a NSTEMI due to demand for CHF failure -NO acute ECG changes noted -Will repeat another high sensitivity trop now and then trend q6h overnight -Monitor on tele and pulse oximetry -Was given 324 mg PO aspirin and 40 mg IV lasix in the ED -as creatinine is creeping up, will transition patient to Lasix 40 mg PO daily starting in the AM of 11/25 -now on entrsto and beta celsa. -BL SCDs and Sub-Q lovenox for DVT PPX -AM CBC, CMP, Mag, PT/INR (2) Pulmonary edema: Plan: -See NSTEMI -Patient has been on Triamterene-HCTZ with once weekly PO lasix -Continue with BID IV lasix for now, follow TTE tomorrow -Will likely need to be discharged on daily lasix as it will be difficult to control his salt intake with is baseline intellectual disablilities (3) Hypertension: Plan: -Stable -Continue Diuretics (4) Elevated bilirubin: Plan: -Total bili elevated today at 2.2, all other LFTs WNL, patient is without abdominal discomfort -INR elevated at 1.4 -Could be a component of liver congestion from his CHF -Monitor am CMP -bilirubin has been steady will obtain hepatitis panel (5) Dyslipidemia: Plan: -Conitnue statin (6) Diabetes: Plan: -Hold home antihyperglycemics -Will start with 5 units lantus BID, correction factor of 50 and carb ratio of 15 -Monitor BSG ACHS with goal of 110-160 -DM II diet with 2gm sodium restriction and 2L fluid restriction (7) CVA (cerebrovascular accident): Plan: -Continue aspirin and plavix (8) Intellectual disability: Plan: -Continue TID prn buspar for anxiety -will schedule zyprexa at 18:00. 5 mg. -Will order 2.5 mg IM Zyprexa q4h prn for agitation/aggression (9) CAD (coronary artery disease): Plan: -Continue aspirin Admission and Anticipated Discharge Date Admission Date: November 21, 2022 Subjective 72 yo male had a difficult night last night. Patient required about 7.5 mg of olanzapine overnight. Patient currently is a poor historian and states that his "Dad is ". Family was updated yesterday afternoon. Review of Systems Review of Systems: All systems reviewed & are unremarkable except as noted in HPI & below Physical Exam Physical Exam: General:In no acute distress, stated age, chronically ill-appearing, non-toxic appearing HEENT:Normocephalic, atraumatic, scleral icterus is noted, pupils around round, symmetrical, and reactive to light, moist mucus membranes, trachea midline, no thyromegaly Chest/Pulm:No respiratory distress, symmetrical chest expansion, crackles and BL expiratory wheezing noted in the middle and upper lung jaquez, decreased breath sounds in the BL lower lung jaquez Cardiac:RRR, no murmurs noted Abdomen:Negative for ascites and bruising, normoactive bowel sounds, soft, non-tender to palpation throughout Musculoskeletal:Symmetrical and without signs of acute trauma, upper and lower extremities with full ROM, no atrophy, spasticity, or flaccidity Extremities:Radial, dorsalis pedis, and posterior tibial pulses are intact and symmetrical, 2+ pitting edema noted in the BL LE's Skin:Patient with symmetrical erythema in the BL LE's consistent with venous stasis, extensive healing/scabbed abrasions and cuts on the BL LE's, no signs of infection or drainage Neuro:Alert oriented to self, no focal defects and symmetrical strength in the BL Upper and lower extremities Psych:Patient is mildly anxious during my exam but is not aggressive and is cooperative during the exam/follows commands Results & Data Results & Data ([facility]) Vital Signs (Past 12 Hours) Vital Signs Temp Pulse Resp BP BP Pulse Ox O2 Del Method 11/24/22 08:02 36.5 C 72 16 112/73 95 Room Air 11/24/22 04:24 36.4 C L 68 16 102/70 94 Room Air 11/23/22 23:27 36.5 C 70 20 103/68 93 Room Air PG Care Time/CCT Total # of Minutes Spent Total Time Spent with Patient: Total time spent is greater than 50% in coordination of care (as documented) at patient's floor/unit and/or counseling patient: Coding Level of Care Code 39532 SUB INP/OBS CARE 2/35MIN Diagnoses Elevated troponin R77.8 Pulmonary edema J81.0 Chronicity: acute Hypertension I10 Elevated bilirubin R17 Dyslipidemia E78.5 Diabetes E11.9 CVA (cerebrovascular accident) I63.9 CVA mechanism: unspecified Intellectual disability F79 CAD (coronary artery disease) I25.10 (2) Pulmonary edema Chronicity: acute Qualified Code(s): J81.0 - Acute pulmonary edema (7) CVA (cerebrovascular accident) CVA mechanism: unspecified Qualified Code(s): I63.9 - Cerebral infarction, unspecified
[2022-11-24] MEDS: OLANZapine 5 MG TABLET PO SCH (17:28)
[2022-11-24] MEDS: ENOXAPARIN INJ 40 MG/0.4 ML SYR SQ SCH (20:38)
[2022-11-24] MEDS: ASPIRIN 81 MG ECTAB PO SCH (20:39)
[2022-11-25] MEDS: FINASTERIDE 5 MG TAB PO SCH (08:09)
[2022-11-25] MEDS: CLOPIDOGREL BISULFATE 75 MG TAB PO SCH (08:09)
[2022-11-25] MEDS: ATORVASTATIN 40 MG TAB PO SCH (08:09)
[2022-11-25] MEDS: METOPROLOL SUCC 25MG EXT REL TAB PO SCH (08:10)
[2022-11-25] MEDS: VALSARTAN/SACUBITRIL 26/24MG TAB PO SCH ×2 (08:10→22:00)
[2022-11-25] MEDS: FUROSEMIDE 40 MG TAB PO SCH (08:10)
[2022-11-25] MEDS: INSULIN ASPART PER UNIT SC SCH ×4 (09:39→21:50)
[2022-11-25] MEDS: LANTUS PER UNIT CHARGE SQ SCH ×2 (09:39→21:50)
--- NOTE | 2022-11-25 11:06 | Hospitalist Progress Note ---
Date of Service November 25, 2022 Assessment & Plan (1) Elevated troponin: Plan: Acute on chronic systolic heart failure. TTE showed severe dysfunction of left ventricle -Admit to the PCU -The patient is currently afebrile, hemodynamically stable and stable on RA -The patient presented today with ongoing MCKEON, LE edema, and a non-productive cough. Chest xray was noted to have evidence of CHF with BL small plural effusions. -BNP was elevated at 877 with initial high sensitivity trop of 200 -The patient is without chest pain and subjective SOB at rest, sister states that he has been having progressive MCKEON and only able to walk short distances at this time -His current status and troponin elevation is likely a NSTEMI due to demand for CHF failure -NO acute ECG changes noted -as creatinine is creeping up, will transition patient to Lasix 40 mg PO daily starting in the AM of 11/25 -now on entrsto and beta celsa. -BL SCDs and Sub-Q lovenox for DVT PPX (2) Pulmonary edema: Plan: -See NSTEMI -Patient has been on Triamterene-HCTZ with once weekly PO lasix -Continue with BID IV lasix for now, follow TTE tomorrow -Will likely need to be discharged on daily lasix as it will be difficult to control his salt intake with is baseline intellectual disablilities -may need to place on putnam cathetr as he had >600 ml in bladder scan. will straight cath initially. (3) Hypertension: Plan: -Stable -Continue Diuretics (4) Elevated bilirubin: Plan: -Total bili elevated today at 2.2, all other LFTs WNL, patient is without abdominal discomfort -INR elevated at 1.4 -Could be a component of liver congestion from his CHF -Monitor am CMP -bilirubin has been steady will obtain hepatitis panel (5) Dyslipidemia: Plan: -Conitnue statin (6) Diabetes: Plan: -Hold home antihyperglycemics -Will start with 5 units lantus BID, correction factor of 50 and carb ratio of 15 -Monitor BSG ACHS with goal of 110-160 -DM II diet with 2gm sodium restriction and 2L fluid restriction (7) CVA (cerebrovascular accident): Plan: -Continue aspirin and plavix (8) Intellectual disability: Plan: -Continue TID prn buspar for anxiety -will schedule zyprexa at 18:00. 5 mg. -Will order 2.5 mg IM Zyprexa q4h prn for agitation/aggression (9) CAD (coronary artery disease): Plan: -Continue aspirin Admission and Anticipated Discharge Date Admission Date: November 21, 2022 Subjective Patient appears comfortable. Had discussion with nurse, patient has not been urinating. Bladder scan had 650 ml. Review of Systems Review of Systems: All systems reviewed & are unremarkable except as noted in HPI & below Physical Exam Physical Exam: General:In no acute distress, stated age, chronically ill-appearing, non-toxic appearing HEENT:Normocephalic, atraumatic, scleral icterus is noted, pupils around round, symmetrical, and reactive to light, moist mucus membranes, trachea midline, no thyromegaly Chest/Pulm:No respiratory distress, symmetrical chest expansion, crackles and BL expiratory wheezing noted in the middle and upper lung jaquez, decreased breath sounds in the BL lower lung jaquez Cardiac:RRR, no murmurs noted Abdomen:Negative for ascites and bruising, normoactive bowel sounds, soft, non-tender to palpation throughout Musculoskeletal:Symmetrical and without signs of acute trauma, upper and lower extremities with full ROM, no atrophy, spasticity, or flaccidity Extremities:Radial, dorsalis pedis, and posterior tibial pulses are intact and symmetrical, 2+ pitting edema noted in the BL LE's Skin:Patient with symmetrical erythema in the BL LE's consistent with venous stasis, extensive healing/scabbed abrasions and cuts on the BL LE's, no signs of infection or drainage Neuro:Alert oriented to self, no focal defects and symmetrical strength in the BL Upper and lower extremities Psych:Patient is mildly anxious during my exam but is not aggressive and is cooperative during the exam/follows commands Results & Data Results & Data ([facility]) Vital Signs (Past 12 Hours) Vital Signs Temp Pulse Pulse Resp BP BP Pulse Ox 11/25/22 07:36 74 11/25/22 07:29 11/25/22 07:17 36.4 C L 72 20 111/62 95 11/25/22 03:16 36.7 C 68 18 111/62 95 11/25/22 00:16 74 11/24/22 23:27 36.7 C 69 18 121/71 95 O2 Del Method 11/25/22 07:36 11/25/22 07:29 Room Air 11/25/22 07:17 Room Air 11/25/22 03:16 Room Air 11/25/22 00:16 11/24/22 23:27 Room Air PG Care Time/CCT Total # of Minutes Spent Total Time Spent with Patient: Total time spent is greater than 50% in coordination of care (as documented) at patient's floor/unit and/or counseling patient: Coding Level of Care Code 28003 SUB INP/OBS CARE 2/35MIN Diagnoses Elevated troponin R77.8 Pulmonary edema J81.0 Chronicity: acute Hypertension I10 Elevated bilirubin R17 Dyslipidemia E78.5 Diabetes E11.9 CVA (cerebrovascular accident) I63.9 CVA mechanism: unspecified Intellectual disability F79 CAD (coronary artery disease) I25.10 (2) Pulmonary edema Chronicity: acute Qualified Code(s): J81.0 - Acute pulmonary edema (7) CVA (cerebrovascular accident) CVA mechanism: unspecified Qualified Code(s): I63.9 - Cerebral infarction, unspecified
[2022-11-25] MEDS ORDERED: TAMSULOSIN HCL 0.4 MG CAP PO STA (11:12)
[2022-11-25] MEDS: OLANZapine 5 MG TABLET PO SCH (17:45)
[2022-11-25] MEDS: ASPIRIN 81 MG ECTAB PO SCH (20:16)
[2022-11-25] MEDS: ENOXAPARIN INJ 40 MG/0.4 ML SYR SQ SCH (20:16)
[2022-11-25] MEDS ORDERED: TAMSULOSIN HCL 0.4 MG CAP PO SCH (21:00)
[2022-11-25] MEDS: busPIRone 5 MG TAB PO PRN (22:00)
[2022-11-25] MEDS: OLANZapine 10 MG/2.1 ML SDV IM PRN (22:08)
[2022-11-26] MEDS: OLANZapine 10 MG/2.1 ML SDV IM PRN (03:48)
[2022-11-26] MEDS: busPIRone 5 MG TAB PO PRN (08:41)
[2022-11-26] MEDS: VALSARTAN/SACUBITRIL 26/24MG TAB PO SCH ×2 (08:41→20:25)
[2022-11-26] MEDS: FINASTERIDE 5 MG TAB PO SCH (08:42)
[2022-11-26] MEDS: ATORVASTATIN 40 MG TAB PO SCH (08:42)
[2022-11-26] MEDS: METOPROLOL SUCC 25MG EXT REL TAB PO SCH (08:42)
[2022-11-26] MEDS: FUROSEMIDE 40 MG TAB PO SCH (08:42)
[2022-11-26] MEDS: CLOPIDOGREL BISULFATE 75 MG TAB PO SCH (08:42)
[2022-11-26] MEDS: INSULIN ASPART PER UNIT SC SCH ×4 (08:43→20:23)
[2022-11-26] MEDS: LANTUS PER UNIT CHARGE SQ SCH ×2 (08:50→20:24)
[2022-11-26 12:23] LABS: HBSAG NON-REACTIVE (NON-REACTIVE); Hepatitis A Antibody IgM NON-REACTIVE (NON-REACTIVE); Hepatitis B Core Antibody IgM NON-REACTIVE (NON-REACTIVE)
--- NOTE | 2022-11-26 12:59 | Hospitalist Progress Note ---
Date of Service November 26, 2022 Assessment & Plan (1) Elevated troponin: Plan: Acute on chronic systolic heart failure. TTE showed severe dysfunction of left ventricle -Admit to the PCU -The patient is currently afebrile, hemodynamically stable and stable on RA -The patient presented today with ongoing MCKEON, LE edema, and a non-productive cough. Chest xray was noted to have evidence of CHF with BL small plural effusions. -BNP was elevated at 877 with initial high sensitivity trop of 200 -The patient is without chest pain and subjective SOB at rest, sister states that he has been having progressive MCKEON and only able to walk short distances at this time -His current status and troponin elevation is likely a NSTEMI due to demand for CHF failure -NO acute ECG changes noted -as creatinine is creeping up, will transition patient to Lasix 40 mg PO daily starting in the AM of 11/25 -will continue -now on entresto and beta celsa. -BL SCDs and Sub-Q lovenox for DVT PPX (2) Pulmonary edema: Plan: -See NSTEMI -Urinary retention -Patient has been on Triamterene-HCTZ with once weekly PO lasix -Continue with BID IV lasix for now, follow TTE tomorrow -Will likely need to be discharged on daily lasix as it will be difficult to control his salt intake with is baseline intellectual disablilities Placed putnam catheter on 11/26. continue tamsulosin (added on 11/25) and finasteride (3) Hypertension: Plan: -Stable -Continue Diuretics (4) Elevated bilirubin: Plan: -Total bili elevated today at 2.2, all other LFTs WNL, patient is without abdominal discomfort -INR elevated at 1.4 -Could be a component of liver congestion from his CHF -Monitor am CMP -bilirubin has been steady will obtain hepatitis panel: pending (5) Dyslipidemia: Plan: -Conitnue statin (6) Diabetes: Plan: -Hold home antihyperglycemics -Will start with 5 units lantus BID, correction factor of 50 and carb ratio of 15 -Monitor BSG ACHS with goal of 110-160 -DM II diet with 2gm sodium restriction and 2L fluid restriction (7) CVA (cerebrovascular accident): Plan: -Continue aspirin and plavix (8) Intellectual disability: Plan: -Continue TID prn buspar for anxiety -will schedule zyprexa at 18:00. 5 mg. -Will order 2.5 mg IM Zyprexa q4h prn for agitation/aggression (9) CAD (coronary artery disease): Plan: -Continue aspirin Admission and Anticipated Discharge Date Admission Date: November 21, 2022 Subjective Patient appears comfortable and has no new complaints. Review of Systems Review of Systems: All systems reviewed & are unremarkable except as noted in HPI & below Physical Exam Physical Exam: General:In no acute distress, stated age, chronically ill-appearing, non-toxic appearing HEENT:Normocephalic, atraumatic, scleral icterus is noted, pupils around round, symmetrical, and reactive to light, moist mucus membranes, trachea midline, no thyromegaly Chest/Pulm:No respiratory distress, symmetrical chest expansion, crackles and BL expiratory wheezing noted in the middle and upper lung jaquez, decreased breath sounds in the BL lower lung jaquez Cardiac:RRR, no murmurs noted Abdomen:Negative for ascites and bruising, normoactive bowel sounds, soft, non-tender to palpation throughout Musculoskeletal:Symmetrical and without signs of acute trauma, upper and lower extremities with full ROM, no atrophy, spasticity, or flaccidity Extremities:Radial, dorsalis pedis, and posterior tibial pulses are intact and symmetrical, 2+ pitting edema noted in the BL LE's Skin:Patient with symmetrical erythema in the BL LE's consistent with venous stasis, extensive healing/scabbed abrasions and cuts on the BL LE's, no signs of infection or drainage Neuro:Alert oriented to self, no focal defects and symmetrical strength in the BL Upper and lower extremities Psych:Patient is cooperative during the exam/follows commands Results & Data Results & Data ([facility]) Vital Signs (Past 12 Hours) Vital Signs Temp Pulse Resp BP BP Pulse Ox O2 Del Method 11/26/22 11:30 36.6 C 65 20 105/65 95 Room Air 11/26/22 07:57 35.5 C L 69 20 105/67 96 Room Air 11/26/22 03:48 36.9 C 65 16 110/69 94 Room Air PG Care Time/CCT Total # of Minutes Spent Total Time Spent with Patient: Total time spent is greater than 50% in coordination of care (as documented) at patient's floor/unit and/or counseling patient: Coding Level of Care Code 61032 SUB INP/OBS CARE 235MIN Diagnoses Elevated troponin R77.8 Pulmonary edema J81.0 Chronicity: acute Hypertension I10 Elevated bilirubin R17 Dyslipidemia E78.5 Diabetes E11.9 CVA (cerebrovascular accident) I63.9 CVA mechanism: unspecified Intellectual disability F79 CAD (coronary artery disease) I25.10 (2) Pulmonary edema Chronicity: acute Qualified Code(s): J81.0 - Acute pulmonary edema (7) CVA (cerebrovascular accident) CVA mechanism: unspecified Qualified Code(s): I63.9 - Cerebral infarction, unspecified
[2022-11-26] MEDS: OLANZapine 5 MG TABLET PO SCH (17:29)
[2022-11-26] MEDS: ASPIRIN 81 MG ECTAB PO SCH (20:24)
[2022-11-26] MEDS: TAMSULOSIN HCL 0.4 MG CAP PO SCH (20:25)
[2022-11-26] MEDS: ENOXAPARIN INJ 40 MG/0.4 ML SYR SQ SCH (20:25)
--- NOTE | 2022-11-27 09:03 | Hospitalist Progress Note ---
Date of Service November 27, 2022 Assessment & Plan (1) Acute systolic (congestive) heart failure: Plan: Acute on chronic systolic heart failure. TTE showed severe dysfunction of left ventricle SOB likely multifactorial from above problem and urinary retention. -Admitted to the PCU -The patient is currently afebrile, hemodynamically stable and stable on RA -Patient had evidence of CHF with bilateral small effusions. -Patient improvied with diuresing. -Over the course of the hospital stay he also had urinary retention likely from BPH. Patient on finasteride as an outpatient, added tamsulosin. Placed putnam and patient has been tolerating this. Patient will followup with Urology as an outpatient. -The patient is without chest pain and subjective SOB at rest, sister states that he has been having progressive MCKEON and only able to walk short distances at this time -His current status and troponin elevation is likely a NSTEMI due to demand for CHF failure -NO acute ECG changes noted -as creatinine is creeping up, will transition patient to Lasix 40 mg PO daily starting in the AM of 11/25 -will continue -now on entresto and beta celsa. -BL SCDs and Sub-Q lovenox for DVT PPX (2) Elevated troponin: Plan: as above. Possible NSTEMI type II (3) Pulmonary edema: Plan: -See NSTEMI , problem 1 -Urinary retention -Patient has been on Triamterene-HCTZ with once weeklyand PO lasix -Initally pm BID IV lasix now on PO. -Will likely need to be discharged on daily lasix as it will be difficult to control his salt intake with is baseline intellectual disablilities Placed putnam catheter on 11/26. continue tamsulosin (added on 11/25) and finasteride will need outpatient Urology followup (4) Hypertension: Plan: -Stable -Continue Diuretics (5) Elevated bilirubin: Plan: -Total bili elevated today at 2.2, all other LFTs WNL, patient is without abdominal discomfort -INR elevated at 1.4 -Could be a component of liver congestion from his CHF -Monitor am CMP -bilirubin has been steady will obtain hepatitis panel: negative, Reached out to Dr. Li if any additional workup required. Stated to place consult. Appreciate input. (6) Dyslipidemia: Plan: -Conitnue statin (7) Diabetes: Plan: -Hold home antihyperglycemics -Will start with 5 units lantus BID, correction factor of 50 and carb ratio of 15 -Monitor BSG ACHS with goal of 110-160 -DM II diet with 2gm sodium restriction and 2L fluid restriction (8) CVA (cerebrovascular accident): Plan: -Continue aspirin and plavix (9) Intellectual disability: Plan: -Continue TID prn buspar for anxiety Patient has intermittently required IM zyprexa, one night, patient required 7 .5mg to calm down. -Safe to take 5 mg dose at first. (10) CAD (coronary artery disease): Plan: -Continue aspirin Admission and Anticipated Discharge Date Admission Date: November 21, 2022 Subjective Patient reports being comofortable in bed. He did not have a difficult night. He is tolerating his putnam catheter Review of Systems Review of Systems: All systems reviewed & are unremarkable except as noted in HPI & below Physical Exam Physical Exam: General:In no acute distress, stated age, chronically ill-appearing, non-toxic appearing HEENT:Normocephalic, atraumatic, scleral icterus is noted, pupils around round, symmetrical, and reactive to light, moist mucus membranes, trachea midline, no thyromegaly Chest/Pulm:No respiratory distress, symmetrical chest expansion, crackles and BL expiratory wheezing noted in the middle and upper lung jaquez, decreased breath sounds in the BL lower lung jaquez Cardiac:RRR, no murmurs noted Abdomen:Negative for ascites and bruising, normoactive bowel sounds, soft, non-tender to palpation throughout Musculoskeletal:Symmetrical and without signs of acute trauma, upper and lower extremities with full ROM, no atrophy, spasticity, or flaccidity Extremities:Radial, dorsalis pedis, and posterior tibial pulses are intact and symmetrical, 2+ pitting edema noted in the BL LE's Skin:Patient with symmetrical erythema in the BL LE's consistent with venous stasis, extensive healing/scabbed abrasions and cuts on the BL LE's, no signs of infection or drainage Neuro:Alert oriented to self, no focal defects and symmetrical strength in the BL Upper and lower extremities Psych:Patient is cooperative during the exam/follows commands : draining putnam Results & Data Results & Data ([facility]) Vital Signs (Past 12 Hours) Vital Signs Temp Pulse Pulse Resp BP BP Pulse Ox 11/27/22 08:24 36.5 C 70 20 105/68 95 11/27/22 03:15 36.5 C 73 20 109/69 93 11/27/22 00:22 36.4 C L 69 20 108/69 92 11/26/22 22:29 76 O2 Del Method 11/27/22 08:24 Room Air 11/27/22 03:15 Room Air 11/27/22 00:22 Room Air 11/26/22 22:29 PG Care Time/CCT Total # of Minutes Spent Total Time Spent with Patient: Total time spent is greater than 50% in coordination of care (as documented) at patient's floor/unit and/or counseling patient: Coding Level of Care Code 96710 SUB INP/OBS CARE 2/35MIN Diagnoses Acute systolic (congestive) heart failure I50.21 Elevated troponin R77.8 Pulmonary edema J81.0 Chronicity: acute Hypertension I10 Elevated bilirubin R17 Dyslipidemia E78.5 Diabetes E11.9 CVA (cerebrovascular accident) I63.9 CVA mechanism: unspecified Intellectual disability F79 CAD (coronary artery disease) I25.10 (3) Pulmonary edema Chronicity: acute Qualified Code(s): J81.0 - Acute pulmonary edema (8) CVA (cerebrovascular accident) CVA mechanism: unspecified Qualified Code(s): I63.9 - Cerebral infarction, unspecified
[2022-11-27] MEDS: METOPROLOL SUCC 25MG EXT REL TAB PO SCH (09:07)
[2022-11-27] MEDS: CLOPIDOGREL BISULFATE 75 MG TAB PO SCH (09:07)
[2022-11-27] MEDS: FUROSEMIDE 40 MG TAB PO SCH (09:07)
[2022-11-27] MEDS: VALSARTAN/SACUBITRIL 26/24MG TAB PO SCH ×2 (09:07→20:29)
[2022-11-27] MEDS: FINASTERIDE 5 MG TAB PO SCH (09:07)
[2022-11-27] MEDS: ATORVASTATIN 40 MG TAB PO SCH (09:07)
[2022-11-27] MEDS: INSULIN ASPART PER UNIT SC SCH ×4 (09:09→20:27)
[2022-11-27] MEDS: LANTUS PER UNIT CHARGE SQ SCH ×2 (09:09→20:28)
[2022-11-27 09:56] LABS: Hematocrit (blood only) 45.5 % (42.0-52.0); Hemoglobin 15.4 g/dl (14.0-18.0); Mean Corpuscular Hemoglobin 29.6 pg (25.0-34.0); Mean Corpuscular Hgb Conc 33.8 g/dL (32.0-36.0); Mean Corpuscular Volume 87.3 fL (80.0-100.0); Mean Platelet Volume 11.3 fL (9.4-12.4); Platelet Count 135 K/uL (130-400); RDW Coefficient of Variation 14.7 % (11.5-14.5); RDW Standard Deviation 47.6 fL (36.4-46.3); Red Blood Count 5.21 M/uL (4.70-6.10); White Blood Count 8.46 K/ul (4.8-10.8)
[2022-11-27 09:59] LABS: INR 1.3 (0.9-1.1); Prothrombin Time 13.4 Seconds (9.0-12.0)
[2022-11-27 10:05] LABS: Albumin Globulin Ratio 1.2 (0.9-2); BUN Creatinine Ratio 30.9 (10-20); Calcium 8.8 mg/dl (8.5-10.1); Creatinine Clr Calc Pharmacy 80.2 ml/min; Est GFR (African American) 91.3 ml/min; Est GFR (Non-African American) 78.8 ml/min; Globulin 3.3 gm/dl (2.5-4.0); Potassium 4.1 mmol/L (3.5-5.1); Total Protein 7.3 gm/dl (6.0-8.3); Troponin I High Sensitivity 27.6 pg/ml (0-20)
--- NOTE | 2022-11-27 13:35 | Gastrointestinal Consultation ---
Date of Consultation November 27, 2022 Assessment & Plan (1) Abnormal liver enzymes: Discussed case with Dr. Li. Suspect at this time that the abnormalities are likely secondary to his current issues with acute on chronic heart failure. Can continue to monitor. US unremarkable. I advised the patient to cease etoh use. Supervising Physician Co-Signing Physician Notes Agree with ROBERTO Grande as above Abd: Soft, NT, ND Continue current therapy and supportive care History of Present Illness Reason for Consultation: Abnormal LFTs Requesting Physician: Wes Alcazar MD Attending Physician: Wes Alcazar History of Present Illness Patient is a 72 year old male with a past medical history significant for intellectual disability, HFpEF (LVEF of 50-55% and mod aortic sclerosis as of 07/27/21), HTN, dyslipidemia, DM II, previous CVA, carotid artery stenosis, and previous seizures who presented to the [facility] ED on 11/21/22 with a chief complaint of worsening SOB. He was then admitted with acute on chronic heart failure. GI consulted for abnormal lfts during this admission. Hep panel was unremarkable. US was unremarkable. It is difficult to obtain history from patient and he is hard to direct. He tells me he does have a history of drinking 10 beers a night once a week, no family history of liver disease. no drug use. Patient denies any current issues with nausea, vomiting, dysphagia, heartburn, abdominal pain, unintentional weight loss, change in bowels, melena, or bright red blood per rectum. 11/27/22 total bili 2, ast 62, alt 74, alk phos 107. US of liver 11/23/22 unremarkable. Allergies Allergy/AdvReac Type Severity Reaction Status Date / Time amoxicillin [From Augmentin] Allergy Unknown CAN'T Verified 11/13/22 15:08 REMEMBER clavulanic acid Allergy Unknown CAN'T Verified 11/13/22 15:08 [From Augmentin] REMEMBER Penicillins Allergy Unknown CAN'T Verified 11/13/22 15:08 REMEMBER Home Medications Medication Instructions Recorded Confirmed Type acetaminophen 500 mg tablet 1,000 mg PO DIRECTED PRN Pain 06/25/19 11/21/22 History (Tylenol Extra Strength) aspirin 81 mg tablet,delayed 81 mg PO QPM 08/06/19 11/21/22 History release atorvastatin 40 mg tablet 40 mg PO DAILY #90 tabs 01/07/22 11/21/22 Rx metformin 500 mg tablet,extended 2,000 mg PO DAILY #360 tabs 01/07/22 11/21/22 Rx release 24 hr sitagliptin phosphate 100 mg 100 mg PO DAILY #90 tabs 01/07/22 11/21/22 Rx tablet (Januvia) insulin glargine 100 unit/mL (3 14 unit (0.14 mL) subcut QPM #15 mL 04/12/22 11/21/22 Rx mL) subcutaneous pen (Basaglar KwikPen U-100 Insulin) clopidogrel 75 mg tablet 75 mg PO DAILY #90 tabs 04/30/22 11/21/22 Rx pen needle, diabetic 31 gauge x #100 ea 05/08/22 11/21/22 Rx 5/16" (1st Tier Unifine Pentips) finasteride 5 mg tablet (Proscar) 5 mg PO DAILY #90 tabs 06/10/22 11/21/22 Rx triamterene 37.5 1 tab PO DAILY #90 tabs 06/10/22 11/21/22 Rx mg-hydrochlorothiazide 25 mg tablet (Maxzide-25mg) nystatin 100,000 unit/gram topical 1 applic topical BID PRN rash #30 07/18/22 11/21/22 Rx powder grams buspirone 10 mg tablet 10 mg PO TID PRN anxiety 90 days 11/14/22 11/21/22 Rx #270 tabs furosemide 20 mg tablet (Lasix) 20 mg PO DAILY #15 tabs 11/14/22 11/21/22 Rx blood sugar diagnostic (FreeStyle #100 strips 11/21/22 11/21/22 Rx Lite Strips) glimepiride 2 mg tablet 2 mg PO QAM 11/21/22 11/21/22 History Patient History Medical History Abnormal EKG Carotid artery stenosis with cerebral infarction CVA (cerebrovascular accident) 06/28/19: Posterior left hemispheric multifocal infarct s/p tPA ([facility])- right sided residual deficit- on plavix Diabetes NIDDM Dyslipidemia Elevated troponin I level GI bleed History of small bowel obstruction Hypertension Intellectual disability resides with his sister. 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 Physical Exam Constitutional: WD/WN, vitals as above Respiratory: normal respiratory effort, lungs clear to auscultation Cardiovascular: RRR, no murmur, no edema Gastrointestinal (Abdomen): normal bowel sounds, soft, nontender, no hepatosplenomegaly Skin: no rashes, warm and dry Psychiatric: Orientation: alert Affect: euthymic affect Results & Data ([facility]) Vital Signs (Past 12 Hours) Vital Signs Temp Pulse Resp BP BP Pulse Ox O2 Del Method 11/27/22 11:19 36.5 C 70 19 99/66 L 95 Room Air 11/27/22 08:00 Room Air 11/27/22 08:24 36.5 C 70 20 105/68 95 Room Air 11/27/22 03:15 36.5 C 73 20 109/69 93 Room Air Diagnostic Findings US liver CLINICAL HISTORY: Elevated liver function tests. COMPARISON STUDY: CT of the abdomen and pelvis July 26, 2021. FINDINGS: This exam was technically difficult to obtain. There is no definite biliary ductal dilatation status post cholecystectomy. No hepatic lesions are identified although sensitivity is diminished on this exam. Pancreatic body is normal. Head and tail are obscured. There is no right hydronephrosis. IMPRESSION: Technically difficult exam but no significant abnormality identified within the right upper quadrant status post cholecystectomy. ACT 112: Negative or not required by law. Electronically signed by: Lamont Wilson M.D. 11/23/2022 2:03 PM PG Care Time/CCT Total # of Minutes Spent Total Time Spent with Patient: Total time spent is greater than 50% in coordination of care (as documented) at patient's floor/unit and/or counseling patient: Coding Level of Care Code 99919 INT INP/OBS CARE 1/40MIN Diagnoses Abnormal liver enzymes R74.8 Time Spent (min) 40
[2022-11-27] MEDS: OLANZapine 5 MG TABLET PO SCH (17:43)
[2022-11-27] MEDS: ASPIRIN 81 MG ECTAB PO SCH (20:28)
[2022-11-27] MEDS: ENOXAPARIN INJ 40 MG/0.4 ML SYR SQ SCH (20:28)
[2022-11-27] MEDS: TAMSULOSIN HCL 0.4 MG CAP PO SCH (20:29)
[2022-11-27] MEDS: busPIRone 5 MG TAB PO PRN (21:05)
[2022-11-28] MEDS: METOPROLOL SUCC 25MG EXT REL TAB PO SCH (08:50)
[2022-11-28] MEDS: FINASTERIDE 5 MG TAB PO SCH (08:50)
[2022-11-28] MEDS: ATORVASTATIN 40 MG TAB PO SCH (08:50)
[2022-11-28] MEDS: VALSARTAN/SACUBITRIL 26/24MG TAB PO SCH ×2 (08:50→21:22)
[2022-11-28] MEDS: CLOPIDOGREL BISULFATE 75 MG TAB PO SCH (08:50)
[2022-11-28] MEDS: FUROSEMIDE 40 MG TAB PO SCH (08:50)
[2022-11-28] MEDS: busPIRone 5 MG TAB PO PRN (08:50)
[2022-11-28] MEDS: INSULIN ASPART PER UNIT SC SCH ×4 (08:51→21:26)
[2022-11-28] MEDS: LANTUS PER UNIT CHARGE SQ SCH ×2 (08:52→21:27)
--- NOTE | 2022-11-28 15:43 | Hospitalist Progress Note ---
Date of Service November 28, 2022 Assessment & Plan (1) Acute systolic (congestive) heart failure: Plan: Acute on chronic systolic heart failure. TTE showed severe dysfunction of left ventricle -pt actively diuresed and improved -Over the course of the hospital stay he also had acute urinary retention likely from BPH. finasteride as an outpatient, added tamsulosin. Placed putnam and patient has been tolerating this. followup with Urology as an outpatient. troponin elevation is likely type II CO with demand ischemia -NO acute ECG changes noted - transition patient to Lasix 40 mg PO daily starting in the AM of 11/25 -now on entresto and beta celsa. -BL SCDs and Sub-Q lovenox for DVT PPX (2) Elevated troponin: Plan: as above. Possible NSTEMI type II (3) Pulmonary edema: Plan: -secondary to HFrEF treated with daily diuretics (4) Hypertension: Plan: -Chronic and Stable -Continue Diuretics entresto b celsa (5) Elevated bilirubin: Plan: -Total bili elevated 2.2, all other LFTs WNL, patient is without abdominal discomfort. US unremarkable, no further work up -INR elevated at 1.4 -Could be a component of liver congestion from his CHF - hepatitis panel: negative, (6) Dyslipidemia: Plan: -Conitnue statin (7) Diabetes: Plan: -Hold home antihyperglycemics -Will start with 5 units lantus BID, correction factor of 50 and carb ratio of 15 -Monitor BSG ACHS with goal of 110-160 -DM II diet with 2gm sodium restriction and 2L fluid restriction (8) CVA (cerebrovascular accident): Plan: -Continue aspirin and plavix (9) Intellectual disability: Plan: -Continue TID prn buspar for anxiety Patient has intermittently required IM zyprexa, one night, patient required 7.5mg to calm down. -Safe to take 5 mg dose at first. (10) CAD (coronary artery disease): Plan: -Continue aspirin Admission and Anticipated Discharge Date Admission Date: November 21, 2022 Subjective Present in room with his sister he is offering no complaints he is pleasant Physical Exam Physical Exam: Cardiac exam is regular, systolic murmur is present lungs are clear extremity is with trace edema Results & Data Results & [facility] ([facility]) Vital Signs (Past 12 Hours) Vital Signs Temp Pulse Resp BP Pulse Ox O2 Del Method 03/02/23 12:23 97.3 F L 67 16 105/65 94 Room Air 11/28/22 06:21 97.7 F 74 18 109/71 95 Room Air PG Care Time/CCT Total # of Minutes Spent Total Time Spent with Patient: Total time spent is greater than 50% in coordination of care (as documented) at patient's floor/unit and/or counseling patient: Coding Level of Care Code 13987 SUB INP/OBS CARE 2/35MIN Diagnoses Acute systolic (congestive) heart failure I50.21 Elevated troponin R77.8 Pulmonary edema J81.0 Chronicity: acute Hypertension I10 Elevated bilirubin R17 Dyslipidemia E78.5 Diabetes E11.9 CVA (cerebrovascular accident) I63.9 CVA mechanism: unspecified Intellectual disability F79 CAD (coronary artery disease) I25.10 (3) Pulmonary edema Chronicity: acute Qualified Code(s): J81.0 - Acute pulmonary edema (8) CVA (cerebrovascular accident) CVA mechanism: unspecified Qualified Code(s): I63.9 - Cerebral infarction, unspecified
[2022-11-28] MEDS: OLANZapine 5 MG TABLET PO SCH (17:20)
[2022-11-28] MEDS: ENOXAPARIN INJ 40 MG/0.4 ML SYR SQ SCH (21:22)
[2022-11-28] MEDS: ASPIRIN 81 MG ECTAB PO SCH (21:22)
[2022-11-28] MEDS: TAMSULOSIN HCL 0.4 MG CAP PO SCH (21:23)
[2022-11-29] MEDS: busPIRone 5 MG TAB PO PRN ×2 (00:49→09:03)
[2022-11-29] MEDS: VALSARTAN/SACUBITRIL 26/24MG TAB PO SCH (09:03)
[2022-11-29] MEDS: METOPROLOL SUCC 25MG EXT REL TAB PO SCH (09:03)
[2022-11-29] MEDS: FINASTERIDE 5 MG TAB PO SCH (09:03)
[2022-11-29] MEDS: ATORVASTATIN 40 MG TAB PO SCH (09:03)
[2022-11-29] MEDS: FUROSEMIDE 40 MG TAB PO SCH (09:03)
[2022-11-29] MEDS: CLOPIDOGREL BISULFATE 75 MG TAB PO SCH (09:03)
[2022-11-29] MEDS: INSULIN ASPART PER UNIT SC SCH ×2 (09:04→12:08)
[2022-11-29] MEDS: LANTUS PER UNIT CHARGE SQ SCH (09:05)
--- NOTE | 2022-11-29 14:30 | Discharge Summary ---
Date of Service November 29, 2022 Admission HPI Per Admitting Provider Allen is a 72 year old male with a PMH significant for intellectual disability, HFpEF (LVEF of 50-55% and mod aortic sclerosis as of 07/27/21), HTN, dyslipidemia, DM II, previous CVA, carotid artery stenosis, and previous seizures who presented to the [facility] ED on 11/21/22 with a chief complaint of worsening SOB. Per chart review, the patient was last seen in the [facility] ED on 11/08/22 for lower extremity edema and SOB. His workup revealed pulmonary vascular congestion without overt pulmonary edema. He was given IV lasix and then discharged on a 5 day course of 20 mg PO lasix. He was seen by his PCP on 11/13/22 for follow-up. Per the clinic note, the patient's edema and SOB improved with the PO lasix. Per the clinic note the patient consumes large quantities of salt with meals and eats lots of salty snacks. At the visit his PCP recommended reducing his salt intake, compression stockings, and leg elevation. They wanted to see how he would do off of diuretics before starting him on regular doses. In the ED today the patient was found to be afebrile, hemodynamically stable, and stable on RA. Labs were remarkable for a CBC WNL, INR of 1.4, stable Cr at 0.90, glucose of 129, calcium of 10.6, total bili of 2.2 otherwise stable LFTs, BNP of 877 (No previous values to compare to), inial high sensitivity trop of 200, and covid/influenza/RSV negative. Chest xray was read as "1. Cardiomegaly with evidence of congestive failure. 2. Suspect small pleural effusions.". Prior to admission the patient was given 40 mg IV lasix and 324 mg PO Aspirin. At the time of the exam the patient was sitting comfortably in bed in no acute distress with his sister/primary caregiver sitting bedside, history was obtained from the patient's sister due to his baseline mental status. She states that since his last ED visit he has continued to have issues with LE swelling, a non-productive cough, and progressive dyspnea on exertion. She states that the initial 5 day course of lasix improved most of hs symptoms. She explained that the patient is still taking triamterene-HCTZ as prescribed, his PCP gave them a prescription for one weekly PO lasix at 20 mg. She last gave him a dose on 11/16/22. She confirms that he prefers salty foods and also puts salt on all of his meals, this is hard to control. She does not like it when they try to elevate his legs. He has been having progressive generalized weakness in his BL LE's causing him to be less steady on his feet but he has not sustained a recent fall. When asked, they deny recent fevers, chills, chest pain, abdominal pain, nausea, vomiting, diarrhea, dysuria, hematuria, and recent falls. His sister exaplains that the patient often gets upset and agitated when he has to stay in the hospital. She states that when he has been admitted in the past he has had to receive IM medications to keep him calm. We discussed code status, his sister wishes him to be a DNR/DNI. Please refer to Dr. Finch's attetsation for any changes to the treatment plan Principal Diagnosis Acute on chronic systolic heart failure BPH with lower urinary tract symptoms NSTEMI Diabetes Intellectual disability Discharge Exam Patient was in his normal state he was without complaints he was lying in bed today he was not dyspneic or labored with his respirations in any way he still has trace lower extremity edema he is pleasant although intellectually impaired Discharge Data Allergies Allergy/AdvReac Type Severity Reaction Status Date / Time amoxicillin [From Augmentin] Allergy Unknown CAN'T Verified 11/13/22 15:08 REMEMBER clavulanic acid Allergy Unknown CAN'T Verified 11/13/22 15:08 [From Augmentin] REMEMBER Penicillins Allergy Unknown CAN'T Verified 11/13/22 15:08 REMEMBER Consultations 11/21/22 17:46 ED Decision to Admit Stat 11/22/22 07:00 Consult Cardiology Routine 11/27/22 12:31 Consult Gastroenterology Routine Ordered Studies 11/23/22 09:57 US RUQ [US liver] Routine Hospital Course (1) Acute systolic (congestive) heart failure: Acute on chronic systolic heart failure. TTE showed severe dysfunction of left ventricle -pt actively diuresed and improved -Over the course of the hospital stay he also had acute urinary retention likely from BPH. finasteride as an outpatient, added tamsulosin. Placed putnam and patient has been tolerating this. followup with Urology as an outpatient. will keep putnam till urology follow up and voiding trial troponin elevation is likely type II NJ with demand ischemia -NO acute ECG changes noted - transition patient to Lasix 40 mg PO daily starting in the AM of 11/25 -now on entresto and beta celsa. (2) Elevated troponin: as above. NSTEMI type II (3) Pulmonary edema: -secondary to HFrEF treated with daily diuretics, and guideline directed therapy (4) Hypertension: -Chronic and Stable -Continue Diuretics entresto b celsa (5) Elevated bilirubin: -Total bili elevated 2.2, all other LFTs WNL, patient is without abdominal discomfort. US unremarkable, no further work up -INR elevated at 1.4 -Could be a component of liver congestion from his CHF - hepatitis panel: negative, (6) Dyslipidemia: -Conitnue statin (7) Diabetes: -return to home glimepiride, metformin, Januvia and glargine, januvia may also help systolic heart failure (8) CVA (cerebrovascular accident): -Continue aspirin and plavix (9) Intellectual disability: -Continue TID prn buspar for anxiety zyprexa, 5 mg for behvior control (10) CAD (coronary artery disease): -Continue aspirin Total Time Total Time Spent Total Time Spent (In Minutes): It required greater than 30 minutes to prepare this patient for discharge Discharge Plan Discharge Items Patient Disposition: Transfer Inpatient Rehab Fac Reason For Visit: SOB Discharge Diagnosis: acute systolic heart failure nstemi diabetes Activity: Per Instructions section Activity Comment: per PT/OT Non-emergency contact: Primary Care Provider Call non-emergency contact if: your symptoms worsen Follow-up/Referrals: Renzo Patten MD [Primary Care Provider] - Diet: Carb Consistent or DM2 and Low Sodium (2gm) Addtl Attending Provider Instructions: please follow systolic heart failure guidelines with regard to having daily weights and assesing volume status survey blood glucoses as we transition to outpt regime Pending Studies at Discharge: No Stand-Alone Forms: My [facility] Skilled Items Patient informed of condition?: Yes DNR: Yes Discharge Level of Care: Acute rehab Communicable Disease: No Discharge Prognosis: Stable Lines: None Urinary Catheter: Yes Medications and DC Order Prescriptions: New tamsulosin 0.4 mg Capsule 0.4 mg PO HS Qty: 30 0RF metoprolol succinate 25 mg Tablet Extended Release 24 Hr 25 mg PO QAM Qty: 30 0RF Entresto 24-26 mg Tablet 1 tab PO BID Qty: 60 0RF furosemide 40 mg Tablet 40 mg PO QAM Qty: 30 0RF olanzapine 5 mg Tablet 5 mg PO 1700 Qty: 30 0RF Continued atorvastatin 40 mg tablet 40 mg PO DAILY Qty: 90 3RF Januvia 100 mg tablet 100 mg PO DAILY Qty: 90 3RF metformin 500 mg tablet extended release 24 hr 2,000 mg PO DAILY Qty: 360 3RF insulin glargine [Basaglar KwikPen U-100 Insulin] 100 unit/mL (3 mL) insulin pen 14 unit subcut QPM Qty: 15 3RF clopidogrel 75 mg tablet 75 mg PO DAILY Qty: 90 3RF (DME) pen needle, diabetic [1st Tier Unifine Pentips] 31 gauge x 5/16" needle See Rx Instructions .Route Qty: 100 3RF Rx Instructions: uses one daily finasteride [Proscar] 5 mg tablet 5 mg PO DAILY Qty: 90 3RF triamterene-hydrochlorothiazid [Maxzide-25mg] 37.5-25 mg tablet 1 tab PO DAILY Qty: 90 3RF buspirone 10 mg tablet 10 mg PO TID PRN (Reason: anxiety) 90 Days Qty: 270 3RF (DME) FreeStyle Lite Strips Strip See Rx Instructions .ROUTE .COMPLEX Qty: 100 3RF Dose Instruction: TESTING 1 TIME DAILY Rx Instructions: TESTING 1 TIME DAILY aspirin 81 mg Tablet,Delayed Release (Dr/Ec) 81 mg PO QPM glimepiride 2 mg tablet 2 mg PO QAM Discontinued acetaminophen [Tylenol Extra Strength] 500 mg tablet 1,000 mg PO DIRECTED PRN (Reason: Pain) nystatin 100,000 unit/gram powder 1 applic topical BID PRN (Reason: rash ) Qty: 30 2RF Rx Instructions: 2 bottles furosemide [Lasix] 20 mg tablet 20 mg PO DAILY Qty: 15 1RF Discharge Orders: Discharge Order (Routine); Ordered 11/29/22 Ordered By: Alberto Oswald Admission Data Admit Date/Time: 11/21/22 18:08 Attending Provider: Alberto Oswald Admit Provider: Dax Finch Primary Care Provider: Renzo Patten Other Providers: Dax Finch ; Rajesh Rubin ; Ruy Salgado ; Jossue Corey ; Omer Jean-Baptiste ; Arsh Woodruff ; Nik Rock Jr ; Steve Andersen ; Renita Ness ; Taina Jim ; Bartolo Franco ; Aristides Altamirano ; Byron Ray ; Nury Camejo ; Elayne Mckenzie ; Arnaldo Alvarez ; Gilbert Swanson ; Asad Charles ; Omer Salmeron V. ; [facility] ; [place],[facility] ; Don Li Coding Level of Care Code 87556 INP/OBS DISCH >30 MIN Diagnoses Acute systolic (congestive) heart failure I50.21 Elevated troponin R77.8 Pulmonary edema J81.0 Chronicity: acute Hypertension I10 Elevated bilirubin R17 Dyslipidemia E78.5 Diabetes E11.9 CVA (cerebrovascular accident) I63.9 CVA mechanism: unspecified Intellectual disability F79 CAD (coronary artery disease) I25.10
== END 2022-11-29 15:57 | DRG 280 ==
LOC: ED 15:56 → 4W 18:08 → SUATTDRO 18:08 → 4W 19:42